=== PATIENT | male | born 1945 | race Caucasian/White ===

== ENCOUNTER 2019-05-22 15:08 | Outpatient (CLI) | payer MEDICARE, MEDICAID, SELFPAY | END 2019-05-22 15:09 | disposition home or self-care (01) | LOC: SPT 15:08 | PROVIDERS: Family Provider Family Medicine; PCP Family Medicine; Visit Provider Podiatrist Foot & Ankle Surgery | DX: L97.512 Non-pressure chronic ulcer of other part of right foot with fat layer exposed (principal) | CPT/HCPCS: L4361 ==

== ENCOUNTER 2020-05-29 16:03 | Emergency (ER) | payer MEDICARE, MEDICAID, SELFPAY ==
[2020-05-29 16:32] VITALS: BP 148/81; PULSE 88; RESP 16; TEMP 36.7; O2SAT 95; BMI 32.3
--- NOTE | 2020-05-29 17:42 | W.ED.EXTPRO ---
HPI - Extremity Problem General: Chief complaint: Extremity Problem,Nontraumatic Stated complaint: Sore on Toe/Diabetic Time Seen by Provider: 05/29/20 17:36 History of Present Illness: HPI Narrative: Patient has a large blood blister on his right big toe lateral aspect that developed today. Patient has been going out and getting firewood. Denies any injury denies any pain course he has neuropathy. Denies any other problems MD Complaint: other (Blood blister right big toe) Onset (ago): day(s) Location: right and toe Associated symptoms: Reports no associated symptoms; Deny fever(s) Review of Systems Const: Denies: fever(s) or chills Skin/Breast: Reports: other (Blood blister on right big toe discharge today. Patient denies known injur) Psych: Denies: anxiety or depression PFS ED PFSH: Medical History (Updated 05/26/19 @ 12:32 by Raul Mckeon DPM) GERD (gastroesophageal reflux disease) Hyperglycemia Hypertension Type 2 diabetes mellitus with diabetic neuropathy, without long-term current use of insulin Surgical History (Updated 05/26/19 @ 12:12 by Raul Mckeon DPM) Hx of cataract surgery Hx of hernia repair Family History Denies family history of Diabetes CAD (coronary artery disease) Clotting disorder Dementia Hyperlipidemia Psychiatric illness Chronic kidney disease (CKD) Suicide Anesthesia complication Bleeding disorder Family history of premature coronary artery disease Lung disease Cancer Hypertension Stroke Social History (Updated 05/29/20 @ 16:36 by Alvin Strange RN) Smoking and tobacco status: current every day smoker cigarettes Packs smoked per day: 1 Alcohol intake: current Alcohol intake frequency: 3 or more drinks per day Substance/Drug Use: never Current occupational status: retired Physical Exam Const: COMMON NORMALS: no acute distress Psych: COMMON NORMALS: mental status grossly normal Skin: OTHER: Blood blister lateral aspect of right big toe slight redness in her base of nail no swelling noted does not appear ischemic not gangrenous no foul smell. Dressing replaced between toes patient can follow-up primary care Course Vital Signs: Vital signs: Vital Signs Temperature 98.1 F 05/29/20 16:32 Pulse Rate 88 05/29/20 16:32 Respiratory Rate 16 05/29/20 16:32 Blood Pressure 148/81 05/29/20 16:32 Pulse Oximetry 95 05/29/20 16:32 MDM - Extremity (Nontraumatic) MDM Narrative: Medical decision making narrative: Toe does not appear infected does not appear to be any foreign body noted patient. Does feel to be a rubbing blister from glide in his firewood and carrying it. Patient is followed primary care on Tuesday our return here if worsens over next 3 days. Patient will be placed on prophylactic antibiotic. Discharge Plan Discharge Prescriptions: No Action albuterol sulfate 90 mcg/actuation HFA aerosol inhaler INHALATION RF: 0 ranitidine HCl 150 mg tablet PO RF: 0 Januvia 100 mg tablet PO RF: 0 gabapentin 100 mg capsule PO RF: 0 polyethylene glycol 3350 17 gram/dose powder PO RF: 0 tramadol 50 mg tablet PO RF: 0 lisinopril 20 mg tablet PO RF: 0 furosemide 40 mg tablet PO RF: 0 (DME) CAM WALKER Qty: 1 RF: 0 mupirocin 2 % ointment 1 applic TOPICAL BID Qty: 30 RF: 0 Coding Level of Care Code ED Coloring Room Man for Shaneg Nanci
[2020-05-29 17:43] VITALS: BP 131/76; PULSE 81; RESP 16; O2SAT 97
== END 2020-05-29 17:57 | disposition home or self-care (01) ==
PROVIDERS: Emergency Provider Nurse Practitioner Family; PCP Family Medicine
DX: S90.421A Blister (nonthermal), right great toe, initial encounter (principal); X58.XXXA Exposure to other specified factors, initial encounter; I10 Essential (primary) hypertension; E11.40 Type 2 diabetes mellitus with diabetic neuropathy, unspecified; F17.210 Nicotine dependence, cigarettes, uncomplicated
CPT/HCPCS: 99282

== ENCOUNTER 2021-01-29 14:28 | Outpatient (CLI) | payer MEDICARE, MEDICAID, SELFPAY ==
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
== END 2021-01-29 14:29 | disposition home or self-care (01) ==
LOC: RAD 14:29
PROVIDERS: PCP Family Medicine; Visit Provider Urology
DX: R31.9 Hematuria, unspecified (principal)
CPT/HCPCS: 74018; 84153

== ENCOUNTER 2021-02-02 | Outpatient (CLI) | payer MEDICARE, MEDICAID, SELFPAY | END 2021-02-02 00:01 | disposition home or self-care (01) | LOC: RAD 10-06 09:30 | PROVIDERS: PCP Family Medicine; Visit Provider Urology | DX: Z12.5 Encounter for screening for malignant neoplasm of prostate (principal); R31.9 Hematuria, unspecified | CPT/HCPCS: 81003; 87077; 87086; 87184; G0103 ==

== ENCOUNTER → 2021-02-02 13:30 | Outpatient (BNVA) | payer MEDICARE, MEDICAID, SELFPAY | PROVIDERS: PCP Family Medicine; Visit Provider Urology | DX: R31.9 Hematuria, unspecified (principal) | CPT/HCPCS: G0103 ==

== ENCOUNTER 2021-02-09 12:34 | Inpatient (IN) | payer MEDICARE, MEDICAID, SELFPAY ==
[2021-02-09] VITALS (69 sets, daily range): BP systolic 110–160; BP diastolic 54–86; PULSE 61–98; RESP 10–23; TEMP 36.3–36.6; O2SAT 92–100; BMI 33.0
--- NOTE | 2021-02-09 12:55 | XRR_ITS ---
PROCEDURE INFORMATION: Exam: XR Chest Exam date and time: 02/09/2021 12:55 PM Age: 75 years old Clinical indication: Cough and dyspnea; Additional info: Dyspnea/cough TECHNIQUE: Imaging protocol: XR of the chest. Views: 1 view. COMPARISON: CR Chest 1 [place] [id number] 09/25/2018 1:59 PM FINDINGS: Lungs: There is bilateral interstitial pulmonary fibrosis which is unchanged. No acute pulmonary infiltrates are seen. Pleural spaces: Unremarkable. No pleural effusion. No pneumothorax. Heart/Mediastinum: Unremarkable. No cardiomegaly. Bones/joints: Old healed right clavicle fracture. XR/XR chest 1V portable [id number] IMPRESSION: Stable interstitial pulmonary fibrosis. No acute chest abnormality. Radiation Dose CTDIVOL = (mGy): DLP = (mGy-cm)
--- NOTE | 2021-02-09 12:56 | ECG_ITS ---
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 Systemsmer[facility] health [email or web address]/store/NU/[id number] f
--- NOTE | 2021-02-09 13:12 | US_ITS ---
WS: [id number] ULTRASOUND-GUIDED PARACENTESIS CLINICAL INFORMATION: ascites COMPARISON: None. Procedure Informed consent: The risks, benefits, and alternatives of the procedure were discussed with the luisa ent. Verbal and written consent was obtained. Timeout: A timeout was performed to confirm the correct patient, procedure, and site. Preparation: A suitable skin site was identified. The patient was prepped and draped in usual sterile fashion. Lidocaine 1% was used for local anesthesia. Catheter: 4 [place] One-step Yueh catheter. Side: Right Lower quadrant. Fluid Volume: 4700 ml Color: Clear yellow DISPOSITION: Discarded safely. Complications: None. US/US paracentesis abd w [id number] IMPRESSION: Uncomplicated ultrasound-guided paracentesis. Removal of 4700 cc
[2021-02-09 13:27] LABS: Basophils # 0.1 10^3/uL (0.0-0.1); Basophils % 0.5 %; Eosinophils # 0.1 10^3/uL (0.0-0.8); Eosinophils % 0.5 %; Hematocrit 38.9 % (42.0-52.0); Hemoglobin 13.5 g/dL (11.7-16.6); Lymphocytes # 0.5 10^3/uL (0.8-4.8); Lymphocytes % 4.8 %; Mean Corpuscular HGB Conc 34.7 g/dL (30.0-36.0); Mean Corpuscular Hemoglobin 31.7 pg (28.0-34.0); Mean Corpuscular Volume 91.3 fl (80-94); Mean Platelet Volume 10.4 fL (7.4-10.4); Monocytes # 0.8 10^3/uL (0.2-0.9); Monocytes % 7.6 %; Neutrophils # 8.94 10^3/uL (1.8-7.7); Neutrophils % 85.9 %; Nucleated Red Blood Cells # 0.1 /100WBC; Nucleated Red Blood Cells % 0.5 %; Platelet Count 176 10^3/cmm (130-400); Red Blood Count 4.26 10^6/uL (4.1-5.3); White Blood Count 10.4 10^3/uL (4.0-10.0)
--- NOTE | 2021-02-09 13:41 | ED_ITS ---
HPI - SOB/Dyspnea General: Chief Complaint: Shortness of Breath/Dyspnea Stated Complaint: SOB, CHF Time Seen by Provider: 02/09/21 12:43 History of Present Illness: HPI Narrative: [id number] male presents to the emergency room with complaints of shortness of breath cough and abdominal bloating and discomfort. No chest pain. Patient has significant shortness of breath but denies any chest pain. He has not had any vomiting or diarrhea. No productive cough. Nominal distention which is worsening is a history of cirrhosis and congestive heart failure. MD elicited complaint: shortness of breath and cough Pertinent past history: congestive heart failure Onset (ago): hour(s) Timing: constant Severity: moderate Exacerbating factors: lying flat, exertion and coughing Relieving factors: oxygen and rest Known history of: congestive heart failure, diabetes and other (Liver disease) Associated symptoms: Reports chest congestion and cough; Deny abdominal pain, chest pain, diaphoresis, dizziness, extremity pain, fever(s), hemoptysis, lightheadedness, myalgias, nausea, orthopnea, palpitations, paresthesias, polydipsia, polyuria, rash, sense of impending doom, syncope or vomiting Treatment prior to arrival: oxygen Review of Systems Const: Denies: fever(s) or diaphoresis ENMT: Denies: throat pain, ear or mastoid pain, nasal discharge or nasal congestion Card: Denies: chest pain, palpitations, lightheadedness, syncope or orthopnea Resp: Reports: chest congestion; Denies: hemoptysis GI: Denies: abdominal pain, nausea or vomiting : Denies: flank pain, dysuria, urinary frequency or urinary urgency Musc: Denies: extremity pain Skin/Breast: Denies: rash or pruritus Neuro: Denies: dizziness Endo: Denies: polyuria or polydipsia PFSH ED PFSH: Medical History (Updated 02/09/21 @ 18:25 by Juan Fonseca MD) Acute kidney injury superimposed on CKD Alcoholism Anasarca COPD exacerbation GERD (gastroesophageal reflux disease) Hyperglycemia Hypertension Microscopic hematuria Pulmonary fibrosis Type 2 diabetes mellitus with diabetic neuropathy, without long-term current use of insulin Surgical History Hx of cataract surgery Hx of hernia repair Family History Father , IN MID 80'S of unknown cause Mother , MID 80'S Cancer MELON[place] Social History Smoking and tobacco status: current every day smoker cigarettes Packs smoked per day: 1 Alcohol intake: current Alcohol intake frequency: 3 or more drinks per day Marital status: Current occupational status: retired History of recent travel: No Physical Exam Const: COMMON NORMALS: no acute distress GENERAL APPEARANCE: cooperative and comfortable ORIENTATION/CONSCIOUSNESS: Yes awake, Yes oriented to person, Yes oriented to place and Yes oriented to time HENMT: COMMON NORMALS: normocephalic, atraumatic and hearing grossly normal bilaterally HEAD & SCALP: normocephalic and atraumatic Neck/C-Spine: COMMON NORMALS: no JVD Resp: COMMON NORMALS: normal respiratory effort, No retractions, No use of accessory muscles and clear to auscultation bilaterally AUSCULTATION: clear to auscultation bilaterally Cardio: COMMON NORMALS: no JVD, regular rate, regular rhythm and No murmurs present (Cardio) RATE: regular rate RHYTHM: regular rhythm GI: COMMON NORMALS: Soft to palpation and No hepatosplenomegaly present INSPECTION: Yes abdominal distension and Yes Fluid wave present AUSCULTATION: Yes Hypoactive bowel sounds present PALPATION: Yes Soft to palpation, Yes Tenderness to palpation present (GI), No Guarding due to palpation present (GI) and Yes No hepatosplenomegaly present PERCUSSION: dullness to percussion and Fluid wave present Extremity: COMMON NORMALS: normal to inspection, capillary refill normal, no clubbing, cyanosis or edema, no calf tenderness and no pedal edema Neuro: SENSORIUM/ORIENTATION: Yes oriented to person, Yes oriented to place and Yes oriented to time Skin: COMMON NORMALS: no rashes or lesions noted GENERAL SKIN EXAM: no rashes or lesions noted Course Vital Signs: Vital signs: Vital Signs Temperature 97.6 F 02/10/21 04:00 Pulse Rate 88 02/10/21 07:45 Respiratory Rate 17 02/10/21 07:25 Blood Pressure 131/78 02/10/21 06:40 Pulse Oximetry 94 02/10/21 07:25 MDM - SOB/Dyspnea MDM Narrative: Medical decision making narrative: Patient significantly hyponatremic. Patient has pulmonary fibrosis with his degree of ascites is worsening his difficulty breathing. At time of dictation Dr. Hong is doing paracentesis. I have discussed with Dr. Sparks. orders written patient be admitted to the ICU. Lab Data: Labs: Lab Results 02/09/21 02/09/21 02/09/21 13:15 13:15 13:15 WBC 10.4 10^3/uL H 10 ^3/uL (4.0-10.0) RBC 4.26 10^6/uL 10^6 /uL (4.1-5.3) Hgb 13.5 g/dL g/dL (11.7-16.6) Hct 38.9 % L % (42.0-52.0) MCV 91.3 fl fl (80-94) MCH 31.7 pg pg (28.0-34.0) MCHC 34.7 g/dL g/dL (30.0-36.0) RDW 14.0 % % (12.1-15.1) Plt Count 176 10^3/cmm 10^3 /cmm (130-400) MPV 10.4 fL fL (7.4-10.4) Neut % (Auto) 85.9 % % Lymph % (Auto) 4.8 % % [place] % (Auto) 7.6 % % Eos % (Auto) 0.5 % % Baso % (Auto) 0.5 % % Neut # (Auto) 8.94 10^3/uL H 10 ^3/uL (1.8-7.7) Lymph # (Auto) 0.5 10^3/uL L 10^ 3/uL (0.8-4.8) [place] # (Auto) 0.8 10^3/uL 10^3/ uL (0.2-0.9) Eos # (Auto) 0.1 10^3/uL 10^3/ uL (0.0-0.8) Baso # (Auto) 0.1 10^3/uL 10^3/ uL (0.0-0.1) Nucleated RBC % (a uto) 0.5 % % Nucleated RBCs # 0.1 /100WBC /100W BC PT INR APTT Sodium Cancelled Potassium Cancelled Chloride Cancelled Carbon Dioxide Cancelled Anion Gap Cancelled BUN Cancelled Creatinine Cancelled GFR Calculation Cancelled Glucose Cancelled Estimat Average Gl ucose Hemoglobin A1c Calculated Osmolal ity Cancelled Calcium Cancelled Total Bilirubin Cancelled AST Cancelled ALT Cancelled Alkaline Phosphata se Cancelled Ammonia Troponin T Baselin e Cancelled Troponin T 120 Min [place] Troponin T NT-Pro-B Natriuret Pep Cancelled Total Protein Cancelled Albumin Cancelled Globulin Cancelled Procalcitonin 02/09/21 02/09/21 02/09/21 13:15 13:15 15:10 WBC RBC Hgb Hct MCV MCH MCHC RDW Plt Count MPV Neut % (Auto) Lymph % (Auto) [place] % (Auto) Eos % (Auto) Baso % (Auto) Neut # (Auto) Lymph # (Auto) [place] # (Auto) Eos # (Auto) Baso # (Auto) Nucleated RBC % (a uto) Nucleated RBCs # PT Cancelled INR Cancelled APTT Cancelled Sodium 116 mmol/L L* mmo l/L (136-145) Potassium 3.6 mmol/L mmol/L (3.5-5.1) Chloride 83 mmol/L L mmol/ L (98-107) Carbon Dioxide 22 mmol/L mmol/L (22-29) Anion Gap 14.6 (5-19) BUN 25 mg/dL H mg/dL (8-23) Creatinine 1.6 mg/dL H mg/dL (0.7-1.2) GFR Calculation Not Reportable Glucose 121 mg/dL H mg/dL (65-115) Estimat Average Gl ucose Hemoglobin A1c Calculated Osmolal ity 248 mOsm/kg L mOs m/kg (285-295) Calcium 7.9 mg/dL L mg/dL (8.5-10.5) Total Bilirubin 1.8 mg/dL H mg/dL (0.15-1.2) AST 55 U/L H U/L (0-40) ALT 19 U/L U/L (0-41) Alkaline Phosphata se 128 IU/L IU/L (40-130) Ammonia Cancelled Troponin T Baselin e Troponin T 120 Min [place] Troponin T NT-Pro-B Natriuret Pep 2187 pg/mL H pg/m L (0-450) Total Protein 6.4 g/dL L g/dL (6.6-8.7) Albumin 2.7 g/dL L g/dL (3.5-5.2) Globulin 3.7 g/dL g/dL (1.3-4.6) Procalcitonin 02/09/21 02/09/21 02/09/21 15:10 15:10 15:10 WBC RBC Hgb Hct MCV MCH MCHC RDW Plt Count MPV Neut % (Auto) Lymph % (Auto) [place] % (Auto) Eos % (Auto) Baso % (Auto) Neut # (Auto) Lymph # (Auto) [place] # (Auto) Eos # (Auto) Baso # (Auto) Nucleated RBC % (a uto) Nucleated RBCs # PT 16.00 SECONDS H S ECONDS (12.1-14.9) INR 1.24 H (0.8-1.2) APTT 39.4 SECONDS H SE CONDS (23.9-36.7) Sodium Potassium Chloride Carbon Dioxide Anion Gap BUN Creatinine GFR Calculation Glucose Estimat Average Gl ucose Hemoglobin A1c Calculated Osmolal ity Calcium Total Bilirubin AST ALT Alkaline Phosphata se Ammonia 86 umol/L H umol/ L (16-60) Troponin T Baselin e 30 ng/L H ng/L (0-15) Troponin T 120 Min [place] Troponin T NT-Pro-B Natriuret Pep Total Protein Albumin Globulin Procalcitonin 02/09/21 02/09/21 02/09/21 15:10 15:10 15:30 WBC RBC Hgb Hct MCV MCH MCHC RDW Plt Count MPV Neut % (Auto) Lymph % (Auto) [place] % (Auto) Eos % (Auto) Baso % (Auto) Neut # (Auto) Lymph # (Auto) [place] # (Auto) Eos # (Auto) Baso # (Auto) Nucleated RBC % (a uto) Nucleated RBCs # PT INR APTT Sodium Potassium Chloride Carbon Dioxide Anion Gap BUN Creatinine GFR Calculation Glucose Estimat Average Gl ucose 85 Hemoglobin A1c 4.6 % % (4.0-6.0) Calculated Osmolal ity Calcium Total Bilirubin AST ALT Alkaline Phosphata se Ammonia Troponin T Baselin e Troponin T 120 Min [place] 29.46 ng/L H ng/L (0-15) Delta Troponin T -0.54 ABS# L ABS# (0-10) NT-Pro-B Natriuret Pep Total Protein Albumin Globulin Procalcitonin 0.35 ng/mL ng/mL (0-0.5) Discharge Plan Discharge Patient Disposition: Admitted As Inpatient Admit Provider: Juan Fonseca Clinical Impression: Cirrhosis of liver, Type 2 diabetes mellitus with diabetic neuropathy, without long-term current use of insulin, Congestive heart failure, Ascites Condition: Stable Coding Level of Care Code ED [place] Developer for Chg Fwd Exam Comprehensive
--- NOTE | 2021-02-09 14:56 | ECG_ITS ---
[facility] Test Date: 2021-02-09 Pat Name: Den Bedolla Department: Room: Gender: Male [employer]: : 1945 Requested By: oRlf Jim Order Number: [id number] Reading MD: DAGOBERTO BECKHAM Measurements Intervals [place] Rate: 83 P: 75 MD: 179 QRS: 54 QRSD: 112 T: 40 QT: 395 QTc: 464 Interpretive Statements SINUS RHYTHM MODERATE INTRAVENTRICULAR CONDUCTION DELAY [110+ ms QRS DURATION] Compared to ECG 02/09/2021 14:32:55 Intraventricular conduction delay now present Electronically Signed On 02-09-2021 21:58:52 CDT by DAGOBERTO BECKHAM [id number]
[2021-02-09 15:41] LABS: INR 1.24 (0.8-1.2)
[2021-02-09 15:42] LABS: Ammonia 86 umol/L (16-60); Partial Thromboplastin Time 39.4 SECONDS (23.9-36.7)
[2021-02-09 15:44] LABS: Troponin(5th) Baseline 30 ng/L (0-15)
[2021-02-09 15:50] LABS: Alanine Aminotransferase 19 U/L (0-41); Albumin Level 2.7 g/dL (3.5-5.2); Alkaline Phosphatase 128 IU/L (40-130); Anion Gap 14.6 (5-19); Aspartate Amino Transferase 55 U/L (0-40); Blood Urea Nitrogen 25 mg/dL (8-23); Calcium 7.9 mg/dL (8.5-10.5); Carbon Dioxide 22 mmol/L (22-29); Chloride 83 mmol/L (98-107); Globulin 3.7 g/dL (1.3-4.6); Glucose 121 mg/dL (65-115); Osmolality Calculated 248 mOsm/kg (285-295); Potassium 3.6 mmol/L (3.5-5.1); Total Bilirubin 1.8 mg/dL (0.15-1.2); Total Protein 6.4 g/dL (6.6-8.7)
[2021-02-09 15:52] LABS: NT Pro B Type Natriuretic Pept 2187 pg/mL (0-450)
[2021-02-09 15:57] LABS: Sodium 116 mmol/L (136-145)
[2021-02-09 16:38] LABS: Troponin 5 2HR 29.46 ng/L (0-15)
[2021-02-09 16:39] LABS: Troponin 5 2HR Delta -0.54 ABS# (0-10)
--- NOTE | 2021-02-09 17:43 | PC.PHAR ---
pt states he takes care of his own medications-pt states he is no longer taking gabapentin 100mg bid ext med history shows last filled on 01/27/21 30d/s pt states he is not taking and going to send back to the pharmacy-
--- NOTE | 2021-02-09 18:17 | PM.HP ---
Providers/Chief Complaint Primary Care Provider: Cristo Mccormick DO Chief Complaint: SOB, CHF History of Present Illness Den Bedolla is a 75 year old male with a past medical history of interstitial lung disease/pulmonary fibrosis, COPD, current smoker, noninsulin-dependent type 2 diabetes mellitus, history of alcoholism, history of fluid overload, history of diastolic CHF, history of chronic kidney disease, history of hyponatremia, history of normocytic anemia, who presents to [facility] due to wheezing, shortness of breath, cough, abdominal distention. Patient tells me that for the last few days he has been feeling increasingly short of breath at rest and with exertion, he tells that he always has a cough, but now more productive, no fevers, no chills, he tested negative for [facility] to patient today, no history of Covid vaccination, no known exposure to COVID-19, he tells me that his abdomen has becoming more distended, denies a history of paracentesis in the past, he does not know why his abdomen is more distended, denies a history of alcoholic hepatitis or cirrhosis, denies a history of hepatitis c, his last drink of alcohol was yesterday, he had 1 beer. Denies any lightheadedness, dizziness, denies any dehydration, no falls, no headache, blurry vision, no seizure-like symptoms in the emergency room, he was found to have hyponatremia, serum 116, requiring 3 L, abdomen was distended, had 4.7 L of fluid removed. Currently alert oriented x3, normotensive blood pressures 130s over 60s, pulse 81, saturations in the high 90s on 3 L, patient's grossly edematous, has diffuse anasarca, has active wheezing on exam, hospital team was called for admission. Review of Systems Const: Denies: fever(s), chills, body aches, fatigue or malaise Eyes: Denies: change in vision or blurry vision ENMT: Denies: throat pain or nasal congestion Card: Reports: edema, swelling of feet/ankles and orthopnea; Denies: chest pain, palpitations, irregular heart rhythm, lightheadedness or syncope Resp: Reports: dyspnea, productive cough and wheezing; Denies: non-productive cough GI: Reports: abdominal pain; Denies: nausea, vomiting, hematemesis, coffee ground emesis, diarrhea, constipation, hematochezia or melena : Denies: flank pain, difficulty urinating, dysuria or urinary frequency Musc: Denies: neck pain or back pain Skin/Breast: Denies: rash Neuro: Denies: headache(s), dizziness or vertigo Endo: Denies: polyuria or polydipsia Keshav/Lymph: Reports: easy bruising Medications/Allergies Home Medications Medication Instructions Recorded Confirmed Last Taken Type CAM WALKER #1 each 05/22/19 02/09/21 Unknown Rx albuterol sulfate 90 mcg/actuation 2 puff INHALATION Q4H PRN 05/22/19 02/09/21 Unknown History aerosol inhaler polyethylene glycol 3350 17 17 g PO DAILY PRN 05/22/19 02/09/21 Unknown History gram/dose oral powder sitagliptin 100 mg tablet 100 mg PO QAM 05/22/19 02/09/21 02/09/21 08:00 History mupirocin 2 % topical ointment 1 applic TOPICAL BID PRN gm 01/29/21 02/09/21 Unknown History furosemide 20 mg PO DAILY PRN 02/09/21 02/09/21 02/09/21 History multivitamin 1 tab PO DAILY 02/09/21 02/09/21 Unknown History potassium chloride 10 meq PO DAILY PRN 02/09/21 02/09/21 02/09/21 History sildenafil [Viagra] 50 mg PO PRN PRN 02/09/21 02/09/21 Unknown History Allergies Allergy/AdvReac Type Severity Reaction Status Date / Time No Known Allergies Allergy Verified 02/09/21 17:41 PFSH Acute PFSH: Medical History (Updated 02/09/21 @ 18:25 by Juan Fonseca MD) Acute kidney injury superimposed on CKD Alcoholism Anasarca COPD exacerbation GERD (gastroesophageal reflux disease) Hyperglycemia Hypertension Microscopic hematuria Pulmonary fibrosis Type 2 diabetes mellitus with diabetic neuropathy, without long-term current use of insulin Surgical History Hx of cataract surgery Hx of hernia repair Family History Father , IN MID 80'S of unknown cause Mother , MID 80S Cancer MELONOMA Social History Smoking and tobacco status: current every day smoker cigarettes Packs smoked per day: 1 Alcohol intake: current Alcohol intake frequency: 3 or more drinks per day Marital status: Current occupational status: retired History of recent travel: No Vitals/I&O/Wt Last Vital Signs Temp 97.9 F 02/09/21 13:14 Pulse 81 02/09/21 13:14 Resp 19 H 02/09/21 13:14 BP 136/68 02/09/21 13:14 Pulse Ox 99 02/09/21 13:14 Weight last 48 hrs Weight 104.326 kg Physical Exam Const: COMMON NORMALS: no acute distress and patient oriented x3 GENERAL APPEARANCE: cooperative and comfortable HENMT: COMMON NORMALS: normocephalic HEAD & SCALP: normocephalic Eye: COMMON NORMALS: Equal, round and reactive pupils present, EOMs intact bilaterally and no papilledema PUPIL: Yes Equal, round and reactive pupils present Neck/C-Spine: COMMON NORMALS: full ROM and no lymphadenopathy THYROID: Thyroid normal Lymph: LYMPHATIC: no lymphadenopathy noted Resp: COMMON NORMALS: normal respiratory effort, No retractions and No use of accessory muscles AUSCULTATION: wheezes Cardio: COMMON NORMALS: regular rate, regular rhythm, S1 normal heart sound present, S2 normal heart sound present, No gallops present (Cardio), No clicks present (Cardio) and No murmurs present (Cardio) RATE: regular rate RHYTHM: regular rhythm HEART SOUNDS: S1 normal heart sound present and S2 normal heart sound present GI: COMMON NORMALS: Normal to inspection, nondistended, normoactive bowel sounds present and Soft to palpation OTHER: Abdominal incision scar vertical, Extremity: COMMON NORMALS: normal to inspection and full ROM NARRATIVE EXTREMITY EXAM: 2+ pitting edema, generalized anasarca Neuro: COMMON NORMALS: patient oriented x3, CN's II-XII intact bilaterally, moves all extremities and no focal motor deficits Psych: COMMON NORMALS: mental status grossly normal, Normal thought process present and cooperative THOUGHT PROCESS: Normal thought process present Data : 02/09/21 13:15 02/09/21 15:10 A&P Assessment and plan (1) Acute hyponatremia: -Likely multifactorial from beers Poto tariq, malnutrition, liver cirrhosis -No alarm symptoms and no headaches, no blurry vision, no nausea, no vomiting, no seizures -Serum sodium 116 -Monitor serum sodiums every 4 hours -Urine sodium studies, serum osmolality -For now hold off on hypertonic saline given fluid overload and anasarca -Paracentesis 4.7 L removed, will monitor serum sodiums carefully thereafter -Nephrology consulted -Full code -Heparin for DVT prophylaxis Status: Acute (2) Diastolic CHF: -Currently elevated BNP, evidence of fluid overload -Cardiac echocardiogram pending -Hold off on Lasix therapy given hyponatremia as above -We will consider with albumin therapy based on sodium trend Status: Acute (3) Anasarca: -Related to hypoalbuminemia, diastolic CHF Status: Acute (4) Alcoholism: -Last alcohol drink was last night, 1 beer -CIWA protocol Status: Acute (5) Ascites: -Etiology of ascites is undetermined -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 -CT of the abdomen -Follow liver studies, acute hep panel, HIV, [place] -Hold off on further paracentesis -Monitor paracentesis studies -Zosyn for possible SBP although unlikely Status: Acute (6) COPD exacerbation: -COPD and ILD exacerbation -Solu-Medrol 125 followed by 40 every 12 hours -DuoNeb treatment -Budesonide -Sputum cultures -MRSA PCR -Blood cultures -Monitor respiratory status -CT of the chest -Zosyn for possible pneumonia Status: Acute (7) Pulmonary fibrosis: Status: Acute (8) Acute kidney injury superimposed on CKD: -Secondary to third spacing, ascites -Continue to monitor Status: Acute Additional A&P Information -Type 2 diabetes mellitus, low-dose sliding scale, A1c - Attestations Medical Necessity Statement*: Patient requires hospitalization, inpatient, greater than 2 midnights, ICU, for acute hyponatremia, fluid overload, anasarca, COPD exacerbation, ILD exacerbation, Coding Level of Care 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
[2021-02-09 18:48] LABS: Procalcitonin 0.35 ng/mL (0-0.5)
--- NOTE | 2021-02-09 18:56 | ECG_ITS ---
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
--- NOTE | 2021-02-09 19:01 | P.CONIM_ITS ---
Providers/Reason For Consult Consulting Physician/Specialty*: janet pendleton md/ telenephrology Reason for Consult*: hyponatremia/ renal insufficiency Requesting Physician: Dr. Fonseca Primary Care Provider: Cristo Mccormick DO History of Present Illness History of Present Illness Den Bedolla is a 75 year old male H/O DM, ETOH use, tob use, pulm fibrosis, hematuria, diastolic dysfunction, and htn. Pt is here w/ sob, edema, weight gain. Pt drinks ETOH daily and smokes tob. In ER had a 4.7 l paracentesis. He was found to have a na of 116 and cr 1.6 - renal matias d to consult to help w/ fluid management. Review of Systems General: Reports: 10 or more systems reviewed and unremarkable except in HPI and below Narrative: weak, confused, sob, edema, nausea, GARY, abd distention, confusion, itching. Meds/Allergies Home Medications and Allergies Home Medications Medication Instructions Recorded Confirmed Last Taken Type CAM WALKER #1 each 05/22/19 02/09/21 Unknown Rx albuterol sulfate 90 mcg/actuation 2 puff INHALATION Q4H PRN 05/22/19 02/09/21 Unknown History aerosol inhaler polyethylene glycol 3350 17 17 g PO DAILY PRN 05/22/19 02/09/21 Unknown History gram/dose oral powder sitagliptin 100 mg tablet 100 mg PO QAM 05/22/19 02/09/21 02/09/21 08:00 History mupirocin 2 % topical ointment 1 applic TOPICAL BID PRN gm 01/29/21 02/09/21 Unknown History furosemide 20 mg PO DAILY PRN 02/09/21 02/09/21 02/09/21 History multivitamin 1 tab PO DAILY 02/09/21 02/09/21 Unknown History potassium chloride 10 meq PO DAILY PRN 02/09/21 02/09/21 02/09/21 History sildenafil [Viagra] 50 mg PO PRN PRN 02/09/21 02/09/21 Unknown History Allergies Allergy/AdvReac Type Severity Reaction Status Date / Time No Known Allergies Allergy Verified 02/09/21 17:41 PFSH Acute PFSH: Medical History (Updated 02/09/21 @ 18:25 by Juan Fonseca MD) Acute kidney injury superimposed on CKD Alcoholism Anasarca COPD exacerbation GERD (gastroesophageal reflux disease) Hyperglycemia Hypertension Microscopic hematuria Pulmonary fibrosis Type 2 diabetes mellitus with diabetic neuropathy, without long-term current use of insulin Surgical History Hx of cataract surgery Hx of hernia repair Family History Father , IN MID 80'S of unknown cause Mother , MID 80'S Cancer MELONOMA Social History Smoking and tobacco status: current every day smoker cigarettes Packs smoked per day: 1 Alcohol intake: current Alcohol intake frequency: 3 or more drinks per day Marital status: Current occupational status: retired History of recent travel: No Vitals/I&O/Wt Last Vital Signs Temp 97.9 F 02/09/21 13:14 Pulse 81 02/09/21 13:14 Resp 19 H 02/09/21 13:14 BP 136/68 02/09/21 13:14 Pulse Ox 99 02/09/21 13:14 Weight last 48 hrs Weight 104.326 kg Physical Exam Narrative: EXAM NARRATIVE: obese, NARD vs noted heent-nc/at, eomi, anicteric neck supple lung dull bases and wheezes b/l heart- CAMMIE, + s1, s2 abd distended, +BS + ascites ext 3+ b/l edema neuro- asterixis, confused A&P Additional A&P Information 75 yr old man w/ anasarca. 1. hyponatremia- likely from volume overload, ETOH, and water intake w/ lasix -rec- fluid restrict -check tsh -repeat chemistries -diurese as tolerated -check echo -f/u abd ct scan -monitor labs -4.7 l removed -slowly normalize -getting steroids- less likely adrenal insufficiency -check tsh 2. cr 1.6- h/o ELZBIETA in past w/ cr 3.3/ not sure where baseline is -monitor renal fxn -check ua and urine lytes -renal imaging 3. anemia per medicine seen and examined w/ RN- telehealth visit time spent 50 minutes Consult Attestations Medical Necessity Statement: per medicine Time Spent in Patient Care: Greater than 35 minutes (>than 50% of time spent in counselling and/or direct pt care on unit) . 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
[2021-02-09 20:23] LABS: Blood Urine 3+ (Negative); Glucose Urine UA Norm (Normal); Ketones Urine Negative (Negative); Protein Urine 3+ (Negative); Specific Gravity, Urine 1.015 (1.005-1.030); Urine Appearance Cloudy (CLEAR); Urine Color Dark Yellow (Yellow); pH Urine 5 (5-7)
[2021-02-09 20:24] LABS: Bilirubin Urine Neg (Negative); Leukocyte Esterase Urine Negative (Negative); Nitrate Urine Negative (Negative); Urobilinogen Urine Norm (Negative)
[2021-02-09 20:25] LABS: RBC Urine TOO NUMEROUS TO CNT /hpf (0-2); Squamous Epithelial Cell Urine 0-4 /hpf (0-5)
[2021-02-09 20:26] LABS: Add Urine Culture? Yes; Bacteria Urine 1+ /hpf
[2021-02-09 20:40] LABS: Alanine Aminotransferase 19 U/L (0-41); Albumin Level 2.8 g/dL (3.5-5.2); Alkaline Phosphatase 128 IU/L (40-130); Anion Gap 15.5 (5-19); Aspartate Amino Transferase 55 U/L (0-40); Blood Urea Nitrogen 25 mg/dL (8-23); Carbon Dioxide 23 mmol/L (22-29); Chloride 81 mmol/L (98-107); Globulin 3.6 g/dL (1.3-4.6); Glucose 112 mg/dL (65-115); Osmolality Calculated 247 mOsm/kg (285-295); Potassium 3.5 mmol/L (3.5-5.1); Total Bilirubin 1.9 mg/dL (0.15-1.2); Total Protein 6.4 g/dL (6.6-8.7); Uric Acid 8.7 mg/dL (3.4-7.0)
[2021-02-09 20:41] LABS: Troponin 5 6HR 31.66 ng/L (0-15); Troponin 5 6HR Delta 1.66 ng/L (0-12)
--- NOTE | 2021-02-09 21:03 | PC.NURSE ---
Transfer Note Patient transferred to ICU from ER via bed. Handoff report received from NORMAN Orozco. Patient oriented to environment and equipment. Covering service notified. Orders reviewed and will continue to monitor. Family and/or customer retention representative notified. All patient belongings at bedside including phone, wallet, and clothing. Patient alert and oriented x4. No wounds or skin issues noted at this time. Patient has 2+ pitting edema bilaterally and abdomen is distended.
[2021-02-09 21:06] LABS: Sodium 116 mmol/L (136-145)
--- NOTE | 2021-02-09 21:07 | CTR_ITS ---
PROCEDURE INFORMATION: Exam: CT Chest Without Contrast; Diagnostic Exam date and time: 02/09/2021 9:07 PM Age: 75 years old Clinical indication: Bloating; Dyspnea; Additional info: Wheezing, SOB, valarie, abdominal distention TECHNIQUE: Imaging protocol: Diagnostic computed tomography of the chest without contrast. Radiation optimization: All CT scans at this facility use at least one of these dose optimization techniques: automated exposure control; mA and/or kV adjustment per patient size (includes targeted exams where dose is matched to clinical indication); or iterative reconstruction. COMPARISON: [place] [id number] 02/09/2021 1:23 PM RADIATION DOSE METRICS: Total DLP (mGy-cm): 2335.44 FINDINGS: Lungs: There is moderate pulmonary fibrosis. Pleural spaces: Small right pleural effusion. Heart: Unremarkable. No cardiomegaly. No pericardial effusion. Aorta: Unremarkable. No aortic aneurysm. Lymph nodes: Multiple, nonspecific, enlarged mediastinal lymph nodes, likely reactive. Diaphragm: Small hiatal hernia. Bones/joints: Unremarkable. No acute fracture. Soft tissues: Unremarkable. IMPRESSION: 1. There is moderate pulmonary fibrosis. 2. Multiple, nonspecific, enlarged mediastinal lymph nodes, likely reactive. 3. Small hiatal hernia. 4. Small right pleural effusion. PROCEDURE INFORMATION: Exam: CT Abdomen And Pelvis Without Contrast Exam date and time: 02/09/2021 9:07 PM Age: 75 years old Clinical indication: Bloating; Dyspnea; Additional info: Wheezing, SOB, valarie, abdominal distention TECHNIQUE: Imaging protocol: Computed tomography of the abdomen and pelvis without contrast. Radiation optimization: All CT scans at this facility use at least one of these dose optimization techniques: automated exposure control; mA and/or kV adjustment per patient size (includes targeted exams where dose is matched to clinical indication); or iterative reconstruction. COMPARISON: [place]d w [id number] 02/09/2021 1:23 PM RADIATION DOSE METRICS: Total DLP (mGy-cm): 2335.44 FINDINGS: Tubes, catheters and devices: There is a Valadez catheter with the balloon present in the urinary bladder. Lungs: The lung bases are clear. No effusion Liver: There is cirrhotic morphology of the liver. Gallbladder and bile ducts: No wall thickening, pericholecystic fluid or stones. Pancreas: Normal. No ductal dilation. Spleen: Calcifications of the spleen, likely related to granulomatous disease or prior injury. Adrenal glands: Normal. No mass. Kidneys and ureters: Normal. No hydronephrosis. Stomach and bowel: The sigmoid colon is mid mildly distended with gas and stool but no evidence of a volvulus. Findings may be seen in gastroenteritis. Appendix: No evidence of appendicitis. Intraperitoneal space: There is a small amount of ascites. Vasculature: There is mild atherosclerotic disease. Lymph nodes: Unremarkable. No enlarged lymph nodes. Urinary bladder: Unremarkable as visualized. Reproductive: Unremarkable as visualized. Bones/joints: Unremarkable. No acute fracture. Soft tissues: There is anasarca. CT/CT chest abd pel wo con IMPRESSION: 1. Cirrhosis. 2. There is a small amount of ascites. 3. The sigmoid colon is mildly distended with gas and stool but no evidence of a volvulus. Findings may be seen in gastroenteritis. Radiation Dose CTDIVOL = (mGy): DLP = 2335.44~2335.44 (mGy-cm)
[2021-02-09 21:46] LABS: Eosinophil Urine No Eosinophils Seen
--- NOTE | 2021-02-09 21:49 | PC.NURSE ---
Called Dr. Higgins over sodium being 116. Received orders to discontinue IV fluids and administer 20mg IVP of lasix. Continue care.
[2021-02-09 21:53] LABS: Charge for UA Resulting for Rev
[2021-02-09 21:59] LABS: Folate Level 15.6 ng/mL (4.5-32.2)
[2021-02-09 22:00] LABS: Lipase 57 U/L (13-60); Thyroid Stimulating Hormone 4.94 uIU/mL (0.27-4.20)
[2021-02-09 22:06] LABS: HIV 1 & 2 Antibody Non-Reactive (Non-Reactiv); HIV 1 & 2 Antigen Non-Reactive (Non-Reactiv)
[2021-02-09 22:09] LABS: Potassium, Radom Urine 16 mmol/L; Urine Creatinine 55 mg/dL (39-259)
[2021-02-09 22:11] LABS: Urine Eosinophil Count 0 (0-0)
[2021-02-09 22:13] LABS: SARS Covid-2 Antigen Negative (Negative)
[2021-02-09 22:13] LABS: Estmated Average Glucose 85; Hemoglobin A1C 4.6 % (4.0-6.0)
[2021-02-09 22:14] LABS: Urine Random Chloride 18 mmol/L; Urine Random Sodium 11 mmol/L
[2021-02-09 22:18] LABS: Add Urine Microscopic? YES; Bilirubin Urine Neg (Negative); Blood Urine 3+ (Negative); Glucose Urine UA Norm (Normal); Ketones Urine Negative (Negative); Leukocyte Esterase Urine 1+ (Negative); Nitrate Urine Negative (Negative); Protein Urine 3+ (Negative); Urine Appearance Cloudy (CLEAR); Urine Color Other (Yellow); Urobilinogen Urine Norm (Negative); pH Urine 5 (5-7)
[2021-02-09] MEDS: FUROsemide 10 mg/mL SDV 2mL 20 MG IVP (22:18)
[2021-02-09] MEDS: heparin 5,000 unit/mL INJ 1 mL 5000 UNIT SUBCUT (22:19)
[2021-02-09 22:21] LABS: Urea Nitrogen,Urine Random 221 mg/dL
[2021-02-09 22:45] LABS: Vitamin B12 > 2000 pg/mL (232-1245)
[2021-02-09 22:58] LABS: Hepatitis A Antibody IgM Non-Reactive (Nonreactive); Hepatitis B Core IgM Reactive (Nonreactive); Hepatitis B Surface Antigen Non-Reactive (Nonreactive); Hepatitis C Virus Antibody Non-Reactive (Nonreactive)
[2021-02-09] MEDS: piperacillin-tazobactam 3.375 GM in sodium chloride 0.9% (plus) 50 ML IV (23:41)
[2021-02-10] VITALS (143 sets, daily range): BP systolic 88–154; BP diastolic 51–89; PULSE 69–101; RESP 7–29; TEMP 36.3–36.7; O2SAT 90–99; BMI 33.6
[2021-02-10 01:09] LABS: Sodium 117 mmol/L (136-145)
[2021-02-10 05:06] LABS: Basophils % 0.1 %; Hematocrit 37.6 % (42.0-52.0); Hemoglobin 12.8 g/dL (11.7-16.6); Lymphocytes # 0.2 10^3/uL (0.8-4.8); Lymphocytes % 2.3 %; Mean Corpuscular Hemoglobin 30.8 pg (28.0-34.0); Mean Corpuscular Volume 90.4 fl (80-94); Mean Platelet Volume 10.1 fL (7.4-10.4); Monocytes # 0.1 10^3/uL (0.2-0.9); Monocytes % 1.5 %; Neutrophils # 7.24 10^3/uL (1.8-7.7); Neutrophils % 95.8 %; Nucleated Red Blood Cells % 0 %; Platelet Count 141 10^3/cmm (130-400); Red Blood Count 4.16 10^6/uL (4.1-5.3); Red Cell Distribution Width 13.7 % (12.1-15.1); White Blood Count 7.6 10^3/uL (4.0-10.0)
[2021-02-10 05:15] LABS: INR 1.34 (0.8-1.2)
[2021-02-10 05:28] LABS: Alanine Aminotransferase 18 U/L (0-41); Albumin Level 2.4 g/dL (3.5-5.2); Alkaline Phosphatase 114 IU/L (40-130); Aspartate Amino Transferase 52 U/L (0-40); Blood Urea Nitrogen 26 mg/dL (8-23); Calcium 7.8 mg/dL (8.5-10.5); Carbon Dioxide 22 mmol/L (22-29); Chloride 85 mmol/L (98-107); Ferritin 249 ng/mL (30-400); Globulin 3.4 g/dL (1.3-4.6); Glucose 179 mg/dL (65-115); Iron 65 ug/dL (59-158); Magnesium 2.3 mg/dL (1.7-2.3); Osmolality Calculated 255 mOsm/kg (285-295); Percent Saturation 36.9 % (20-50); Phosphorus 4.9 mg/dL (2.5-4.5); Total Iron Binding Capacity 176 mcg/dl; Total Protein 5.8 g/dL (6.6-8.7); Unsaturated Iron Binding 111 ug/dL (112-347)
[2021-02-10 05:39] LABS: Anion Gap 14.8 (5-19); Potassium 3.8 mmol/L (3.5-5.1); Sodium 118 mmol/L (136-145)
[2021-02-10] MEDS: piperacillin-tazobactam 3.375 GM in sodium chloride 0.9% (plus) 50 ML IV ×3 (06:41→21:19)
--- NOTE | 2021-02-10 07:21 | PC.NURSE ---
Shift Note Frequent safety and comfort rounds continue. Orders and/or nursing care completed as indicated. Patient monitored for response to intervention and treatment(s). Education provided includes medications. Patient verbalizes understanding of teaching. Patient remains on 2LNC and has no skin issues noted at this time. Will continue to monitor.
--- NOTE | 2021-02-10 07:31 | P.PN_ITS ---
Subjective Subjective: Interval history: remains swollen, feels better. no n/v/f/c/abarca/d. + legpain. Medications: Reviewed: Yes Medication Review Details: Current Medications Acetaminophen (Acetaminophen 325 Mg Tablet) 650 mg PO Q6H PRN PRN Reason: Mild/Mod Pain Or Temp >/= 101 Albuterol/Ipratropium (Ipratropium-Albuterol 3 Ml Neb) 3 ml INHALATION QID.RESPIRATORY YAW Budesonide (Budesonide 0.5 Mg/2 Ml Neb) 0.5 mg INHALATION BID.RESPIRATORY YAW Dextrose (Dextrose 50% Syringe 50 Ml) 25 ml IVP ONCE PRN; Protocol PRN Reason: hypoglycemia protocol Dextrose (Dextrose 50% Syringe 50 Ml) 50 ml IVP PRN PRN; Protocol PRN Reason: hypoglycemia protocol Folic Acid (Folic Acid 1 Mg Tablet) 1 mg PO DAILY YAW Glucagon (Glucagon 1 Mg/Ml Inj 1 Ml) 1 mg IM ONCE PRN; Protocol PRN Reason: Adult Acute Hypoglycemia Prot. Heparin Sodium (Porcine) (Heparin 5,000 Unit/Ml Inj 1 Ml) 5,000 unit SUBCUT Q12H [facility] Last Admin: 02/09/21 22:19 Dose: 5,000 unit Documented by: Dextrose ([email or web address]) 500 mls @ 100 mls/hr IV ONCE PRN; Protocol PRN Reason: Adult Acute Hypoglycemia Prot Piperacillin Sod/Tazobactam (Sod 3.375 gm/ Sodium Chloride) 50 mls @ 12.5 mls/hr IV Q8H YAW; Protocol Last Admin: 02/10/21 06:41 Dose: 12.5 mls/hr Documented by: Insulin Human Lispro (Insulin Lispro 100 Unit/1 Ml) 0 unit SUBCUT TIDWM YAW; Protocol Lorazepam (Lorazepam 2 Mg/Ml Inj 1 Ml) 2 mg IM Q4H PRN; Protocol PRN Reason: ALCOWD Lorazepam (Lorazepam 2 Mg/Ml Inj 1 Ml) 2 mg IVP PRN PRN; Protocol PRN Reason: WITHDRAWAL Lorazepam (Lorazepam 2 Mg Tablet) 2 mg PO Q4H PRN; Protocol PRN Reason: WITHDRAWAL Methylprednisolone Sodium Succinate (Methylprednisolone Sod Succ 40 Mg/Ml Inj) 40 mg IVP Q12H YAW Morphine Sulfate (Morphine 4 Mg/Ml Sdv 1 Ml) 1 mg IVP Q4H PRN PRN Reason: SEVERE PAIN Multivitamins Therapeutic (Multivitamin Therapeutic Tablet) 1 tab PO DAILY [facility] Ondansetron HCl (Ondansetron 2 Mg/Ml Sdv 2 Ml) 4 mg IVP Q6H PRN PRN Reason: NAUSEA AND VOMITING Pantoprazole Sodium (Pantoprazole Dr 40 Mg Tablet) 40 mg PO BID [facility] Thiamine Mononitrate (Thiamine 100 Mg Tablet) 100 mg PO DAILY [facility] Vitals/I&O/Wt Last Vital Signs Temp 97.6 F 02/10/21 04:00 Pulse 88 02/10/21 06:40 Resp 15 02/10/21 06:40 BP 131/78 02/10/21 06:40 Pulse Ox 96 02/10/21 06:40 02/09/21 02/10/21 02/10/21 22:59 06:59 14:59 Intake Total 450 / 450 Output Total 1250 / 1250 Balance -800 / -800 Weight last 48 hrs Weight 106.339 kg Weight 104.326 kg Physical Exam Narrative: EXAM NARRATIVE: obese, NARD vs noted heent-nc/at, eomi, anicteric neck supple lung dull bases b/l heart- CAMMIE, + s1, s2 abd distended, +BS + ascites ext 3+ b/l edema neuro- more awake and alert Urinary Catheter Management^: Valadez: Cath Placed During This Visit: yes Reason for Continuing Indwelling Catheter: Accurate Measurement of Urinary Output in Critically Ill Patients Urinary Catheter Date of Insertion: 02/09/21 Urinary Catheter Time of Insertion: 21:34 Data : 02/10/21 04:27 02/10/21 04:27 Micro: Microbiology 02/09/21 19:59 Blood Culture - Preliminary Blood SPECIMEN COLLECTED 02/09/21 19:50 Blood Culture - Preliminary Blood SPECIMEN COLLECTED A&P Additional A&P Information 75 yr old man w/ anasarca. 1. hyponatremia- likely from volume overload, ETOH, and water intake w/ lasix -rec- fluid restrict -normal tsh 4.9 -na slowly improving -cont diuretics and monitor chemistries- slowly normalize na -give salt tabs -check echo -f/u abd ct scan -getting steroids- less likely adrenal insufficiency -check tsh 2. cr 1.6- h/o ELZBIETA in past w/ cr 3.3/ not sure where baseline is. -cr now 1.5 mg/dl -monitor renal fxn -stable -check ua and urine lytes -renal imaging -u/a w/ 3+ prot and blood -recently saw urology for hematuria- serologies pending- send anca and anti-gbm -hep b core igM ab+ 3. normal hgb seen and examined w/ RN- telehealth visit time spent 30 minutes Attestations Medical Necessity Statement*: anasarca, hyponatremia Time Spent in Patient Care: 16 - 35 minutes (>than 50% of time spent in counselling and/or direct pt care on unit) . 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
[2021-02-10] MEDS: budesonide 0.5 mg/2 mL Neb INHALATION ×2 (07:47→19:45)
[2021-02-10] MEDS: ipratropium-albuterol 3 mL Neb INHALATION ×4 (07:47→19:45)
[2021-02-10 07:50] LABS: Glucose Point of Care 190 mg/dL (70-110)
[2021-02-10] MEDS: sodium chloride 1 gm Tablet PO ×3 (08:17→21:19)
[2021-02-10] MEDS: folic acid 1 mg Tablet PO (08:17)
[2021-02-10] MEDS: insulin lispro 100 unit/1 mL SUBCUT ×3 (08:17→17:22)
[2021-02-10] MEDS: thiamine 100 mg Tablet PO (08:17)
[2021-02-10] MEDS: FUROsemide 10 mg/mL SDV 4mL 40 MG IVP (08:17)
[2021-02-10] MEDS: multivitamin therapeutic Tablet 1 TAB PO (08:17)
[2021-02-10 09:53] LABS: Sodium 117 mmol/L (136-145)
[2021-02-10] MEDS: lactulose oral liq 20 gm/30 mL UDC PO ×2 (10:16→21:19)
[2021-02-10] MEDS: pantoprazole DR 40 mg Tablet PO ×2 (10:17→17:23)
[2021-02-10] MEDS: heparin 5,000 unit/mL INJ 1 mL 5000 UNIT SUBCUT ×2 (10:17→21:19)
[2021-02-10 11:58] LABS: Glucose Point of Care 200 mg/dL (70-110)
--- NOTE | 2021-02-10 13:01 | PC.NURSE ---
Patient friends/family brought in patient phone truer pinion and wheel and some clothes. Patient PUI and not allowed visitors.
--- NOTE | 2021-02-10 13:38 | PM.PN ---
Subjective Subjective: Interval history: Patient was seen this morning, he was able to ambulate to the side of the bed, he tells me that he tells me that he is not wheezing as much compared to yesterday, no fevers overnight, no chest pain, he tells me that his swelling has significantly improved, his abdomen does feel distended, but is not bothering him Vitals/I&O/Wt Last Vital Signs Temp 98.1 F 02/10/21 08:00 Pulse 76 02/10/21 12:00 Resp 17 02/10/21 12:00 BP 116/64 02/10/21 12:00 Pulse Ox 97 02/10/21 12:00 02/09/21 02/10/21 02/10/21 22:59 06:59 14:59 Intake Total 450 / 450 450 / 450 Output Total 1250 / 1250 250 / 250 Balance -800 / -800 200 / 200 Weight last 48 hrs Weight 106.339 kg Weight 104.326 kg Physical Exam Const: COMMON NORMALS: no acute distress and patient oriented x3 Resp: COMMON NORMALS: normal respiratory effort, No retractions and No use of accessory muscles AUSCULTATION: wheezes Cardio: COMMON NORMALS: regular rate, regular rhythm, S1 normal heart sound present and S2 normal heart sound present RATE: regular rate RHYTHM: regular rhythm HEART SOUNDS: S1 normal heart sound present and S2 normal heart sound present GI: COMMON NORMALS: Normal to inspection, nondistended, normoactive bowel sounds present, Soft to palpation and non-tender PALPATION: Yes Soft to palpation Extremity: NARRATIVE EXTREMITY EXAM: 2+ pitting edema bilaterally Neuro: COMMON NORMALS: patient oriented x3 Psych: COMMON NORMALS: mental status grossly normal Urinary Catheter Management^: Valadez: Cath Placed During This Visit: yes Reason for Continuing Indwelling Catheter: Accurate Measurement of Urinary Output in Critically Ill Patients Urinary Catheter Date of Insertion: 02/09/21 Urinary Catheter Time of Insertion: 21:34 Data : 02/10/21 04:27 02/10/21 09:10 Micro: Microbiology 02/09/21 19:59 Blood Culture - Preliminary Blood SPECIMEN COLLECTED 02/09/21 19:50 Blood Culture - Preliminary Blood SPECIMEN COLLECTED A&P Assessment and plan (1) Acute hyponatremia: -Likely multifactorial from beers Poto tariq, malnutrition, liver cirrhosis -No alarm symptoms and no headaches, no blurry vision, no nausea, no vomiting, no seizures -Serum sodium 118 -Monitor serum sodiums every 4 hours -Urine sodium studies, serum osmolality -Currently on Lasix 40 mg IV daily, with salt tablets -Paracentesis 4.7 L removed, will monitor serum sodiums carefully thereafter -Nephrology consulted -Full code -Heparin for DVT prophylaxis Plan for today will move out of ICU, monitor serum sodium levels, monitor mentation, continue antibiotics, continue steroids, continue Lasix, PT OT Status: Acute (2) Diastolic CHF: -Currently elevated BNP, evidence of fluid overload -Cardiac echocardiogram LV systolic function is normal with EF of 60-65% Diastolic function is normal Trace mitral regurgitation Trace tricuspid regurgitation Compared to prior echocardiogram from 09/23/2018, no significant changes are noted -Currently receiving Lasix 40 mg IV push daily -We will consider with albumin therapy based on sodium trend Status: Acute (3) Anasarca: -Related to hypoalbuminemia, diastolic CHF Status: Acute (4) Alcoholism: -Last alcohol drink was last night, 1 beer -[facility] protocol Status: Acute (5) Ascites: -Etiology of ascites is undetermined -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 -CT of the abdomen shows liver cirrhosis -Follow liver studies -Hold off on further paracentesis -Monitor paracentesis studies -Zosyn for possible SBP although unlikely Status: Acute (6) COPD exacerbation: -COPD and ILD exacerbation -Solu-Medrol 125 followed by 40 every 12 hours -DuoNeb treatment -Budesonide -Sputum cultures -MRSA PCR -Blood cultures -Monitor respiratory status -CT of the chest shows pulmonary fibrosis -Zosyn for possible pneumonia Status: Acute (7) Pulmonary fibrosis: Status: Acute (8) Acute kidney injury superimposed on CKD: -Secondary to third spacing, ascites -Continue to monitor Status: Acute Additional A&P Information -Type 2 diabetes mellitus, low-dose sliding scale, A1c - Attestations Medical Necessity Statement*: Patient requires hospitalization for acute hyponatremia, exacerbation of ILD COPD 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 [facility] Diagnoses Acute hyponatremia E87.1 Diastolic CHF I50.30 Anasarca R60.1 Alcoholism F10.20 Ascites R18.8 COPD exacerbation J44.1 Pulmonary fibrosis J84.10 Acute kidney injury superimposed on CKD N17.9; N18.9
[2021-02-10 13:43] LABS: Sodium 119 mmol/L (136-145)
[2021-02-10 15:31] LABS: Coronavirus Test Green County Not Detected
--- NOTE | 2021-02-10 16:13 | PC.NURSE ---
Sister notified of patient's status and negative Covid result. Patient now off of droplet/contact precautions and is allowed 2 visitors per day.
[2021-02-10 17:17] LABS: Glucose Point of Care 207 mg/dL (70-110)
[2021-02-10 17:45] LABS: Sodium 118 mmol/L (136-145)
--- NOTE | 2021-02-10 17:58 | PC.NURSE ---
Shift Note Frequent safety and comfort rounds continue. Orders and/or nursing care completed as indicated. Patient monitored for response to intervention and treatment(s). Education provided includes fluid restriction and decreased sodium levels. Patient and/or billing representative verbally responded to treatment(s). Will continue to monitor.
--- NOTE | 2021-02-10 21:07 | USCV_ITS ---
Den Bedolla Age: 75 Gender: M : 1945 Exam Date: 02/10/2021 07:29 Ordering Phys: Juan Fonseca MD Technologist: Kendra Vega Exam Location: [facility] [place] Indication: edema BP: 138 / 75 HR: 80 Rhythm: Sinus Technical Quality: Adequate MEASUREMENTS (Male / Female) Normal Values 2D ECHO LV Diastolic Diameter PLAX 5.3 cm 4.2 - 5.9 / 3.9 - 5.3 cm LV Systolic Diameter PLAX 3.5 cm IVS Diastolic Thickness 0.9 cm 0.6 - 1.0 / 0.6 - 0.9 cm IVS Systolic Thickness 2.0 cm LVPW Diastolic Thickness 1.6 cm 0.6 - 1.0 / 0.6 - 0.9 cm LVPW Systolic Thickness 2.1 cm LVOT Diameter 2.0 cm LV Ejection Fraction 2D Teich 61.5 % LV Ejection Fraction MOD 2C 67.3 % LV Ejection Fraction 2C AL 67.3 % LA Diameter 3.9 cm LA Width 3.5 cm LA Height 4.2 cm RA Width 2.8 cm RA Height 4.0 cm Aorta at Sinotubular Diameter 2.6 cm M-MODE Aortic Annulus Diameter 3.4 cm LA Ao Ratio MM 1.0 MV E Point Septal Separation 0.4 cm DOPPLER AV Peak Velocity 187.0 cm/s LVOT Peak Velocity 101.0 cm/s AV Area Cont Eq vti 1.9 cm squared AV Area Cont Eq pk 1.7 cm squared MV Peak Velocity 104.0 cm/s MV Area PHT 4.4 cm squared Mitral E to A Ratio 1.6 MV E' Velocity 60.5 cm/s Mitral E to MV E' Ratio 11.7 Mitral E to LV E' Lateral Ratio 10.0 Mitral E to LV E' Septal Ratio 14.1 TR Peak Velocity 266.9 cm/s TR Peak Gradient 28.5 mmHg TR Mean Velocity 216.8 cm/s TR Mean Gradient 20.8 mmHg TR Velocity Time Integral 65.0 cm TV Peak E Velocity 77.0 cm/s PV Peak Velocity 210.0 cm/s RV Acceleration Time 0.1 s RV Ejection Time 0.3 s RV AcT/ET 0.4 FINDINGS Left Ventricle Normal left ventricular size. LV systolic function is normal with EF of 60-65%. No regional wall motion abnormalities. Normal diastolic filling pattern. Right Ventricle The right ventricle is normal in size and function. Right Atrium The right atrium is normal in size. Left Atrium The left atrium is normal in size. Mitral Valve Structurally normal mitral valve without significant stenosis or prolapse. There is trace mitral regurgitation. Aortic Valve Aortic valve is thickened. No significant stenosis. There is no aortic regurgitation. Tricuspid Valve Structurally normal tricuspid valve without significant stenosis. Trace tricuspid regurgitation. Insufficient TR jet to calculate RVSP Pulmonic Valve Structurally normal pulmonic valve without significant stenosis. There is no pulmonic regurgitation. Pericardium Normal pericardium without effusion. Aorta Normal ascending aorta dimension. CONCLUSIONS LV systolic function is normal with EF of 60-65% Diastolic function is normal Trace mitral regurgitation Trace tricuspid regurgitation Compared to prior echocardiogram from 09/23/2018, no significant changes are noted Mario Clark MD (Electronically Signed) Final Date: 10 February 2021 08:45 S
[2021-02-10 21:11] LABS: Sodium 123 mmol/L (136-145)
--- NOTE | 2021-02-10 22:30 | PC.NURSE ---
Transfer Note Patient transferred to [facility] from ICU via bed. Handoff report given to PAMELA Pace. Patient oriented to environment and equipment. Covering service notified. Orders reviewed and will continue to monitor. Family and/or used equipment sales representative notified. Patient transferred on 2LNC, VSS. All belongings transferred with patient and placed in the closet/ at bedside.
--- NOTE | 2021-02-10 23:12 | PC.NURSE ---
New Orders Called Dr. Pelletier about patient sodium, he gave verbal orders to stop the salt tablet, increase fluid restriction to 1800 mls day, and hold morning Lasix until he examines the patient.
--- NOTE | 2021-02-10 23:57 | PC.NURSE ---
i reported low temp 97.4 to nurse
[2021-02-11] VITALS (10 sets, daily range): BP systolic 117–130; BP diastolic 64–75; PULSE 79–97; RESP 16–18; TEMP 36.3–36.8; O2SAT 96–99
[2021-02-11 01:35] LABS: Sodium 122 mmol/L (136-145)
[2021-02-11 06:07] LABS: Hematocrit 36.4 % (42.0-52.0); Hemoglobin 12.4 g/dL (11.7-16.6); Lymphocytes # 0.3 10^3/uL (0.8-4.8); Mean Corpuscular HGB Conc 34.1 g/dL (30.0-36.0); Mean Corpuscular Hemoglobin 31.5 pg (28.0-34.0); Mean Corpuscular Volume 92.4 fl (80-94); Mean Platelet Volume 9.9 fL (7.4-10.4); Monocytes # 0.3 10^3/uL (0.2-0.9); Monocytes % 2.5 %; Neutrophils # 11.82 10^3/uL (1.8-7.7); Neutrophils % 94.9 %; Nucleated Red Blood Cells % 0 %; Platelet Count 137 10^3/cmm (130-400); Red Blood Count 3.94 10^6/uL (4.1-5.3); Red Cell Distribution Width 13.8 % (12.1-15.1); White Blood Count 12.5 10^3/uL (4.0-10.0)
[2021-02-11 06:19] LABS: INR 1.25 (0.8-1.2)
[2021-02-11 06:30] LABS: Alanine Aminotransferase 18 U/L (0-41); Albumin Level 2.5 g/dL (3.5-5.2); Alkaline Phosphatase 118 IU/L (40-130); Anion Gap 15.5 (5-19); Aspartate Amino Transferase 45 U/L (0-40); Blood Urea Nitrogen 35 mg/dL (8-23); Calcium 7.8 mg/dL (8.5-10.5); Carbon Dioxide 22 mmol/L (22-29); Chloride 89 mmol/L (98-107); Globulin 3.3 g/dL (1.3-4.6); Glucose 150 mg/dL (65-115); Magnesium 2.5 mg/dL (1.7-2.3); Osmolality Calculated 267 mOsm/kg (285-295); Potassium 3.5 mmol/L (3.5-5.1); Sodium 123 mmol/L (136-145); Total Bilirubin 1.3 mg/dL (0.15-1.2); Total Protein 5.8 g/dL (6.6-8.7)
--- NOTE | 2021-02-11 07:46 | PM.PN ---
Subjective Subjective: Interval history: swollen, leaking from abdomen. less sob. no n/v/f/c/abarca/d. dec leg pain Medications: Reviewed: Yes Medication Review Details: Current Medications Acetaminophen (Acetaminophen 325 Mg Tablet) 650 mg PO Q6H PRN PRN Reason: Mild/Mod Pain Or Temp >/= 101 Albuterol/Ipratropium (Ipratropium-Albuterol 3 Ml Neb) 3 ml INHALATION QID.RESPIRATORY YAW Last Admin: 02/10/21 19:45 Dose: 3 ml Documented by: Budesonide (Budesonide 0.5 Mg/2 Ml Neb) 0.5 mg INHALATION BID.RESPIRATORY YAW Last Admin: 02/10/21 19:45 Dose: 0.5 mg Documented by: Dextrose (Dextrose 50% Syringe 50 Ml) 25 ml IVP ONCE PRN; Protocol PRN Reason: hypoglycemia protocol Dextrose (Dextrose 50% Syringe 50 Ml) 50 ml IVP PRN PRN; Protocol PRN Reason: hypoglycemia protocol Folic Acid (Folic Acid 1 Mg Tablet) 1 mg PO DAILY COUNTS INCLUDE 234 BEDS AT THE [facility] Last Admin: 02/10/21 08:17 Dose: 1 mg Documented by: Furosemide (Furosemide 10 Mg/Ml Sdv 4ml) 40 mg IVP Q24H YAW Last Admin: 02/10/21 08:17 Dose: 40 mg Documented by: Glucagon (Glucagon 1 Mg/Ml Inj 1 Ml) 1 mg IM ONCE PRN; Protocol PRN Reason: Adult Acute Hypoglycemia Prot. Heparin Sodium (Porcine) (Heparin 5,000 Unit/Ml Inj 1 Ml) 5,000 unit SUBCUT Q12H YAW Last Admin: 02/10/21 21:19 Dose: 5,000 unit Documented by: Dextrose (D5w) 500 mls @ 100 mls/hr IV ONCE PRN; Protocol PRN Reason: Adult Acute Hypoglycemia Prot Piperacillin Sod/Tazobactam (Sod 3.375 gm/ Sodium Chloride) 50 mls @ 12.5 mls/hr IV Q8H YAW; Protocol Last Infusion: 02/11/21 02:10 Dose: Infused Documented by: Insulin Human Lispro (Insulin Lispro 100 Unit/1 Ml) 0 unit SUBCUT TIDWM YAW; Protocol Last Admin: 02/10/21 17:22 Dose: 4 unit Documented by: Lactulose (Lactulose Oral Liq 20 Gm/30 Ml Udc) 20 gm PO Q12H YAW Last Admin: 02/10/21 21:19 Dose: 20 gm Documented by: Lorazepam (Lorazepam 2 Mg/Ml Inj 1 Ml) 2 mg IM Q4H PRN; Protocol PRN Reason: ALCOWD Lorazepam (Lorazepam 2 Mg/Ml Inj 1 Ml) 2 mg IVP PRN PRN; Protocol PRN Reason: WITHDRAWAL Lorazepam (Lorazepam 2 Mg Tablet) 2 mg PO Q4H PRN; Protocol PRN Reason: WITHDRAWAL Methylprednisolone Sodium Succinate (Methylprednisolone Sod Succ 40 Mg/Ml Inj) 40 mg IVP Q12H COUNTS INCLUDE 234 BEDS AT THE [facility] Last Admin: 02/10/21 21:19 Dose: 40 mg Documented by: Morphine Sulfate (Morphine 4 Mg/Ml Sdv 1 Ml) 1 mg IVP Q4H PRN PRN Reason: SEVERE PAIN Multivitamins Therapeutic (Multivitamin Therapeutic Tablet) 1 tab PO DAILY COUNTS INCLUDE 234 BEDS AT THE [facility] Last Admin: 02/10/21 08:17 Dose: 1 tab Documented by: Ondansetron HCl (Ondansetron 2 Mg/Ml Sdv 2 Ml) 4 mg IVP Q6H PRN PRN Reason: NAUSEA AND VOMITING Pantoprazole Sodium (Pantoprazole Dr 40 Mg Tablet) 40 mg PO BID COUNTS INCLUDE 234 BEDS AT THE [facility] Last Admin: 02/10/21 17:23 Dose: 40 mg Documented by: Thiamine Mononitrate (Thiamine 100 Mg Tablet) 100 mg PO DAILY COUNTS INCLUDE 234 BEDS AT THE [facility] Last Admin: 02/10/21 08:17 Dose: 100 mg Documented by: Vitals/I&O/Wt Last Vital Signs Temp 98.2 F 02/11/21 04:00 Pulse 79 02/11/21 04:00 Resp 18 02/11/21 04:00 BP 122/73 02/11/21 04:00 Pulse Ox 99 02/11/21 04:00 02/10/21 02/11/21 02/11/21 22:59 06:59 14:59 Intake Total 290 / 840 230 / 1070 Output Total 200 / 450 670 / 1120 Balance 90 / 390 -440 / -50 Weight last 48 hrs Weight 106.141 kg Weight 106.339 kg Weight 104.326 kg Physical Exam Narrative: EXAM NARRATIVE: obese, NARD vs noted heent-nc/at, eomi, anicteric neck supple lung dull bases b/l heart- CAMMIE, + s1, s2 abd distended, +BS + ascites ext 3+ b/l edema neuro- awake, aler, oriented x 3t Urinary Catheter Management^: Valadez: Cath Placed During This Visit: yes Reason for Continuing Indwelling Catheter: Accurate Measurement of Urinary Output in Critically Ill Patients Urinary Catheter Date of Insertion: 02/09/21 Urinary Catheter Time of Insertion: 21:34 Data : 02/11/21 05:21 02/11/21 05:21 Micro: Microbiology 02/09/21 19:50 Blood Culture - Preliminary Blood NEGATIVE TO DATE 02/09/21 19:59 Blood Culture - Preliminary Blood NEGATIVE TO DATE 02/09/21 19:40 MRSA Culture - Final Nose A&P Additional A&P Information 75 yr old man w/ anasarca. 1. hyponatremia- likely from volume overload, ETOH, and water intake w/ lasix -rec- fluid restrict -normal tsh 4.9 -na slowly improving -cont diuretics and monitor chemistries- slowly normalize na -normal echo -chest abd ct scan- 1. There is moderate pulmonary fibrosis. 2. Multiple, nonspecific, enlarged mediastinal lymph nodes, likely reactive. 3. Small hiatal hernia. 4. Small right pleural effusion. 5. Cirrhosis. 6. There is a small amount of ascites. 7. The sigmoid colon is mildly distended with gas and stool but no evidence of a volvulus. Findings may be seen in gastroenteritis. -getting steroids- less likely adrenal insufficiency - tsh 4.94- not cause of hyponatremia 2. cr 1.7- h/o ELZBIETA in past w/ cr 3.3/ not sure where baseline is. -cr now 1.5 mg/dl -monitor renal fxn -slowly rising w/ diuresis -low ur na -u/a w/ 3+ prot and blood -recently saw urology for hematuria- serologies pending- send anca and anti-gbm -hep b core igM ab+ -phos elevated at 5 3. normal hgb 4. cardiac echo- LV systolic function is normal with EF of 60-65% Diastolic function is normal Trace mitral regurgitation Trace tricuspid regurgitation Compared to prior echocardiogram from 09/23/2018, no significant changes are noted consider repeat paracentesis based on repeat abd us seen and examined w/ RN- telehealth visit time spent 30 minutes Attestations Medical Necessity Statement*: hyponatremia/ ascites/ anasarca Time Spent in Patient Care: 16 - 35 minutes (>than 50% of time spent in counselling and/or direct pt care on unit). 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
[2021-02-11] MEDS: ipratropium-albuterol 3 mL Neb INHALATION ×4 (08:09→20:12)
[2021-02-11] MEDS: budesonide 0.5 mg/2 mL Neb INHALATION ×2 (08:09→20:14)
--- NOTE | 2021-02-11 08:22 | PC.NURSE ---
notified Dr Fonseca that ultrasound called and said patient had a paracentesis in ER on 02/09/21 and he received heparin last night at 2118. she said if you want another paracentesis done today, I need to hold the am heparin. I am just checking with you to see if you want a paracentesis done again today.
[2021-02-11 09:07] LABS: Sodium 124 mmol/L (136-145)
[2021-02-11] MEDS: folic acid 1 mg Tablet PO (09:40)
[2021-02-11] MEDS: thiamine 100 mg Tablet PO (09:40)
[2021-02-11] MEDS: pantoprazole DR 40 mg Tablet PO ×2 (09:40→17:45)
[2021-02-11] MEDS: multivitamin therapeutic Tablet 1 TAB PO (09:40)
[2021-02-11] MEDS: insulin lispro 100 unit/1 mL SUBCUT ×3 (09:41→18:02)
--- NOTE | 2021-02-11 09:41 | PC.NURSE ---
notified Dr Pelletier that sodium is 124 and verified to start lasix BID now.
[2021-02-11] MEDS: piperacillin-tazobactam 3.375 GM in sodium chloride 0.9% (plus) 50 ML IV ×3 (09:43→23:49)
[2021-02-11 09:46] LABS: Glucose Point of Care 151 mg/dL (70-110)
--- NOTE | 2021-02-11 09:46 | PC.NURSE ---
Per Dr Fonseca, no paracentsis today and remove phillips catheter.
[2021-02-11] MEDS: FUROsemide 10 mg/mL SDV 4mL 40 MG IVP ×2 (10:07→17:45)
[2021-02-11] MEDS: heparin 5,000 unit/mL INJ 1 mL 5000 UNIT SUBCUT ×2 (10:25→20:35)
--- NOTE | 2021-02-11 11:16 | PC.NURSE ---
rcvd verbal order to discontinue isolation order from Dr Fonseca
--- NOTE | 2021-02-11 12:15 | PC.NURSE ---
notified Dr Fonseca that family is asking to talk to you. they want to know when a paracentesis is going to be done and if he is sent home will they do it outpatient
[2021-02-11 12:20] LABS: Glucose Point of Care 142 mg/dL (70-110)
[2021-02-11 13:58] LABS: COMPLEMENT, TOTAL (CH50) 32 U/mL (31-60)
--- NOTE | 2021-02-11 14:53 | P.PN_ITS ---
Subjective Subjective: Interval history: Patient was seen this morning, he tells me that he slept well last night, no abdominal pain, he tells me that his abdomen does not bother him, the distention does not bother him, and no lightheadedness, no dizziness, no fevers, no headache, no blurry vision Vitals/I&O/Wt Last Vital Signs Temp 97.4 F L 02/11/21 12:00 Pulse 89 02/11/21 12:00 Resp 18 02/11/21 12:00 BP 130/73 02/11/21 12:00 Pulse Ox 97 02/11/21 12:00 02/10/21 02/11/21 02/11/21 22:59 06:59 14:59 Intake Total 290 / 840 230 / 1070 920 / 920 Output Total 200 / 450 670 / 1120 300 / 300 Balance 90 / 390 -440 / -50 620 / 620 Weight last 48 hrs Weight 106.141 kg Weight 106.339 kg Physical Exam Const: COMMON NORMALS: no acute distress and patient oriented x3 Resp: COMMON NORMALS: normal respiratory effort, No retractions, No use of accessory muscles and clear to auscultation bilaterally AUSCULTATION: clear to auscultation bilaterally Cardio: COMMON NORMALS: regular rate, regular rhythm, S1 normal heart sound present and S2 normal heart sound present RATE: regular rate RHYTHM: regular rhythm HEART SOUNDS: S1 normal heart sound present and S2 normal heart sound present GI: COMMON NORMALS: Normal to inspection, nondistended, normoactive bowel sounds present and non-tender INSPECTION: Yes abdominal distension PALPATION: Yes Ascites present OTHER: Paracentesis site, slight drainage, bandage in place Neuro: COMMON NORMALS: patient oriented x3 Psych: COMMON NORMALS: mental status grossly normal Skin: NARRATIVE SKIN EXAM: 1+ pitting edema bilateral lower extremities Urinary Catheter Management^: Valadez: Cath Placed During This Visit: yes Reason for Continuing Indwelling Catheter: Accurate Measurement of Urinary Output in Critically Ill Patients Urinary Catheter Date of Insertion: 02/09/21 Urinary Catheter Time of Insertion: 21:34 Data : 02/11/21 05:21 02/11/21 08:20 Micro: Microbiology 02/10/21 12:22 Gram Stain - Final Sputum - Expectorated Sputum Sputum Culture - Preliminary 02/09/21 19:40 Urine Culture - Preliminary Urine,Clean Catch Gram Negative Rods 02/09/21 19:50 Blood Culture - Preliminary Blood NEGATIVE TO DATE 02/09/21 19:59 Blood Culture - Preliminary Blood NEGATIVE TO DATE 02/09/21 19:40 MRSA Culture - Final Nose A&P Assessment and plan (1) Acute hyponatremia: -Likely multifactorial from beers Poto tariq, malnutrition, liver cirrhosis -No alarm symptoms and no headaches, no blurry vision, no nausea, no vomiting, no seizures -Serum sodium 124 -Monitor serum sodiums every 4 hours -Currently on Lasix 40 mg IV twice daily, creatinine up to 1.7 will consider adding spironolactone -Paracentesis 4.7 L removed, -Nephrology consulted -Full code -Heparin for DVT prophylaxis Plan for today continue PT OT, continue Lasix, monitor abdominal distention, monitor for alcohol withdrawal, continue antibiotics Status: Acute (2) Diastolic CHF: -Currently elevated BNP, evidence of fluid overload -Cardiac echocardiogram LV systolic function is normal with EF of 60-65% Diastolic function is normal Trace mitral regurgitation Trace tricuspid regurgitation Compared to prior echocardiogram from 09/23/2018, no significant changes are noted -Currently receiving Lasix 40 mg IV twice daily, will consider adding spironolactone -We will consider with albumin therapy based on sodium trend Status: Acute (3) Anasarca: -Related to hypoalbuminemia, diastolic CHF Status: Acute (4) Alcoholism: -Last alcohol drink was last night, 1 beer -[facility] protocol Status: Acute (5) Ascites: -Etiology of ascites is likely related to alcoholic liver cirrhosiss -CT of the abdomen shows liver cirrhosis -Follow liver studies -Hold off on further paracentesis until abdominal distention bothers him -We will need outpatient follow-up with gastroenterology -Overtly paracentesis studies could not be sent off, will send off on next tap -Zosyn for possible SBP although unlikely Status: Acute (6) COPD exacerbation: -COPD and ILD exacerbation -Solu-Medrol 125 followed by 40 every 12 hours -DuoNeb treatment -Budesonide -Sputum cultures -MRSA PCR -Blood cultures -Monitor respiratory status -CT of the chest shows pulmonary fibrosis -Zosyn for possible pneumonia Status: Acute (7) Pulmonary fibrosis: Status: Acute (8) Acute kidney injury superimposed on CKD: -Secondary to third spacing, ascites -Continue to monitor Status: Acute Additional A&P Information -Type 2 diabetes mellitus, low-dose sliding scale, A1c 4.6 - Attestations Medical Necessity Statement*: Patient requires hospitalization for acute hyponatremia, ascites, liver cirrhosis, 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
[2021-02-11 15:00] LABS: Sodium 124 mmol/L (136-145)
--- NOTE | 2021-02-11 15:30 | PC.NURSE ---
updated patient's sister, Asaf Díaz, on patient
--- NOTE | 2021-02-11 15:35 | PC.NURSE ---
notified Dr Pelletier that patient's Sodium for [address] Hernandez, put order in for Q8H instead of Q6H. Apiculturist put order in for next Sodium check.
[2021-02-11 16:19] LABS: COMPLEMENT COMPONENT C3C 70 mg/dL (82-185); COMPLEMENT COMPONENT C4C 18 mg/dL (15-53)
[2021-02-11 16:57] LABS: Creatinine, Random Urine 55 mg/dL (20-320); Protein, Total, Random 930 mg/dL (5-25); Protein/Creatinine Ratio 16.909 (0.022-0.128); Protein/Creatinine Ratio 16909 mg/g creat (22-128)
[2021-02-11] MEDS: lactulose oral liq 20 gm/30 mL UDC PO (20:35)
[2021-02-11 22:32] LABS: Sodium 126 mmol/L (136-145)
[2021-02-12] VITALS: BP 125/79; PULSE 79; PULSE 83; RESP 18; TEMP 36.8; O2SAT 99
[2021-02-12] MEDS: benzonatate 100 mg Capsule PO (02:09)
[2021-02-12 04:00] VITALS: BP 135/72; PULSE 82; RESP 16; TEMP 36.5; O2SAT 99
[2021-02-12 06:20] LABS: Basophils % 0.1 %; Hematocrit 36.8 % (42.0-52.0); Hemoglobin 12.6 g/dL (11.7-16.6); Lymphocytes # 0.4 10^3/uL (0.8-4.8); Lymphocytes % 3.4 %; Mean Corpuscular HGB Conc 34.2 g/dL (30.0-36.0); Mean Corpuscular Hemoglobin 31.9 pg (28.0-34.0); Mean Corpuscular Volume 93.2 fl (80-94); Monocytes % 8.3 %; Neutrophils # 10.72 10^3/uL (1.8-7.7); Neutrophils % 87.5 %; Nucleated Red Blood Cells % 0 %; Platelet Count 145 10^3/cmm (130-400); Red Blood Count 3.95 10^6/uL (4.1-5.3); Red Cell Distribution Width 14.2 % (12.1-15.1); White Blood Count 12.2 10^3/uL (4.0-10.0)
[2021-02-12 06:35] LABS: INR 1.19 (0.8-1.2)
[2021-02-12 06:44] LABS: Alanine Aminotransferase 24 U/L (0-41); Albumin Level 2.7 g/dL (3.5-5.2); Alkaline Phosphatase 124 IU/L (40-130); Anion Gap 16.1 (5-19); Aspartate Amino Transferase 47 U/L (0-40); Blood Urea Nitrogen 39 mg/dL (8-23); Calcium 7.7 mg/dL (8.5-10.5); Carbon Dioxide 22 mmol/L (22-29); Chloride 92 mmol/L (98-107); Globulin 3.3 g/dL (1.3-4.6); Glucose 161 mg/dL (65-115); Magnesium 2.4 mg/dL (1.7-2.3); Osmolality Calculated 277 mOsm/kg (285-295); Phosphorus 4.4 mg/dL (2.5-4.5); Potassium 3.1 mmol/L (3.5-5.1); Sodium 127 mmol/L (136-145); Total Bilirubin 1.2 mg/dL (0.15-1.2)
[2021-02-12 06:50] LABS: Creatinine Clr Calc Pharmacy 44.3312
[2021-02-12 07:21] VITALS: BP 132/74; PULSE 83; RESP 16; TEMP 36.3; O2SAT 100
[2021-02-12] MEDS: budesonide 0.5 mg/2 mL Neb INHALATION (08:34)
[2021-02-12] MEDS: ipratropium-albuterol 3 mL Neb INHALATION ×2 (08:34→14:30)
[2021-02-12 08:35] VITALS: PULSE 84; RESP 18; O2SAT 98
[2021-02-12 09:03] LABS: Osmolality Urine 169 mOsm/kg (50-1200)
[2021-02-12] MEDS: FUROsemide 10 mg/mL SDV 4mL 40 MG IVP (09:22)
[2021-02-12] MEDS: folic acid 1 mg Tablet PO (09:23)
[2021-02-12] MEDS: predniSONE 20 mg Tablet 40 MG PO (09:23)
[2021-02-12] MEDS: multivitamin therapeutic Tablet 1 TAB PO (09:23)
[2021-02-12] MEDS: pantoprazole DR 40 mg Tablet PO (09:23)
[2021-02-12] MEDS: thiamine 100 mg Tablet PO (09:23)
[2021-02-12] MEDS: piperacillin-tazobactam 3.375 GM in sodium chloride 0.9% (plus) 50 ML IV (09:23)
[2021-02-12] MEDS: lactulose oral liq 20 gm/30 mL UDC PO (09:23)
--- NOTE | 2021-02-12 09:55 | P.PN_ITS ---
Subjective Subjective: Interval history: Den feels significantly improved today. No acute issues. He still has some lower extremity edema. Eating and drinking normally. Passing urine normally. Mild ascites. No shortness of breath. Vitals/I&O/Wt Last Vital Signs Temp 97.4 F L 02/12/21 07:21 Pulse 84 02/12/21 08:35 Resp 18 02/12/21 08:35 BP 132/74 02/12/21 07:21 Pulse Ox 98 02/12/21 08:35 02/11/21 02/12/21 02/12/21 22:59 06:59 14:59 Intake Total 340 / 1260 50 / 1310 480 / 480 Balance 340 / 960 50 / 1010 480 / 480 Weight last 48 hrs Weight 105.823 kg Weight 106.141 kg Physical Exam Narrative: EXAM NARRATIVE: Constitutional: Awake, comfortable HEENT: Wet mucosa, no jvp, non icteric Lungs: Bilaterally clear without discernible wheeze, rales in all lung zones CVS: S1 S2, no murmurs Abdo: Soft, BS ok Ext 4: 2-3+ edema, peripheral perfusion with no cyanosis Neurological: Grossly non-focal Urinary Catheter Management^: Valadez: Cath Placed During This Visit: yes, but has since been removed by the nurse Reason for Continuing Indwelling Catheter: Decision to DC Catheter Urinary Catheter Date of Insertion: 02/09/21 Urinary Catheter Time of Insertion: 21:34 Date Urinary Catheter Removed: 02/11/21 Time Urinary Catheter Discontinued: 10:30 Data : 02/12/21 06:00 02/12/21 06:00 Micro: Microbiology 02/10/21 12:22 Gram Stain - Final Sputum - Expectorated Sputum Sputum Culture - Final 02/09/21 19:40 Urine Culture - Preliminary Urine,Clean Catch Gram Negative Rods A&P Additional A&P Information 1. Chronic kidney disease Renal function has remained relatively stable over the last few days, this may well be his baseline. Of note his significantly elevated urinary protein levels consistent with nephrotic syndrome. 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 SPEP pending and I will send kappa/lambda levels. He will need to have a bone marrow or kidney biopsy depending upon the results of the SPEP. This may be done as an outpatient i.e. by Dr. Oropeza in the local clinic. Avoid usual nephrotoxins Okay to continue diuretics 2. Hyponatremia Hypervolemic hyponatremia, of note contributing factors includes fluid overload i.e. from nephrotic syndrome, alcohol use with beer potomania physiology. Sodium levels now improving nicely, continue diuretic therapy. 3. HypoK replacement ordered Okay for discharge today, I have encouraged him to have follow-up from Dr. Oropeza in the next week or two. 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
[2021-02-12 10:36] LABS: Glucose Point of Care 200 mg/dL (70-110)
[2021-02-12 10:37] LABS: Glucose Point of Care 150 mg/dL (70-110)
[2021-02-12 10:37] LABS: Glucose Point of Care 195 mg/dL (70-110)
[2021-02-12] MEDS: heparin 5,000 unit/mL INJ 1 mL 5000 UNIT SUBCUT (11:04)
[2021-02-12] MEDS: potassium chloride ER 20 mEq Tablet 40 MEQ PO ×2 (11:04)
[2021-02-12] MEDS: spironolactone 25 mg Tablet PO (11:04)
[2021-02-12 11:26] LABS: Glucose Point of Care 154 mg/dL (70-110)
[2021-02-12 11:55] VITALS: BP 136/75; PULSE 69; RESP 16; TEMP 36.9; O2SAT 96
[2021-02-12] MEDS: insulin lispro 100 unit/1 mL SUBCUT (13:14)
--- NOTE | 2021-02-12 13:32 | PM.DCS ---
Discharge Providers Date of Admission: 02/09/21 17:26 Date of Discharge: February 12, 2021 Attending Provider at Admission: Juan Fonseca MD Attending Provider at Discharge: Juan Fonseca MD Primary Care Provider: Cristo Mccormick DO Diagnoses at Discharge Discharge Diagnosis (1) Acute hyponatremia: Status: Acute (2) Diastolic CHF: Status: Acute (3) Anasarca: Status: Acute (4) Alcoholism: Status: Acute (5) Ascites: Status: Acute (6) COPD exacerbation: Status: Acute (7) Pulmonary fibrosis: Status: Acute (8) Acute kidney injury superimposed on CKD: Status: Acute Reason for Visit Reason for Visit: SOB, CHF Hospital Course Hospital Course Den Bedolla is a 75 year old male with a past medical history of interstitial lung disease/pulmonary fibrosis, COPD, current smoker, noninsulin-dependent type 2 diabetes mellitus, history of alcoholism, history of fluid overload, history of diastolic CHF, history of chronic kidney disease, history of hyponatremia, history of normocytic anemia, who presents to [facility] due to wheezing, shortness of breath, cough, abdominal distention. Patient was admitted to [facility] for acute hyponatremia, multifactorial from beers [place] tariq, malnutrition, liver cirrhosis, possible nephrotic syndrome. No alarm symptoms, received Lasix therapy, paracentesis, serum sodiums improved, serum sodium at discharge 127. Patient was advised to abstain from alcohol consumption on discharge. 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 If he develops worsening abdominal/abdominal pain, come through outpatient GI Lab for paracentesis. Patient was advised to abstain from alcohol consumption. Referral was sent to gastroenterology in [place] for consideration of liver biopsy. Patient also had a COPD ILD exacerbation as inpatient, received steroid therapy, inhaler therapy, clinical improved, discharged on a prednisone burst Patient was also found to have evidence of nephrotic syndrome during his hospitalization, has a history of CKD, ELZBIETA on CKD, elevated urinary protein levels, concerning for possible monoclonal, gammopathy SPEP kappa lambda levels pending. Patient has been referred to Dr. Oropeza for kidney biopsy. Physical Exam Const: COMMON NORMALS: no acute distress and patient oriented x3 Resp: COMMON NORMALS: normal respiratory effort, No retractions, No use of accessory muscles and clear to auscultation bilaterally AUSCULTATION: clear to auscultation bilaterally Cardio: COMMON NORMALS: regular rate, regular rhythm, S1 normal heart sound present and S2 normal heart sound present RATE: regular rate RHYTHM: regular rhythm HEART SOUNDS: S1 normal heart sound present and S2 normal heart sound present GI: COMMON NORMALS: Normal to inspection, nondistended, normoactive bowel sounds present, Soft to palpation and non-tender PALPATION: Yes Soft to palpation Extremity: COMMON NORMALS: no pedal edema Neuro: COMMON NORMALS: patient oriented x3 Psych: COMMON NORMALS: mental status grossly normal Urinary Catheter Management^: Valadez: Cath Placed During This Visit: yes, but has since been removed by the nurse Reason for Continuing Indwelling Catheter: Decision to DC Catheter Urinary Catheter Date of Insertion: 02/09/21 Urinary Catheter Time of Insertion: 21:34 Date Urinary Catheter Removed: 02/11/21 Time Urinary Catheter Discontinued: 10:30 Discharge Data Data Completed and Pending: Completed Studies During Hospitalization Category Date Time Status CT chest abd pel wo con Urgent Cat Scan 02/09/21 21:07 Completed XR chest 1V enio ble [id number] Stat Exams 02/09/21 12:55 Completed CV. echo complete * [id number] Routine Ultrasound 02/10/21 21:07 Com[place]acent[place] bd w [id number] Stat Ultrasound 02/09/21 13:12 Completed Pending at discharge Category Date Time Status [place] Profile Rheum atology Stat Lab 02/09/21 19:59 Results Anti-Neutrophil C ytoplasmic AB Rout ine Lab 02/10/21 09:10 Received Blood Culture Sta t Lab 02/09/21 19:59 Results Complete Blood Co unt w/Auto AM LABS Lab 02/13/21 04:00 Ordered Glomerular Baseme nt AB IGG Routine Lab 02/10/21 09:10 Received KAPPA/LAMBDA LIGH T FREE SERUM Stat Lab 02/12/21 10:35 Received Osmolality Serum Stat Lab 02/09/21 19:59 Received Urine Protein Germaine ctrop Random Routi ne Lab 02/09/21 19:40 Results Vitamin D 1,25 Di hydroxy Routine Lab 02/09/21 19:59 Received Labs from last 24 hours 02/12/21 02/12/21 02/12/21 11:06 10:35 06:41 WBC RBC Hgb Hct MCV MCH MCHC RDW Plt Count MPV Neut % (Auto) Lymph % (Auto) [place] % (Auto) Eos % (Auto) Baso % (Auto) Neut # (Auto) Lymph # (Auto) [place] # (Auto) Eos # (Auto) Baso # (Auto) Nucleated RBC % (a uto) Nucleated RBCs # PT INR Sodium Potassium Chloride Carbon Dioxide Anion Gap BUN Creatinine GFR Calculation Glucose POC Glucose 154 H 195 H Calculated Osmolal ity Calcium Phosphorus Magnesium Total Bilirubin AST ALT Alkaline Phosphata se Total Protein Albumin Globulin Urine Osmolality Ur Random Creatini ne U Random Total Pro tein Protein/Creatinin Ratio Protein/Creat Rati o 24h Complement C3c Complement C4c CH50 Classical Pat [place]way Free [place] Light C hains Pending Free Lambda Light Chain Pending Free [place]/Lambda Ratio Pending 02/12/21 02/12/21 02/12/21 06:00 06:00 06:00 WBC 12.2 H RBC 3.95 L Hgb 12.6 Hct 36.8 L MCV 93.2 MCH 31.9 MCHC 34.2 RDW 14.2 Plt Count 145 MPV 10.0 Neut % (Auto) 87.5 Lymph % (Auto) 3.4 [place] % (Auto) 8.3 Eos % (Auto) 0.0 Baso % (Auto) 0.1 Neut # (Auto) 10.72 H Lymph # (Auto) 0.4 L [place] # (Auto) 1.0 H Eos # (Auto) 0.0 Baso # (Auto) 0.0 Nucleated RBC % (a uto) 0 Nucleated RBCs # 0.0 PT 15.40 H INR 1.19 Sodium 127 L Potassium 3.1 L Chloride 92 L Carbon Dioxide 22 Anion Gap 16.1 BUN 39 H Creatinine 1.7 H GFR Calculation Not Reportable Glucose 161 H POC Glucose Calculated Osmolal ity 277 L Calcium 7.7 L Phosphorus 4.4 Magnesium 2.4 H Total Bilirubin 1.2 AST 47 H ALT 24 Alkaline Phosphata se 124 Total Protein 6.0 L Albumin 2.7 L Globulin 3.3 Urine Osmolality Ur Random Creatini ne U Random Total Pro tein Protein/Creatinin Ratio Protein/Creat Rati o 24h Complement C3c Complement C4c CH50 Classical [place] Light C hains Free Lambda Light Chain Free [place]/Lambda Ratio 02/11/21 02/11/21 02/11/21 22:03 22:00 17:54 WBC RBC Hgb Hct MCV MCH MCHC RDW Plt Count MPV Neut % (Auto) Lymph % (Auto) [place] % (Auto) Eos % (Auto) Baso % (Auto) Neut # (Auto) Lymph # (Auto) [place] # (Auto) Eos # (Auto) Baso # (Auto) Nucleated RBC % (a uto) Nucleated RBCs # PT INR Sodium 126 L Potassium Chloride Carbon Dioxide Anion Gap BUN Creatinine GFR Calculation Glucose POC Glucose 150 H 200 H Calculated Osmolal ity Calcium Phosphorus Magnesium Total Bilirubin AST ALT Alkaline Phosphata se Total Protein Albumin Globulin Urine Osmolality Ur Random Creatini ne U Random Total Pro tein Protein/Creatinin Ratio Protein/Creat Rati o 24h Complement C3c Complement C4c CH50 Classical [place] Light C hains Free Lambda Light Chain Free [place]/Lambda Ratio 02/11/21 02/09/21 02/09/21 14:10 19:59 19:40 WBC RBC Hgb Hct MCV MCH MCHC RDW Plt Count MPV Neut % (Auto) Lymph % (Auto) [place] % (Auto) Eos % (Auto) Baso % (Auto) Neut # (Auto) Lymph # (Auto) [place] # (Auto) Eos # (Auto) Baso # (Auto) Nucleated RBC % (a uto) Nucleated RBCs # PT INR Sodium 124 L Potassium Chloride Carbon Dioxide Anion Gap BUN Creatinine GFR Calculation Glucose POC Glucose Calculated Osmolal ity Calcium Phosphorus Magnesium Total Bilirubin AST ALT Alkaline Phosphata se Total Protein Albumin Globulin Urine Osmolality Ur Random Creatini ne 55 U Random Total Pro tein 930 H Protein/Creatinin Ratio 73177 H Protein/Creat Rati o 24h 16.909 H Complement C3c 70 L Complement C4c 18 CH[address] Free [place] Light C hains Free Lambda Light Chain [place]/Lambda Ratio 02/09/21 19:40 WBC RBC Hgb Hct MCV MCH MCHC RDW Plt Count MPV Neut % (Auto) Lymph % (Auto) [place] % (Auto) Eos % (Auto) Baso % (Auto) Neut # (Auto) Lymph # (Auto) [place] # (Auto) Eos # (Auto) Baso # (Auto) Nucleated RBC % (a uto) Nucleated RBCs # PT INR Sodium Potassium Chloride Carbon Dioxide Anion Gap BUN Creatinine GFR Calculation Glucose POC Glucose Calculated Osmolal ity Calcium Phosphorus Magnesium Total Bilirubin AST ALT Alkaline Phosphata se Total Protein Albumin Globulin Urine Osmolality 169 Ur Random Creatini ne U Random Total Pro tein Protein/Creatinin Ratio Protein/Creat Rati o 24h Complement C3c Complement C4c CH50 Classical [place] Light C [place] Free Lambda Light Chain [place]/Lambda Ratio Vitals: Last Vital Signs Temp 98.4 F 02/12/21 11:55 Pulse 69 02/12/21 11:55 Resp 16 02/12/21 11:55 BP 136/75 02/12/21 11:55 Pulse Ox 96 02/12/21 11:55 Discharge Plan Discharge Patient Disposition: Home Condition: Stable Prescriptions: New folic acid 1 mg Tablet 1 mg PO DAILY 30 Days Qty: 30 RF: 0 furosemide 40 mg Tablet 40 mg PO Q12H 30 Days Qty: 60 RF: 0 lactulose 20 gram/30 mL Solution 20 g PO DAILY 30 Days Qty: 1200 RF: 0 prednisone 20 mg Tablet 40 mg PO DAILY 5 Days Qty: 10 RF: 0 Vitamin B-1 (mononitrate) 100 mg Tablet 100 mg PO DAILY 30 Days Qty: 30 RF: 0 Thera 400 mcg Tablet 1 tab PO DAILY 30 Days Qty: 30 RF: 0 spironolactone 25 mg Tablet 25 mg PO DAILY 30 Days Qty: 30 RF: 0 pantoprazole 40 mg Tablet,Delayed Release (Dr/Ec) 40 mg PO DAILY 30 Days Qty: 30 RF: 0 Continued mupirocin 2 % ointment 1 applic TOPICAL BID PRN (Reason: Rash) RF: 0 albuterol sulfate 90 mcg/actuation HFA aerosol inhaler 2 puff INHALATION Q4H PRN (Reason: Shortness Of Breath) RF: 0 polyethylene glycol 3350 [Miralax] 17 gram/dose powder 17 g PO DAILY PRN (Reason: Constipation) RF: 0 multivitamin Tablet 1 tab PO DAILY RF: 0 Changed Januvia 100 mg tablet 50 mg PO QAM Qty: 0 RF: 0 Discontinued sildenafil [Viagra] 50 mg Tablet 50 mg PO PRN PRN (Reason: Erectile Dysfunction) RF: 0 potassium chloride 10 mEq tablet extended release 10 meq PO DAILY PRN (Reason: takes with lasix) RF: 0 furosemide 20 mg tablet 20 mg PO DAILY PRN (Reason: Edema) RF: 0 No Action (DME) CAM WALKER Qty: 1 RF: 0 Discharge Orders: Discharge Order (Routine); Ordered 02/12/21 Ordered By: Juan Fonseca Other Ambulatory Orders: US paracentesis abd w [id number] (PRN) Timeframe: [id number] Facility: [facility] - Location: Radiology Ordered By: Juan Marian US paracentesis abd w [id number] (PRN) Timeframe: [id number] Facility: [facility] - Location: Radiology Ordered By: Juan Marian US paracentesis abd w [id number] (PRN) Timeframe: [id number] Facility: [facility] - Location: Radiology Ordered By: Juan Marian US paracentesis abd w [id number] (PRN) Timeframe: [id number] Facility: [facility] - Location: Radiology Ordered By: Juan Marian US paracentesis abd w [id number] (PRN) Timeframe: [id number] Facility: [facility] - Location: Radiology Ordered By: Juan Marian US paracentesis abd w [id number] (PRN) Timeframe: [id number] Facility: [facility] - Location: Radiology Ordered By: Juan Marian US paracentesis abd w [id number] (PRN) Timeframe: [id number] Facility: [facility] - Location: Radiology Ordered By: Juan Marian US paracentesis abd w [id number] (PRN) Timeframe: [id number] Facility: [facility] - Location: Radiology Ordered By: Juan Marian US paracentesis abd w [id number] (PRN) Timeframe: [id number] Facility: [facility] - Location: Radiology Ordered By: Juan Marian US paracentesis abd w [id number] (PRN) Timeframe: [id number] Facility: [facility] - Location: Radiology Ordered By: Juan Marian Referrals: [facility] [Outside] Cristo Mccormick DO [Primary Care Provider] - 02/18/21 11:00 am Kameron Oropeza MD [Referring] - 1 week (nephrotic syndrome, kidney biopsy) Mitul Lala MD [Referring] - 2 weeks (alcoholic liver cirrhosis) Discharge Diet: Cardiac Discharge Activity: Resume usual activity Patient Instructions: Spironolactone (By mouth), Furosemide (By mouth), Prednisone (By mouth), Lactulose (By mouth), Pantoprazole (By mouth), Paracentesis (GEN), Opioid Safety Activity Restrictions/Additional Instructions: -Please take Lasix and spironolactone as prescribed -Please follow-up with Dr. Oropeza in 1 week -Please follow-up with hepatology, gastroenterology in 1 week -If you develop abdominal distention, please come through outpatient lab for paracentesis -If you develop fevers, abdominal distention, abdominal pain come back to emergency room -If you develop bloody stools or bloody vomit go to emergency room -If you have episodes of increased confusion please come back to emergency room Discharge Attestations Time Spent in Discharge Care*: less than 30 min Quality Metrics Clinical Quality Measures During this hospital stay, did patient experience: None Coding Level of Care Code Acute g [facility] note Diagnoses Acute hyponatremia E87.1 Diastolic CHF I50.30 Anasarca R60.1 Alcoholism F10.20 Ascites R18.8 COPD exacerbation J44.1 Pulmonary fibrosis J84.10 Acute kidney injury superimposed on CKD N17.9; N18.9
--- NOTE | 2021-02-12 13:54 | PC.SOCIAL ---
IMM Update: pg 2 of IMM updated and reviewed w/ patient. Copy provided.
--- NOTE | 2021-02-12 15:15 | PC.OT ---
OT treatment not attempted due to scheduled patient discharge this date.
[2021-02-12 15:20] VITALS: BP 136/75; PULSE 69; RESP 16; TEMP 36.9; O2SAT 96
[2021-02-12 16:28] LABS: CENTROMERE B ANTIBODY <1.0 NEG AI (<1.0 NEG); JO-1 ANTIBODY <1.0 NEG AI (<1.0 NEG); RNP ANTIBODY <1.0 NEG AI (<1.0 NEG); SCL-70 ANTIBODY <1.0 NEG AI (<1.0 NEG); SJOGREN'S ANTIBODY (SS-A) <1.0 NEG AI (<1.0 NEG); SM ANTIBODY <1.0 NEG AI (<1.0 NEG); SS-B <1.0 NEG AI (<1.0 NEG)
[2021-02-12 16:53] LABS: Albumin,Urine Random 51 %; Alpha-1-Globulins Urine Random 4 %; Alpha-2-Globulins Urine Random 8 %; Beta-Globulin,Urine Random 16 %; Gamma Globulin,Urine Random 20 %
[2021-02-12 17:17] LABS: THYROID PEROXIDASE ANTIBODIES <1 IU/mL (<9)
[2021-02-13 14:33] LABS: KAPPA LIGHT CHAIN, FREE, SERUM 123.9 mg/L (3.3-19.4); KAPPA/LAMBDA LIGHT CHAINS FREE 1.47 (0.26-1.65); LAMBDA LIGHT CHAIN, FREE, SERU 84.1 mg/L (5.7-26.3)
[2021-02-13 16:39] LABS: ANA SCREEN, IFA NEGATIVE (NEGATIVE)
[2021-02-13 18:13] LABS: ANCA Screen NEGATIVE (NEGATIVE)
[2021-02-14 01:48] LABS: Glomerular Bsmt Membrane IGG <1.0 AI (<1.0)
[2021-02-14 12:57] LABS: Vit D 1,25 (Oh)2, Total 13 pg/mL (18-72); Vit D2 1,25 (Oh)2 <8 pg/mL; Vit D3 1,25 (Oh)2 13 pg/mL
--- NOTE | 2021-02-16 09:39 | PC.SOCIAL ---
pts discharge summary faxed to Dr. Schulz office for establishing care and follow up appointment.
[2021-02-18 12:57] LABS: DNA AB (DS) CRITHIDIA,IFA NEGATIVE (NEGATIVE)
== END 2021-02-12 15:00 | disposition home health service (06) | DRG 640 ==
LOC: ER 18:19 → ICU 19:11 → MEDSURG 02-10 23:06
PROVIDERS: Internal Medicine Nephrology; Admitting Provider Family Medicine; Emergency Provider Family Medicine; PCP Family Medicine; Visit Provider Family Medicine
DX: E87.1 Hypo-osmolality and hyponatremia (principal); I50.33 Acute on chronic diastolic (congestive) heart failure; I13.0 Hypertensive heart and chronic kidney disease with heart failure and stage 1 through stage 4 chronic kidney disease, or unspecified chronic kidney disease; J44.1 Chronic obstructive pulmonary disease with (acute) exacerbation; N17.9 Acute kidney failure, unspecified; E46 Unspecified protein-calorie malnutrition; K70.31 Alcoholic cirrhosis of liver with ascites; E87.6 Hypokalemia; E11.22 Type 2 diabetes mellitus with diabetic chronic kidney disease; N18.9 Chronic kidney disease, unspecified; F10.20 Alcohol dependence, uncomplicated; F17.210 Nicotine dependence, cigarettes, uncomplicated; J84.10 Pulmonary fibrosis, unspecified; D63.1 Anemia in chronic kidney disease; K21.9 Gastro-esophageal reflux disease without esophagitis; E11.40 Type 2 diabetes mellitus with diabetic neuropathy, unspecified; D47.2 Monoclonal gammopathy; Z68.33 Body mass index [BMI] 33.0-33.9, adult; Z79.84 Long term (current) use of oral hypoglycemic drugs
CPT/HCPCS: 36415; 36416; 49083; 51702; 71045; 71250; 74176; 80053; 80074; 81001; 81003; 82140; 82436; 82570; 82607; 82652; 82728; 82746; 82962; 83036; 83516; 83520; 83540; 83550; 83690; 83735; 83880; 83883; 83930; 83935; 84100; 84133; 84145; 84295; 84300; 84443; 84484; 84540; 84550; 85025; 85610; 85730; 85999; 86160; 86162; 86235; 86255; 86376; 87040; 87070; 87077; 87086; 87186; 87205; 87426; 87635; 87641; 87806; 93005; 93306; 94640; 94664; 96372; 97110; 97116; 97161; 97165; 97530; 99291; J1644; J1815; J1940; J2543; J2920; J2930; J3411; J7512; J7626; Q3014

== ENCOUNTER → 2021-02-25 11:42 | Day surgery (SDC) | payer MEDICARE, MEDICAID, SELFPAY ==
--- NOTE | 2021-02-25 14:00 | US_ITS ---
WS: [id number] ULTRASOUND ABDOMEN LIMITED CLINICAL INFORMATION: ascites COMPARISON: None. FINDINGS: 4 quadrant ultrasound for ascites and paracentesis. Insufficient fluid for paracentesis. US/US abdomen lmt fluid [id number] IMPRESSION: Insufficient fluid for paracentesis.
== END ==
PROVIDERS: PCP Family Medicine; Visit Provider Family Medicine
DX: R18.8 Other ascites (principal)
CPT/HCPCS: 76705

== ENCOUNTER → 2021-03-18 12:10 | Day surgery (SDC) | payer MEDICARE, MEDICAID, SELFPAY ==
[2021-03-18 13:02] VITALS: BMI 29.4
[2021-03-18 13:24] VITALS: BP 105/73; PULSE 110; RESP 22; TEMP 36.6; O2SAT 98
[2021-03-18 13:28] LABS: Partial Thromboplastin Time 34.7 SECONDS (23.9-36.7)
--- NOTE | 2021-03-18 13:35 | PC.NURSE ---
When the pt presented to GI lab he was SOB, had audible breath sounds, O2 was 85% on room air, his HR was bouncing between 107 and 120 bpm, BP was 105/73, pt had 4 plus pitting edema bilateral lower extremities. I put the pt on 3L nasal canula that raised his O2 to 98%. Ultrasound came to scan the pt to assess for fluid for his para. The pt stated he had to urinate. A UA was already ordered. Another nurse and myself assisted the pt to the nearest restroom. The pt's urine was brown in color. Mone Walker RN called Dr. Pedroza the hospitalist he came to assess the pt. When Dr. Pedroza was here the pt's O2 was 76% on room air and his HR was 130s to 140s. Dr Vann recommended the pt go to ER. Mone called ER to give report and took the pt down by wheelchair. Before the pt left I placed him on 3L oxygen via nasal canula.
[2021-03-18 13:38] LABS: Calcium 7.8 mg/dL (8.5-10.5)
[2021-03-18 13:59] LABS: 25 Hydroxy Vitamin D 18 ng/mL (30-100); Albumin Level 2.9 g/dL (3.5-5.2); Anion Gap 20.9 (5-19); Blood Urea Nitrogen 33 mg/dL (8-23); Calcium 7.8 mg/dL (8.5-10.5); Carbon Dioxide 23 mmol/L (22-29); Chloride 86 mmol/L (98-107); Glucose 152 mg/dL (65-115); Magnesium 1.5 mg/dL (1.7-2.3); Phosphorus 4.3 mg/dL (2.5-4.5); Sodium 128 mmol/L (136-145); Thyroid Stimulating Hormone 4.66 uIU/mL (0.27-4.20)
--- NOTE | 2021-03-18 14:00 | US_ITS ---
WS: [id number] Ultrasound abdomen limited INDICATION: Ascites TECHNIQUE: Four-quadrant ultrasound FINDINGS: Four-quadrant ultrasound demonstrates moderate ascites. US/US abdomen lmt fluid [id number] IMPRESSION: Moderate ascites
[2021-03-18 14:02] LABS: Potassium 1.9 mmol/L (3.5-5.1)
[2021-03-18 14:27] LABS: Parathyroid Hormone 78.9 pg/mL (15-65)
[2021-03-18 14:47] LABS: Urine Appearance Cloudy (CLEAR); Urine Color Red (Yellow)
[2021-03-18 14:48] LABS: Bacteria Urine 1+ /hpf; Bilirubin Urine Neg (Negative); Blood Urine 3+ (Negative); Glucose Urine UA Norm (Normal); Ketones Urine Negative (Negative); Leukocyte Esterase Urine Negative (Negative); Mucus Urine 1+ /hpf; Nitrate Urine Negative (Negative); Protein Urine 2+ (Negative); RBC Urine TOO NUMEROUS TO CNT /hpf (0-2); Specific Gravity, Urine 1.015 (1.005-1.030); Urobilinogen Urine 1 mg/dL (Negative); WBC Urine 0-4 /hpf (0-5); pH Urine 5 (5-7)
[2021-03-18 14:49] LABS: Add Urine Culture? Yes
[2021-03-18 14:59] LABS: Urine Creatinine 44 mg/dL (39-259); Urine Random Sodium 37 mmol/L
[2021-03-18 15:03] LABS: UPRO/UCREAT Ratio 1.43 mg/mg CR; Urine Protein Random 63 mg/dL
[2021-03-19 08:26] LABS: PROTEIN, TOTAL 6.3 g/dL (6.1-8.1)
[2021-03-19 15:12] LABS: ABNORMAL PROTEIN BAND 1 0.3 g/dL (NONE DETECTED); ALBUMIN 2.8 g/dL (3.8-4.8); ALPHA 1 GLOBULIN 0.4 g/dL (0.2-0.3); ALPHA 2 GLOBULIN 0.6 g/dL (0.5-0.9); BETA 1 GLOBULIN 0.3 g/dL (0.4-0.6); BETA 2 GLOBULIN 0.6 g/dL (0.2-0.5); GAMMA GLOBULIN 1.6 g/dL (0.8-1.7)
[2021-03-19 16:41] LABS: KAPPA LIGHT CHAIN, FREE, SERUM 255.4 mg/L (3.3-19.4); KAPPA/LAMBDA LIGHT CHAINS FREE 1.46 (0.26-1.65); LAMBDA LIGHT CHAIN, FREE, SERU 174.4 mg/L (5.7-26.3)
[2021-03-20 15:32] LABS: Osmolality Serum 279 mOsm/kg (278-305)
[2021-03-21 12:17] LABS: Osmolality Urine 213 mOsm/kg (50-1200)
== END ==
LOC: RAD 12:11 → GILAB 12:55
PROVIDERS: PCP Family Medicine; Visit Provider Family Medicine
DX: R18.8 Other ascites (principal)
CPT/HCPCS: 76705; 80069; 81001; 82306; 82310; 82570; 83735; 83883; 83930; 83935; 83970; 84155; 84156; 84165; 84300; 84439; 84443; 85025; 85610; 85730

== ENCOUNTER 2021-03-18 13:39 | Inpatient (IN) | payer MEDICARE, MEDICAID, SELFPAY ==
--- NOTE | 2021-03-18 13:40 | XR_ITS ---
WS: [id number] Exam: XR chest 1V portable [id number] Date/Time of Exam: 03/18/2021 1:40 PM Reason For Exam: dyspnea/cough Comparison 09/22/2018. Chronic interstitial changes of fibrosis and honeycombing noted bilaterally. No acute consolidating p neumonia. Cardiomediastinal structures are normal for technique. No pleural effusions. No pneumothora x. Bony structures are intact. Old right clavicle fracture. XR/XR chest 1V portable [id number] IMPRESSION: 1. Chronic interstitial changes of fibrosis and honeycombing. 2. No acute infiltrate.
--- NOTE | 2021-03-18 13:41 | ECG_ITS ---
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 Measurements Intervals [place] Rate: 98 P: IN: QRS: 26 QRSD: 110 T: 40 QT: 379 QTc: 484 Interpretive Statements ATRIAL FIBRILLATION WITH ABERRANT CONDUCTION OR VENTRICULAR PREMATURE COMPLEXES MINIMAL ST DEPRESSION [0.025+ mV ST DEPRESSION] Compared to ECG 02/09/2021 19:28:41 Ventricular premature complex(es) now present Aberrant conduction of supraventricular beat(s) now present ST (T wave) deviation now present Sinus rhythm no longer present Electronically Signed On 03-18-2021 16:25:23 INSPECTOR CONVEYOR LINE by Marleny Gamez M.D. [id number]
--- NOTE | 2021-03-18 13:48 | ED_ITS ---
HPI - Arrhythmia/Palpitations General: Chief Complaint: Shortness of Breath/Dyspnea Stated Complaint: NEW ONSET OF AFIB Time Seen by Provider: 03/18/21 13:40 History of Present Illness: HPI narrative: 75-year-old male presents emergency room from outpatient surgery. He was supposed to have a paracentesis today upon arrival there is complaining of shortness of breath palpitations initial evaluation found her to be in atrial fibrillation rapid ventricular response Dr. Gardiner was consulted and advised patient come to the emergency room. He denies any chest pain his biggest complaint is shortness of breath. MD complaint: rapid heart beat and palpitations Onset (ago): unknown Duration: constant Context: occurred during rest Associated symptoms: Reports nausea and short of breath; Deny anxiety, cough, diaphoresis, muscle cramps, paresthesias, pre-syncope, s ense of impending doom, syncope or vomiting Review of Systems Const: Denies: diaphoresis Card: Denies: syncope or pre-syncope GI: Reports: nausea; Denies: vomiting Musc: Denies: muscle cramps Psych: Denies: anxiety PFSH ED PFSH: Medical History (Updated 03/18/21 @ 18:04 by Chriss Patel MD) Acute kidney injury superimposed on CKD Alcoholism Anasarca COPD exacerbation GERD (gastroesophageal reflux disease) Hyperglycemia Hypertension Microscopic hematuria Pulmonary fibrosis Type 2 diabetes mellitus with diabetic neuropathy, without long-term current use of insulin Surgical History Hx of cataract surgery Hx of hernia repair Family History Father , IN MID 80'S of unknown cause Mother , MID 80'S Cancer MELONOMA Social History Smoking and tobacco status: current every day smoker cigarettes Packs smoked per day: 1 Alcohol intake: current Alcohol intake frequency: 3 or more drinks per day Marital status: Current occupational status: retired History of recent travel: No Physical Exam Const: COMMON NORMALS: no acute distress GENERAL APPEARANCE: cooperative and comfortable ORIENTATION/CONSCIOUSNESS: Yes awake, Yes oriented to person, Yes oriented to place and Yes oriented to time HENMT: COMMON NORMALS: normocephalic, atraumatic and hearing grossly normal bilaterally HEAD & SCALP: normocephalic and atraumatic Neck/C-Spine: COMMON NORMALS: no JVD Resp: COMMON NORMALS: normal respiratory effort, No retractions and No use of accessory muscles AUSCULTATION: crackles and wheezes Cardio: COMMON NORMALS: no JVD and No murmurs present (Cardio) RATE: tachycardic RHYTHM: abnormal rhythm irregularly irregular GI: COMMON NORMALS: Soft to palpation and No hepatosplenomegaly present INSPECTION: Yes abdominal distension and Yes Fluid wave present AUSCULTATION: Yes Hypoactive bowel sounds present PALPATION: Yes Soft to palpation, No Tenderness to palpation present (GI), No Guarding due to palpation present (GI) and Yes No hepatosplenomegaly present PERCUSSION: dullness to percussion and Fluid wave present Extremity: COMMON NORMALS: normal to inspection, capillary refill normal and no calf tenderness GENERAL: Yes edema Neuro: SENSORIUM/ORIENTATION: Yes oriented to person, Yes oriented to place and Yes oriented to time Skin: COMMON NORMALS: no rashes or lesions noted GENERAL SKIN EXAM: no rashes or lesions noted Course Vital Signs: Vital signs: Vital Signs Temperature 97.6 F 03/20/21 04:10 Pulse Rate 90 03/20/21 06:02 Respiratory Rate 20 H 03/20/21 06:02 Blood Pressure 93/64 03/20/21 06:02 Pulse Oximetry 93 03/20/21 06:02 MDM - Arrhythmia/Palpitations MDM Narrative: Medical decision making narrative: New onset A. fib with hypokalemia hypomagnesemia and congestive heart failure patient appears to be in hepatorenal syndrome with acute kidney injury discussed with hospitalist orders written hospitalist has consulted nephrology. Lab Data: Labs: Lab Results 03/18/21 03/18/21 03/18/21 12:45 12:45 12:45 WBC 10.6 10^3/uL H 10 ^3/uL (4.0-10.0) RBC 3.87 10^6/uL L 10 ^6/uL (4.1-5.3) Hgb 11.1 g/dL L g/dL (11.7-16.6) Hct 32.0 % L % (42.0-52.0) MCV 82.7 fl fl (80-94) MCH 28.7 pg pg (28.0-34.0) MCHC 34.7 g/dL g/dL (30.0-36.0) RDW 14.8 % % (12.1-15.1) Plt Count 218 10^3/cmm 10^3 /cmm (130-400) MPV 9.4 fL fL (7.4-10.4) Neut % (Auto) 83.8 % % Lymph % (Auto) 6.4 % % [place] % (Auto) 7.5 % % Eos % (Auto) 0.9 % % Baso % (Auto) 0.5 % % Neut # (Auto) 8.87 10^3/uL H 10 ^3/uL (1.8-7.7) Lymph # (Auto) 0.7 10^3/uL L 10^ 3/uL (0.8-4.8) Garvin # (Auto) 0.8 10^3/uL 10^3/ uL (0.2-0.9) Eos # (Auto) 0.1 10^3/uL 10^3/ uL (0.0-0.8) Baso # (Auto) 0.1 10^3/uL 10^3/ uL (0.0-0.1) Nucleated RBC % (a uto) 0 % % Nucleated RBCs # 0.0 /100WBC /100W BC Sodium 129 mmol/L L mmol /L (136-145) Potassium 2.0 mmol/L L* mmo l/L (3.5-5.1) Chloride 86 mmol/L L mmol/ L (98-107) Carbon Dioxide 22 mmol/L mmol/L (22-29) Anion Gap 23.0 H (5-19) BUN 32 mg/dL H mg/dL (8-23) Creatinine 2.9 mg/dL H mg/dL (0.7-1.2) GFR Calculation Not Reportable Glucose 149 mg/dL H mg/dL (65-115) Calculated Osmolal ity 278 mOsm/kg L mOs m/kg (285-295) Calcium 7.6 mg/dL L mg/dL (8.5-10.5) Magnesium Total Bilirubin 2.7 mg/dL H mg/dL (0.15-1.2) AST 38 U/L U/L (0-40) ALT 19 U/L U/L (0-41) Alkaline Phosphata se 126 IU/L IU/L (40-130) Troponin T Baselin e 71 ng/L H ng/L (0-15) Troponin T 120 [place] Troponin T NT-Pro-B Natriuret Pep 38151 pg/mL H pg/ mL (0-450) Total Protein 6.2 g/dL L g/dL (6.6-8.7) Albumin 2.9 g/dL L g/dL (3.5-5.2) Globulin 3.3 g/dL g/dL (1.3-4.6) 03/18/21 03/18/21 14:03 15:00 WBC RBC Hgb Hct MCV MCH MCHC RDW Plt Count MPV Neut % (Auto) Lymph % (Auto) [place] % (Auto) Eos % (Auto) Baso % (Auto) Neut # (Auto) Lymph # (Auto) [place] # (Auto) Eos # (Auto) Baso # (Auto) Nucleated RBC % (a uto) Nucleated RBCs # Sodium Potassium Chloride Carbon Dioxide Anion Gap BUN Creatinine GFR Calculation Glucose Calculated Osmolal ity Calcium Magnesium 1.5 mg/dL L mg/dL (1.7-2.3) Total Bilirubin AST ALT Alkaline Phosphata se Troponin T Baselin e Troponin T 120 [place] 62.81 ng/L H ng/L (0-15) [place] Troponin T -8.19 ABS# L ABS# (0-10) NT-Pro-B Natriuret Pep Total Protein Albumin Globulin Discharge Plan Discharge Patient Disposition: Admitted As Inpatient Admit Provider: Chriss Patel Clinical Impression: Congestive heart failure, Anasarca, Alcoholism, Hypokalemia, Hypomagnesemia, Hepatorenal syndrome, ELZBIETA (acute kidney injury), Diabetes mellitus Condition: Stable Coding Level of Care Code ED Busher Helper for Shaneg Fwd Exam Comprehensive
[2021-03-18 13:51] VITALS: BP 123/77; PULSE 110; RESP 23; TEMP 35.7; O2SAT 98; BMI 29.4
[2021-03-18 14:01] LABS: Basophils # 0.1 10^3/uL (0.0-0.1); Basophils % 0.5 %; Eosinophils # 0.1 10^3/uL (0.0-0.8); Eosinophils % 0.9 %; Hemoglobin 11.1 g/dL (11.7-16.6); Lymphocytes # 0.7 10^3/uL (0.8-4.8); Lymphocytes % 6.4 %; Mean Corpuscular HGB Conc 34.7 g/dL (30.0-36.0); Mean Corpuscular Hemoglobin 28.7 pg (28.0-34.0); Mean Corpuscular Volume 82.7 fl (80-94); Mean Platelet Volume 9.4 fL (7.4-10.4); Monocytes # 0.8 10^3/uL (0.2-0.9); Monocytes % 7.5 %; Neutrophils # 8.87 10^3/uL (1.8-7.7); Neutrophils % 83.8 %; Nucleated Red Blood Cells % 0 %; Platelet Count 218 10^3/cmm (130-400); Red Blood Count 3.87 10^6/uL (4.1-5.3); Red Cell Distribution Width 14.8 % (12.1-15.1); White Blood Count 10.6 10^3/uL (4.0-10.0)
[2021-03-18 14:19] VITALS: PULSE 104; RESP 16; O2SAT 97
[2021-03-18 14:20] LABS: Troponin(5th) Baseline 71 ng/L (0-15)
[2021-03-18 14:26] LABS: Alanine Aminotransferase 19 U/L (0-41); Albumin Level 2.9 g/dL (3.5-5.2); Alkaline Phosphatase 126 IU/L (40-130); Aspartate Amino Transferase 38 U/L (0-40); Blood Urea Nitrogen 32 mg/dL (8-23); Calcium 7.6 mg/dL (8.5-10.5); Carbon Dioxide 22 mmol/L (22-29); Chloride 86 mmol/L (98-107); Globulin 3.3 g/dL (1.3-4.6); Glucose 149 mg/dL (65-115); NT Pro B Type Natriuretic Pept 23215 pg/mL (0-450); Osmolality Calculated 278 mOsm/kg (285-295); Sodium 129 mmol/L (136-145); Total Bilirubin 2.7 mg/dL (0.15-1.2); Total Protein 6.2 g/dL (6.6-8.7)
[2021-03-18 14:36] LABS: Magnesium 1.5 mg/dL (1.7-2.3)
--- NOTE | 2021-03-18 15:01 | PC.PHAR ---
pt states his daughter was helping him set up his medications but states she stopped so he has been doing it himself-pt brought in some of his medication bottles-pt states he stop taking his gabapentin a while ago ext med history shows last filled on 03/06/21 30d/s-pts med bottle for galauvia has 100mg daily filled on 02/20/21 pt states he takes half a tab (50mg) daily rx written on 02/12/21-notes are made in the pharmacy comments-pt states he has been taking lasix bid rx filled on 02/12/21 30d/s for 40mg bid pt brought that bottle in-another rx for lasix 20mg daily prn was filled on 02/20/21
[2021-03-18] MEDS: lidocaine 1% 5 ML in potassium chloride premix 100 ML 25 ML IV ×2 (15:34→23:20)
[2021-03-18] MEDS: magnesium sulfate premix 2 GM/50 ML PIGGYBACK IV (15:34)
--- NOTE | 2021-03-18 15:41 | ECG_ITS ---
[facility] Test Date: 2021-03-18 Pat Name: Den Bedolla Department: Room: Gender: Male Reel Winder: : 1945 Requested By: Rolf Jim Order Number: [id number] Emmanuel MD: Marleny Gamez M.D. Measurements Intervals [place] Rate: 99 P: [place]: QRS: 38 QRSD: 118 T: -2 QT: 303 QTc: 389 Interpretive Statements ATRIAL FIBRILLATION WITH ABERRANT CONDUCTION OR VENTRICULAR PREMATURE COMPLEXES POSSIBLE LATERAL MYOCARDIAL INFARCTION , PROBABLY OLD [30 ms Q WAVE IN I/aVL/V5/V6] Compared to ECG 03/18/2021 14:19:54 Myocardial infarct finding now present ST (T wave) deviation no longer present Electronically Signed On 03-18-2021 16:41:04 INDUSTRIAL X RAY OPERATOR by Marleny Gamez M.D. [id number]
[2021-03-18 15:44] LABS: Troponin 5 2HR 62.81 ng/L (0-15)
--- NOTE | 2021-03-18 17:16 | P.HP_ITS ---
Providers/Chief Complaint Primary Care Provider: Cristo Mccormick DO Chief Complaint: NEW ONSET OF AFIB History of Present Illness Den Bedolla is a 75 year old male with post medical history of COPD , diabetes , chronic smoker, history of alcoholism,HFpEF, decompensated liver cirrhosis secondary to alcohol abuse, chronic hyponatremia, CKD stage III, Came in with chief complaint of generalized weakness fatigue, cough, palpitation,wheezing, shortness of breath going on for last couple of days.He was also complaining of worsening abdominal swelling,worsening bilateral lower extremity swelling. Today he was in GI Lab for an outpatient paracentesis, was found to be in A. fib with RVR, patient was advised to go to emergency room. Cur rently denies any chest pains, abdominal pain, nausea , vomiting Difficulty passing urine. Upon arrival in the ER he was worked up for above-mentioned complaint. Imaging studies: Abdominal ultrasound: Showed moderate ascites X-ray chest: Chronic changes, no acute infiltrates Pertinent labs: WBC 10.6, H&H:11.1/32, platelet count:218 , PT/INR:16/1.30 Serum sodium 129 , serum potassium :2 , BUN serum creatinine 32/ 2.9 , random blood glucose 149, serum magnesium 1.5, total bilirubin 2.7, AST , ALT, alk phos normal , Troponin trend without significant delta, proBNP:41203 , 25 hydroxy vitamin D:18, TSH 4.66, Urinalysis: Too numerous to count RBCs, Electrolyte correction was undertaken in the ER: Review of Systems Const: Denies: fever(s), chills or diaphoresis Card: Denies: leg pain with exertion Resp: Denies: pain on inspiration GI: Denies: nausea, vomiting, diarrhea or constipation : Denies: flank pain or difficulty urinating Musc: Denies: back pain or extremity pain Neuro: Denies: headache(s), difficulty walking or confusion Medications/Allergies Home Medications Medication Instructions Recorded Confirmed Last Taken Type CAM WALKER #1 each 05/22/19 03/18/21 03/18/21 Rx albuterol sulfate 90 mcg/actuation 2 puff INHALATION Q4H PRN MDD 12 05/22/19 03/18/21 03/18/21 History aerosol inhaler puffs Januvia 50 mg PO QAM 03/18/21 03/18/21 Unknown History cyanocobalamin (vitamin B-12) 5,000 mcg PO PRN 03/18/21 03/18/21 Unknown History [Vitamin B-12] famotidine [Pepcid] 20 mg PO DAILY PRN 03/18/21 03/18/21 Unknown History folic acid 1 mg PO DAILY 03/18/21 03/18/21 Unknown History furosemide 20 mg PO DAILY PRN 03/18/21 03/18/21 Unknown History furosemide 40 mg PO BID 03/18/21 03/18/21 03/18/21 History gabapentin 200 mg PO .HAS BUT NOT TAKING 03/18/21 03/18/21 Unknown History lactulose 30 ml PO DAILY 03/18/21 03/18/21 03/18/21 History multivitamin with folic acid 1 tab PO DAILY 03/18/21 03/18/21 Unknown History [Therems Multivitamin] pantoprazole 40 mg PO DAILY 03/18/21 03/18/21 Unknown History potassium chloride 10 meq PO DAILY PRN 03/18/21 03/18/21 Unknown History spironolactone 25 mg PO DAILY 03/18/21 03/18/21 Unknown History thiamine HCl (vitamin B1) [Vitamin 100 mg PO DAILY 03/18/21 03/18/21 Unknown History B-1] Allergies Allergy/AdvReac Type Severity Reaction Status Date / Time No Known Allergies Allergy Verified 03/18/21 15:05 PFSH Acute PFSH: Medical History (Updated 03/18/21 @ 18:04 by Chriss Patel MD) Acute kidney injury superimposed on CKD Alcoholism Anasarca COPD exacerbation GERD (gastroesophageal reflux disease) Hyperglycemia Hypertension Microscopic hematuria Pulmonary fibrosis Type 2 diabetes mellitus with diabetic neuropathy, without long-term current use of insulin Surgical History Hx of cataract surgery Hx of hernia repair Family History Father , IN MID 80'S of unknown cause Mother , MID 80'S Cancer MELONOMA Social History Smoking and tobacco status: current every day smoker cigarettes Packs smoked per day: 1 Alcohol intake: current Alcohol intake frequency: 3 or more drinks per day Marital status: Current occupational status: retired History of recent travel: No Vitals/I&O/Wt Last Vital Signs Temp 96.2 F L 03/18/21 13:51 Pulse 110 H 03/18/21 13:51 Resp 23 H 03/18/21 13:51 BP 123/77 03/18/21 13:51 Pulse Ox 98 03/18/21 13:51 Weight last 48 hrs Weight 92.986 kg Physical Exam Const: COMMON NORMALS: patient oriented x3 HENMT: COMMON NORMALS: normocephalic and atraumatic HEAD & SCALP: normocephalic and atraumatic Resp: OTHER: Bilateral basal crackles present, bilateral wheezing present in both lung fritz Cardio: OTHER: S1-S2 variable intensity, irregularly irregular rhythm GI: COMMON NORMALS: Soft to palpation and non-tender AUSCULTATION: Yes normoactive bowel sounds PALPATION: Yes Soft to palpation and Yes No hepatosplenomegaly present RECTAL EXAM: Yes deferred OTHER: Grossly distended abdomen with fluid thrills Extremity: NARRATIVE EXTREMITY EXAM: 3+ bilateral pitting edema present in both the extremities up to level of knee Neuro: COMMON NORMALS: patient oriented x3 Data : 03/18/21 12:45 03/18/21 12:45 A&P Assessment and plan (1) Acute kidney injury superimposed on CKD: Status: Acute (2) Hepatorenal syndrome: Status: Acute (3) Alcoholism: Status: Acute (4) Anasarca: Status: Acute (5) Diastolic CHF: Status: Acute (6) Cirrhosis of liver: Status: Acute (7) Ascites: Status: Acute (8) Microscopic hematuria: Status: Acute (9) Type 2 diabetes mellitus with diabetic neuropathy, without long-term current use of insulin: Status: Acute (10) Hypokalemia: Status: Acute (11) Hypomagnesemia: Status: Acute (12) A-fib: Status: Acute (13) Hyponatremia: Status: Acute Additional A&P Information 75 year old male with post medical history of COPD , diabetes , chronic smoker, history of alcoholism,HFpEF, decompensated liver cirrhosis secondary to alcohol abuse, chronic hyponatremia, CKD stage III, Came in with chief complaint of generalized weakness fatigue, cough, palpitation,wheezing, shortness of breath going on for last couple of days.He was also complaining of worsening abdominal swelling,worsening bilateral lower extremity swelling. # ELZBIETA ON CKD stage III: Likely 2/2 TO HRS, +/- CRS from dialstolic dysfunction. Current plan is to fluid restrict the patient, continue with IV albumin #Severe hypokalemia: Likely secondary to recent diuretic use. Monitor and replace potassium #Hypomagnesemia: Likely secondary to alcohol use as well as diuretic, monitor and replace serum magnesium #Chronic hyponatremia: Secondary to decompensated liver cirrhosis, diuretics continue to fluid restrict the patient #HFpEF : Continue with fluid restriction, Lasix as needed #New onset A. fib: Likely secondary to severe electrolyte abnormality. Metoprolol tartrate 12.5 mg twice daily. #Gross ascites: We will schedule for paracentesis, once clinically more stable #Anasarca: Secondary to liver cirrhosis and heart failure #Diabetes: SSI, carb consistent diet, monitor fingerstick glucose #CODE STATUS: Full code #DVT prophylaxis: subcu heparin. #Disposition: Discharged home Attestations Medical Necessity Statement*: Patient is to be in hospital for management of decompensated liver cirrhosis, ELZBIETA. Anticipated length of stay greater than 2 midnights. Time Spent in Patient Care: (>than 50% of time spent in counselling and/or direct pt care on unit) . 50 mins Critical Care Time: Critical Care Time (min): 50 Other Attestations: The high probability of a clinically significant, sudden or life threatening deterioration of the patient's [] system(s) required my full and direct attention, intervention and personal management. The critical care time is as shown. This time is in addition to time spent performing any reported procedures but includes the following: [x] Data and vital sign review and interpretation [x] Patient assessment, examination and intervention [x] Documentation [x] Medication orders and management Coding Level of Care Code Acute Airport Electrician for Chg Fwd Exam Expanded Problem Focused Diagnoses Acute kidney injury superimposed on CKD N17.9; N18.9 Hepatorenal syndrome K76.7 Alcoholism F10.20 Anasarca R60.1 Diastolic CHF I50.30 Cirrhosis of liver K74.60 Ascites R18.8 Microscopic hematuria R31.29 Type 2 diabetes mellitus with diabetic neuropathy, without long-term current use of insulin E11.40 Hypokalemia E87.6 Hypomagnesemia E83.42 A-fib I48.91 Hyponatremia E87.1
--- NOTE | 2021-03-18 17:36 | P.CONIM_ITS ---
Providers/Reason For Consult Consulting Physician/Specialty*: janet pendleton nd / telenephrology Reason for Consult*: ELZBIETA, CKD stage 3, electrolyte abnormalities Requesting Physician: Dr. Chriss Patel Primary Care Provider: Cristo Mccormick DO History of Present Illness History of Present Illness Den Bedolla is a 75 year old male H/O DM, ETOH use, tob use, pulm fibrosis, hematuria, diastolic dysfunction, htn, CKD stage 3+ baseline cr of 1.5- 1.7 mg/dl. Pt had a recent admission for ELZBIETA and hyponatremia. Pt was to get a paracentesis today. At US he c/o SOB and he was sent to the ER, wheere he was diagnosed w/ ELZBIETA- cr 2.9 from 1.7 mg/dl, and a fib w/ RVR. His electrolytes were significant for hypokalemia and hypomagensemia. His na was stable at 128. He states that he takes his medicines and feels okay. he has aanasarca, liver disease, weakness, palpitations, chronic sob. denies urinary complaints. - renal called to consult for Elzbieta , ckd STAGE 3, AND ElECTROLYTE ABNORMALITIES Review of Systems General: Reports: 10 or more systems reviewed and unremarkable except in HPI and below and ROS unobtainable due to mental status Narrative: confused, weak, swollen, ascites, sob, palps. denies diarrhea. has difficulty urinating. Meds/Allergies Home Medications and Allergies Home Medications Medication Instructions Recorded Confirmed Last Taken Type CAM WALKER #1 each 05/22/19 03/18/21 03/18/21 Rx albuterol sulfate 90 mcg/actuation 2 puff INHALATION Q4H PRN MDD 12 05/22/19 03/18/21 03/18/21 History aerosol inhaler puffs Januvia 50 mg PO QAM 03/18/21 03/18/21 Unknown History cyanocobalamin (vitamin B-12) 5,000 mcg PO PRN 03/18/21 03/18/21 Unknown History [Vitamin B-12] famotidine [Pepcid] 20 mg PO DAILY PRN 03/18/21 03/18/21 Unknown History folic acid 1 mg PO DAILY 03/18/21 03/18/21 Unknown History furosemide 20 mg PO DAILY PRN 03/18/21 03/18/21 Unknown History furosemide 40 mg PO BID 03/18/21 03/18/21 03/18/21 History gabapentin 200 mg PO .HAS BUT NOT TAKING 03/18/21 03/18/21 Unknown History lactulose 30 ml PO DAILY 03/18/21 03/18/21 03/18/21 History multivitamin with folic acid 1 tab PO DAILY 03/18/21 03/18/21 Unknown History [Therems Multivitamin] pantoprazole 40 mg PO DAILY 03/18/21 03/18/21 Unknown History potassium chloride 10 meq PO DAILY PRN 03/18/21 03/18/21 Unknown History spironolactone 25 mg PO DAILY 03/18/21 03/18/21 Unknown History thiamine HCl (vitamin B1) [Vitamin 100 mg PO DAILY 03/18/21 03/18/21 Unknown History B-1] Allergies Allergy/AdvReac Type Severity Reaction Status Date / Time No Known Allergies Allergy Verified 03/18/21 15:05 Current Medications Current Medications Generic Name Dose Route Start Last Admin Trade Name Freq PRN Reason Stop Dose Admin Lidocaine HCl 5 ml/ Potassium 105 mls @ 25 mls/hr 03/18/21 14:15 03/18/21 15:34 Chloride IV 03/18/21 22:14 25 mls/hr Q4H YAW Administration PFSH Acute PFSH: Medical History (Updated 03/18/21 @ 17:40 by Rolf Campbell DO) Acute kidney injury superimposed on CKD Alcoholism Anasarca COPD exacerbation GERD (gastroesophageal reflux disease) Hyperglycemia Hypertension Microscopic hematuria Pulmonary fibrosis Type 2 diabetes mellitus with diabetic neuropathy, without long-term current use of insulin Surgical History Hx of cataract surgery Hx of hernia repair Family History Father , IN MID 80'S of unknown cause Mother , MID 80'S Cancer MELONOMA Social History Smoking and tobacco status: current every day smoker cigarettes Packs smoked per day: 1 Alcohol intake: current Alcohol intake frequency: 3 or more drinks per day Marital status: Current occupational status: retired History of recent travel: No Vitals/I&O/Wt Last Vital Signs Temp 96.2 F L 03/18/21 13:51 Pulse 110 H 03/18/21 13:51 Resp 23 H 03/18/21 13:51 BP 123/77 03/18/21 13:51 Pulse Ox 98 03/18/21 13:51 Weight last 48 hrs Weight 92.986 kg Physical Exam Narrative: EXAM NARRATIVE: comfortable in bed, swollen, ascites vs noted heent- nc/at, eomi, anicteric neck supple lung dull bases, crackles heart- irreg irrge, +S1, s2 abd soft, ascites, + bs ext b/l edema neuro- a,a, o x 2 A&P Additional A&P Information 75 yr old man H/O DM, ETOH use, tob use, pulm fibrosis, hematuria, diastolic dysfunction, htn, and CKD stage 3 b 1. CKD stage 3 b- cr 1.5- 1.7 mg/dl - lsome component of HRS +/- CRS from dialstolic dysfunction -but he has severe proteinuria- possible membranous nephropathy or FSGS -[place]/lambda ratio was normal -agree w/ renal biopsy when possible 2. ELZBIETA- likely from diuretics vs progression of underlying renal disease. -serologies negative -check renal us -hold diuresis until k and mag are improved 3. hypokalemia- likely from diuretics +/- diarrhea- replace k and mag and monitor 4. hyponatremia of Liver disease/ cirrhosis and ELZBIETA/ cKD- free water restrict 5.high bnp noted- consider paracentesis. 6. a fib- control HR per medicine. replete k and mag seen and examine dw/ rN- telehealth visit discussed w/ Dr Patel time spent 50 min Consult Attestations Medical Necessity Statement: a fib, hypokalemia, ELZBIETA on CKD stage 3b Time Spent in Patient Care: Greater than 35 minutes (>than 50% of time spent in counselling and/or direct pt care on unit) . Coding Level of Care Code Acute Industry Segment Specialist for Kusum Christine
--- NOTE | 2021-03-18 19:41 | ECG_ITS ---
[facility] Test Date: 2021-03-18 Pat Name: Den Bedolla Department: Room: ICU12 Gender: Male Assistant Cook: : 1945 Requested By: Rolf Jim Order Number: [id number] Reading MD: DAGOBERTO BECKHAM Measurements Intervals [place] Rate: 70 P: 74 [place]: 142 QRS: 48 QRSD: 125 T: 37 QT: 376 QTc: 408 Interpretive Statements SINUS RHYTHM WITH OCCASIONAL VENTRICULAR PREMATURE COMPLEXES WITH OCCASIONAL SUPRAVENTRICULAR PREMATURE COMPLEXES PROBABLE LATERAL MYOCARDIAL INFARCTION , PROBABLY OLD [35 ms Q WAVE IN I/aVL/V5/V6] Compared to ECG 03/18/2021 15:34:16 Atrial fibrillation no longer present Aberrant conduction of supraventricular beat(s) no longer present Myocardial infarct finding still present Electronically Signed On 03-19-2021 10:00:06 BANDAGE MAKER by DAGOBERTO BECKHAM [id number]
[2021-03-18] MEDS: pantoprazole 40 mg SDV IVP (20:07)
[2021-03-18] MEDS: metoprolol tartrate 25 mg Tablet 12.5 MG PO (20:08)
[2021-03-18 20:19] LABS: Troponin 5 6HR 62.35 ng/L (0-15)
[2021-03-18 20:20] LABS: Blood Urea Nitrogen 31 mg/dL (8-23); Calcium 7.6 mg/dL (8.5-10.5); Carbon Dioxide 22 mmol/L (22-29); Chloride 88 mmol/L (98-107); Glucose 120 mg/dL (65-115); Osmolality Calculated 280 mOsm/kg (285-295); Sodium 131 mmol/L (136-145)
[2021-03-18 20:21] LABS: Anion Gap 23.2 (5-19)
[2021-03-18 20:23] LABS: Potassium 2.2 mmol/L (3.5-5.1)
[2021-03-18 20:31] LABS: Glucose Point of Care 133 mg/dL (70-110)
[2021-03-18 22:00] VITALS: PULSE 73
[2021-03-18 22:22] VITALS: BP 100/60; PULSE 70; RESP 19; TEMP 35.7; O2SAT 100
[2021-03-19] VITALS (23 sets, daily range): BP systolic 83–112; BP diastolic 48–74; PULSE 72–96; RESP 10–21; TEMP 36–36.7; O2SAT 74–99
[2021-03-19] MEDS: potassium chloride ER 20 mEq Tablet PO ×2 (00:08→06:48)
--- NOTE | 2021-03-19 00:32 | PC.NURSE ---
Patient brought to ICU 12 by OFFSHORE WIND TURBINE TECHNICIAN on stretcher. Patient transferred to ICU bed x4 assist. Patient tolerated well. Patient placed on VS monitoring and all VS WNL. Patient denies any pain, needs, or requests at this time. Admission assessment completed.
[2021-03-19 01:01] LABS: Bilirubin Urine Neg (Negative); Blood Urine 3+ (Negative); Glucose Urine UA Norm (Normal); Ketones Urine Negative (Negative); Leukocyte Esterase Urine Trace (Negative); Nitrate Urine Negative (Negative); Protein Urine 2+ (Negative); Urine Appearance Hazy (CLEAR); Urine Color Red (Yellow); Urobilinogen Urine Neg (Negative); pH Urine 5 (5-7)
[2021-03-19 01:02] LABS: RBC Urine TOO NUMEROUS TO CNT /hpf (0-2); Squamous Epithelial Cell Urine RARE /hpf (0-5)
[2021-03-19 05:03] LABS: Basophils # 0.1 10^3/uL (0.0-0.1); Basophils % 0.6 %; Eosinophils # 0.2 10^3/uL (0.0-0.8); Eosinophils % 2.1 %; Hematocrit 27.7 % (42.0-52.0); Hemoglobin 9.4 g/dL (11.7-16.6); Lymphocytes # 0.7 10^3/uL (0.8-4.8); Lymphocytes % 6.2 %; Mean Corpuscular HGB Conc 33.9 g/dL (30.0-36.0); Mean Corpuscular Hemoglobin 28.4 pg (28.0-34.0); Mean Corpuscular Volume 83.7 fl (80-94); Mean Platelet Volume 9.2 fL (7.4-10.4); Monocytes % 9.3 %; Neutrophils # 8.71 10^3/uL (1.8-7.7); Neutrophils % 81.4 %; Nucleated Red Blood Cells % 0 %; Platelet Count 166 10^3/cmm (130-400); Red Blood Count 3.31 10^6/uL (4.1-5.3); Red Cell Distribution Width 14.7 % (12.1-15.1); White Blood Count 10.7 10^3/uL (4.0-10.0)
[2021-03-19 05:23] LABS: INR 1.42 (0.8-1.2)
[2021-03-19 05:25] LABS: Alanine Aminotransferase 14 U/L (0-41); Albumin Level 3.2 g/dL (3.5-5.2); Alkaline Phosphatase 88 IU/L (40-130); Anion Gap 19.3 (5-19); Aspartate Amino Transferase 26 U/L (0-40); Blood Urea Nitrogen 31 mg/dL (8-23); Calcium 7.7 mg/dL (8.5-10.5); Carbon Dioxide 24 mmol/L (22-29); Chloride 93 mmol/L (98-107); Globulin 2.5 g/dL (1.3-4.6); Glucose 121 mg/dL (65-115); Osmolality Calculated 286 mOsm/kg (285-295); Phosphorus 4.6 mg/dL (2.5-4.5); Sodium 134 mmol/L (136-145); Total Protein 5.7 g/dL (6.6-8.7)
[2021-03-19 05:34] LABS: Lactic Sepsis W/Reflex 1.1 mmol/L (0.5-2.2)
[2021-03-19 05:37] LABS: NT Pro B Type Natriuretic Pept 19569 pg/mL (0-450); Procalcitonin 0.37 ng/mL (0-0.5)
[2021-03-19 05:59] LABS: Potassium 2.3 mmol/L (3.5-5.1)
[2021-03-19] MEDS: lidocaine 1% 5 ML in potassium chloride premix 100 ML 25 ML IV ×3 (06:48→22:08)
--- NOTE | 2021-03-19 07:00 | P.PN_ITS ---
Subjective Subjective: Interval history: feels better. dec cough and sob. still anasarca, ascites, weak Medications: Reviewed: Yes Medication Review Details: Current Medications Acetaminophen (Acetaminophen 325 Mg Tablet) 650 mg PO Q6H PRN PRN Reason: Mild/Mod Pain Or Temp >/= 101 Albuterol/Ipratropium (Ipratropium-Albuterol 3 Ml Neb) 3 ml INHALATION Q6H YAW Bisacodyl (Bisacodyl 5 Mg Tablet) 10 mg PO DAILY PRN; Protocol PRN Reason: Constipation (see protocol) Dextrose (Dextrose 50% Syringe 50 Ml) 25 ml IVP ONCE PRN; Protocol PRN Reason: hypoglycemia protocol Dextrose (Dextrose 50% Syringe 50 Ml) 50 ml IVP PRN PRN; Protocol PRN Reason: hypoglycemia protocol Folic Acid (Folic Acid 1 Mg Tablet) 1 mg PO DAILY YAW Glucagon (Glucagon 1 Mg/Ml Inj 1 Ml) 1 mg IM ONCE PRN; Protocol PRN Reason: Adult Acute Hypoglycemia Prot. Guaifenesin/Dextromethorphan (Guaifenesin-Dextromethorphan Udc 10 Ml) 10 ml PO Q6H PRN PRN Reason: COUGH Heparin Sodium (Porcine) (Heparin 5,000 Unit/Ml Inj 1 Ml) 5,000 unit SUBCUT Q12H YAW Dextrose (D5w) 500 mls @ 100 mls/hr IV ONCE PRN; Protocol PRN Reason: Adult Acute Hypoglycemia Prot Albumin Human (Albumin) 25 gm in 100 mls @ 60 mls/hr IV Q8H [facility] Last Infusion: 03/19/21 03:28 Dose: Infused Documented by: Lidocaine HCl 5 ml/ Potassium (Chloride) 105 mls @ 25 mls/hr IV ONCE ONE Stop: 03/19/21 10:46 Last Admin: 03/19/21 06:48 Dose: 25 mls/hr Documented by: Insulin Human Lispro (Insulin Lispro 100 Unit/1 Ml) 0 unit SUBCUT WM&BEDTIME [facility]; Protocol Last Admin: 03/19/21 00:09 Dose: Not Given Documented by: Lactulose (Lactulose Oral Liq 20 Gm/30 Ml Udc) 20 gm PO DAILY [facility] Metoprolol Tartrate (Metoprolol Tartrate 1 Mg/1 Ml Sdv 5 Ml) 5 mg IVP Q4H PRN PRN Reason: TACHYCARDIA Metoprolol Tartrate (Metoprolol Tartrate 25 Mg Tablet) 12.5 mg PO BID [facility] Last Admin: 03/18/21 20:08 Dose: 12.5 mg Documented by: Multivitamins Therapeutic (Multivitamin Therapeutic Tablet) 1 tab PO DAILY [facility] Ondansetron HCl (Ondansetron 2 Mg/Ml Sdv 2 Ml) 4 mg IVP Q8H PRN PRN Reason: vomiting, or N/V if npo Pantoprazole Sodium (Pantoprazole 40 Mg Sdv) 40 mg IVP Q24H [facility] Last Admin: 03/18/21 20:07 Dose: 40 mg Documented by: Thiamine Mononitrate (Thiamine 100 Mg Tablet) 100 mg PO DAILY [facility] Vitals/I&O/Wt Last Vital Signs Temp 96.9 F L 03/19/21 06:00 Pulse 74 03/19/21 06:00 Resp 19 H 03/19/21 06:00 BP 102/58 03/19/21 06:00 Pulse Ox 95 03/19/21 00:00 03/18/21 03/19/21 03/19/21 22:59 06:59 14:59 Intake Total 307 / 307 685 / 992 Output Total 700 / 700 Balance 307 / 307 -15 / 292 Weight last 48 hrs Weight 97.976 kg Weight 92.986 kg Physical Exam Narrative: EXAM NARRATIVE: comfortable in bed, swollen, ascites vs noted heent- nc/at, eomi, anicteric neck supple lungs- dull bases, wheezes b/l heart-RRR, +S1, s2 abd soft, ascites, + bs ext b/l edema neuro- a,a, o x 2 Urinary Catheter Management^: Valadez: Cath Placed During This Visit: yes Reason for Continuing Indwelling Catheter: Accurate Measurement of Urinary Output in Critically Ill Patients Urinary Catheter Date of Insertion: 03/18/21 Urinary Catheter Time of Insertion: 18:34 Data : 03/19/21 04:32 03/19/21 04:32 A&P Additional A&P Information 75 yr old man H/O DM, ETOH use, tob use, pulm fibrosis, hematuria, diastolic dysfunction, htn, and CKD stage 3 b 1. CKD stage 3 b- cr 1.5- 1.7 mg/dl - some component of HRS +/- CRS from diastolic dysfunction -but he has severe proteinuria- possible membranous nephropathy or FSGS -[place]/lambda ratio was normal -agree w/ renal biopsy when possible 2. ELZBIETA- likely from diuretics vs progression of underlying renal disease. -cr stable -serologies negative -check renal us -hold diuresis until k and mag are improved -significant proteinuria and hematuria -check lipid profile 3. hypokalemia- likely from diuretics +/- diarrhea- replace k and mag and monitor 4. hyponatremia of Liver disease/ cirrhosis, diuretics, and ELZBIETA/ cKD- free water restrict\ -na improving 5.high bnp noted- consider paracentesis. can also add lasix to albumin -bnp [place] 6[address]60 to [address]89 6. a fib- now in NSR. replete k and mag 7. anemia- 8 dM care per medicine 9. replace vit d seen and examined w/ rN- telehealth visit discussed w/ RN time spent 30 min Attestations Medical Necessity Statement*: chf, volume overload, electrolyte abnormalities, cirrhosis Time Spent in Patient Care: 16 - 35 minutes (>than 50% of time spent in counselling and/or direct pt care on unit) . Coding Level of Care Code Acute Professor Of Theatre for Kusum Christine
[2021-03-19 07:29] LABS: Ferritin 404 ng/mL (30-400); Iron 64 ug/dL (59-158); Percent Saturation 49.6 % (20-50); Total Iron Binding Capacity 129 mcg/dl; Unsaturated Iron Binding 65 ug/dL (112-347)
[2021-03-19] MEDS: folic acid 1 mg Tablet PO (08:17)
[2021-03-19] MEDS: lactulose oral liq 20 gm/30 mL UDC PO (08:17)
[2021-03-19] MEDS: multivitamin therapeutic Tablet 1 TAB PO (08:17)
[2021-03-19] MEDS: potassium chloride ER 20 mEq Tablet 40 MEQ PO (08:17)
[2021-03-19] MEDS: thiamine 100 mg Tablet PO (08:17)
[2021-03-19] MEDS: metoprolol tartrate 25 mg Tablet 12.5 MG PO ×2 (08:18→17:27)
[2021-03-19] MEDS: insulin lispro 100 unit/1 mL SUBCUT ×3 (08:18→22:09)
[2021-03-19 08:22] LABS: Glucose Point of Care 143 mg/dL (70-110)
[2021-03-19 11:10] LABS: Glucose Point of Care 150 mg/dL (70-110)
[2021-03-19] MEDS: FUROsemide 10 mg/mL SDV 4mL 40 MG IVP (11:37)
--- NOTE | 2021-03-19 12:05 | US_ITS ---
WS: [id number] ULTRASOUND-GUIDED THERAPEUTIC AND DIAGNOSTIC PARACENTESIS Procedure, risks, and complications have been explained to the patient. Consent is obtained. Utilizing aseptic technique and 1% buffered lidocaine, a small dermatome was made through which a 5 F rench Yueh catheter was inserted. Approximately 4100 ml of clear yellow peritoneal fluid was obtained without difficulty. No complications encountered. Specimen collected for analysis as requested by ordering physician. US/US paracentesis abd w [id number] IMPRESSION: Uncomplicated paracentesis yielding 4100 ml of peritoneal fluid.
[2021-03-19 13:14] LABS: Anion Gap 16.2 (5-19); Blood Urea Nitrogen 32 mg/dL (8-23); Calcium 7.7 mg/dL (8.5-10.5); Carbon Dioxide 25 mmol/L (22-29); Chloride 94 mmol/L (98-107); Glucose 153 mg/dL (65-115); Osmolality Calculated 284 mOsm/kg (285-295); Potassium 3.2 mmol/L (3.5-5.1); Sodium 132 mmol/L (136-145)
[2021-03-19 16:25] LABS: Blood Urea Nitrogen 32 mg/dL (8-23); Calcium 7.7 mg/dL (8.5-10.5); Carbon Dioxide 24 mmol/L (22-29); Chloride 94 mmol/L (98-107); Glucose 113 mg/dL (65-115); Osmolality Calculated 286 mOsm/kg (285-295); Sodium 134 mmol/L (136-145)
[2021-03-19 16:27] LABS: Anion Gap 18.9 (5-19)
[2021-03-19 16:41] LABS: Potassium 2.9 mmol/L (3.5-5.1)
[2021-03-19 16:50] LABS: Mononuclear #, Pertinoneal Fl 0.234 10^3/uL; Polynuclear # Cells, Perit 0.053 10^3/uL
[2021-03-19 16:53] LABS: Appearance, Peritoneal Fluid Clear (Clear); Color, Peritoneal Fluid Yellow (Pale Yellow); RBC Pertioneal Fluid 0 10^3/uL
[2021-03-19 16:55] LABS: WBC Peritoneal Fluid 287 /uL
[2021-03-19 17:08] LABS: Glucose Point of Care 124 mg/dL (70-110)
[2021-03-19] MEDS: heparin 5,000 unit/mL INJ 1 mL 5000 UNIT SUBCUT (17:27)
[2021-03-19] MEDS: pantoprazole 40 mg SDV IVP (17:27)
--- NOTE | 2021-03-19 17:55 | US_ITS ---
WS: [id number] RENAL ULTRASOUND HISTORY: valarie COMPARISON: 03/18/[address] 02/09/2021 TECHNIQUE: 2-D and color Doppler imaging of the kidney submitted. Right kidney: 12.6 cm x 5.7 cm x 5.3 cm. Kidneys difficult to see due to patient's body habitus and displacement by ascites. No abnormality id entified. Left kidney: 11.4 cm x 5.3 cm x 4.6 cm. Difficult to visualize kidney due to displacement and ascites. Aorta: Not visualized. Urinary Bladder: Valadez catheter present in a nondistended bladder. There is a small amount of ascites throughout the abdomen. US/US renal BI* [id number] IMPRESSION: 1. No renal obstruction identified. 2. Difficult evaluation due to body habitus and mild diffuse ascites.
[2021-03-19] MEDS: spironolactone 25 mg Tablet PO (18:11)
[2021-03-19 18:40] LABS: Blood Urea Nitrogen 33 mg/dL (8-23); Calcium 7.7 mg/dL (8.5-10.5); Carbon Dioxide 25 mmol/L (22-29); Chloride 95 mmol/L (98-107); Glucose 143 mg/dL (65-115); Osmolality Calculated 284 mOsm/kg (285-295); Sodium 132 mmol/L (136-145)
[2021-03-19 19:06] LABS: Anion Gap 15.1 (5-19); Potassium 3.1 mmol/L (3.5-5.1)
--- NOTE | 2021-03-19 19:24 | PC.NURSE ---
Patient resting in bed watching TV. Patient denies any pain, needs, or requests at this time. All vital signs are stable. No signs or symptoms of distress noted.
--- NOTE | 2021-03-19 19:59 | PM.PN ---
Subjective Subjective: Interval history: Patient was seen and examined this morning, continues to complain of sob as well as abdominal discomfort. Medications: Reviewed: Yes Medication Review Details: Current Medications Acetaminophen (Acetaminophen 325 Mg Tablet) 650 mg PO Q6H PRN PRN Reason: Mild/Mod Pain Or Temp >/= 101 Albuterol/Ipratropium (Ipratropium-Albuterol 3 Ml Neb) 3 ml INHALATION Q6H YAW Bisacodyl (Bisacodyl 5 Mg Tablet) 10 mg PO DAILY PRN; Protocol PRN Reason: Constipation (see protocol) Dextrose (Dextrose 50% Syringe 50 Ml) 25 ml IVP ONCE PRN; Protocol PRN Reason: hypoglycemia protocol Dextrose (Dextrose 50% Syringe 50 Ml) 50 ml IVP PRN PRN; Protocol PRN Reason: hypoglycemia protocol Folic Acid (Folic Acid 1 Mg Tablet) 1 mg PO DAILY YAW Glucagon (Glucagon 1 Mg/Ml Inj 1 Ml) 1 mg IM ONCE PRN; Protocol PRN Reason: Adult Acute Hypoglycemia Prot. Guaifenesin/Dextromethorphan (Guaifenesin-Dextromethorphan Udc 10 Ml) 10 ml PO Q6H PRN PRN Reason: COUGH Heparin Sodium (Porcine) (Heparin 5,000 Unit/Ml Inj 1 Ml) 5,000 unit SUBCUT Q12H YAW Dextrose (D5w) 500 mls @ 100 mls/hr IV ONCE PRN; Protocol PRN Reason: Adult Acute Hypoglycemia Prot Albumin Human (Albumin) 25 gm in 100 mls @ 60 mls/hr IV Q8H [facility] Last Infusion: 03/19/21 03:28 Dose: Infused Documented by: Lidocaine HCl 5 ml/ Potassium (Chloride) 105 mls @ 25 mls/hr IV ONCE ONE Stop: 03/19/21 10:46 Last Admin: 03/19/21 06:48 Dose: 25 mls/hr Documented by: Insulin Human Lispro (Insulin Lispro 100 Unit/1 Ml) 0 unit SUBCUT WM&BEDTIME [facility]; Protocol Last Admin: 03/19/21 00:09 Dose: Not Given Documented by: Lactulose (Lactulose Oral Liq 20 Gm/30 Ml Udc) 20 gm PO DAILY YAW Metoprolol Tartrate (Metoprolol Tartrate 1 Mg/1 Ml Sdv 5 Ml) 5 mg IVP Q4H PRN PRN Reason: TACHYCARDIA Metoprolol Tartrate (Metoprolol Tartrate 25 Mg Tablet) 12.5 mg PO BID [facility] Last Admin: 03/18/21 20:08 Dose: 12.5 mg Documented by: Multivitamins Therapeutic (Multivitamin Therapeutic Tablet) 1 tab PO DAILY [facility] Ondansetron HCl (Ondansetron 2 Mg/Ml Sdv 2 Ml) 4 mg IVP Q8H PRN PRN Reason: vomiting, or N/V if npo Pantoprazole Sodium (Pantoprazole 40 Mg Sdv) 40 mg IVP Q24H [facility] Last Admin: 03/18/21 20:07 Dose: 40 mg Documented by: Thiamine Mononitrate (Thiamine 100 Mg Tablet) 100 mg PO DAILY [facility] Vitals/I&O/Wt Last Vital Signs Temp 97.8 F 03/19/21 11:00 Pulse 88 03/19/21 18:30 Resp 18 03/19/21 18:30 BP 93/52 03/19/21 18:30 Pulse Ox 83 L 03/19/21 18:30 03/19/21 03/19/21 03/19/21 06:59 14:59 22:59 Intake Total 685 / 992 445 / 445 340 / 785 Output Total 700 / 700 600 / 600 450 / 1050 Balance -15 / 292 -155 / -155 -110 / -265 Weight last 48 hrs Weight 97.976 kg Weight 92.986 kg Physical Exam Const: COMMON NORMALS: patient oriented x3 HENMT: COMMON NORMALS: normocephalic and atraumatic HEAD & SCALP: normocephalic and atraumatic Resp: OTHER: Bilateral basal crackles present, bilateral wheezing present in both lung fritz Cardio: OTHER: S1-S2 variable intensity, irregularly irregular rhythm GI: COMMON NORMALS: Soft to palpation and non-tender AUSCULTATION: Yes normoactive bowel sounds PALPATION: Yes Soft to palpation RECTAL EXAM: Yes deferred OTHER: Grossly distended abdomen with fluid thrills Extremity: NARRATIVE EXTREMITY EXAM: 3+ bilateral pitting edema present in both the extremities up to level of knee Neuro: COMMON NORMALS: patient oriented x3 Urinary Catheter Management^: Valadez: Cath Placed During This Visit: yes Reason for Continuing Indwelling Catheter: Accurate Measurement of Urinary Output in Critically Ill Patients Urinary Catheter Date of Insertion: 03/18/21 Urinary Catheter Time of Insertion: 18:34 Data : 03/19/21 04:32 03/19/21 18:06 A&P Assessment and plan (1) Acute kidney injury superimposed on CKD: Status: Acute (2) Hepatorenal syndrome: Status: Acute (3) Alcoholism: Status: Acute (4) Anasarca: Status: Acute (5) Diastolic CHF: Status: Acute (6) Cirrhosis of liver: Status: Acute (7) Ascites: Status: Acute (8) Microscopic hematuria: Status: Acute (9) Type 2 diabetes mellitus with diabetic neuropathy, without long-term current use of insulin: Status: Acute (10) Hypokalemia: Status: Acute (11) Hypomagnesemia: Status: Acute (12) A-fib: Status: Acute (13) Hyponatremia: Status: Acute Additional A&P Information 75 year old male with post medical history of COPD , diabetes , chronic smoker, history of alcoholism,HFpEF, decompensated liver cirrhosis secondary to alcohol abuse, chronic hyponatremia, CKD stage III, Came in with chief complaint of generalized weakness fatigue, cough, palpitation,wheezing, shortness of breath going on for last couple of days.He was also complaining of worsening abdominal swelling,worsening bilateral lower extremity swelling. # ELZBIETA ON CKD stage III: Likely 2/2 TO HRS, +/- CRS from dialstolic dysfunction. Current plan is to fluid restrict the patient, continue with IV albumin. Appreciate renal inputs #Severe hypokalemia: Likely secondary to recent diuretic use. Monitor and replace potassium #Hypomagnesemia: Likely secondary to alcohol use as well as diuretic, monitor and replace serum magnesium #Chronic hyponatremia: Secondary to decompensated liver cirrhosis, diuretics continue to fluid restrict the patient #HFpEF : Continue with fluid restriction, Lasix 40 IV one-time dose today Spironolactone 25 mg po daily #New onset A. fib: Likely secondary to severe electrolyte abnormality. Metoprolol tartrate 12.5 mg twice daily. #Gross ascites: S/P Ultrasound guided paracentesis with removal of 4Ls ascitic fluid. Ascitic fluid sent for cell count and differential. #Anasarca: Secondary to liver cirrhosis and heart failure #Diabetes: SSI, carb consistent diet, monitor fingerstick glucose #CODE STATUS: Full code #DVT prophylaxis: subcu heparin. #Disposition: Discharged home Attestations Medical Necessity Statement*: Patient needs to be in the hospital for management of Above defined problems. Time Spent in Patient Care: Greater than 35 minutes (>than 50% of time spent in counselling and/or direct pt care on unit). Critical Care Time: Critical Care Time (min): 35 Other Attestations: The high probability of a clinically significant, sudden or life threatening deterioration of the patient's [] system(s) required my full and direct attention, intervention and personal management. The critical care time is as shown. This time is in addition to time spent performing any reported procedures but includes the following: [x] Data and vital sign review and interpretation [x] Patient assessment, examination and intervention [x] Documentation [x] Medication orders and management Coding Level of Care Code Acute Preschool Assistant Director for g Fwd Diagnoses Acute kidney injury superimposed on CKD N17.9; N18.9 Hepatorenal syndrome K76.7 Alcoholism F10.20 Anasarca R60.1 Diastolic CHF I50.30 Cirrhosis of liver K74.60 Ascites R18.8 Microscopic hematuria R31.29 Type 2 diabetes mellitus with diabetic neuropathy, without long-term current use of insulin E11.40 Hypokalemia E87.6 Hypomagnesemia E83.42 A-fib I48.91 Hyponatremia E87.1
[2021-03-19] MEDS: ipratropium-albuterol 3 mL Neb INHALATION (20:52)
[2021-03-19 21:07] LABS: Glucose Point of Care 167 mg/dL (70-110)
[2021-03-20] VITALS (39 sets, daily range): BP systolic 84–107; BP diastolic 47–64; PULSE 81–104; RESP 16–29; TEMP 36.1–36.5; O2SAT 70–95
[2021-03-20] MEDS: potassium chloride ER 20 mEq Tablet 40 MEQ PO ×3 (00:41→09:05)
[2021-03-20 00:50] LABS: Anion Gap 18.1 (5-19); Blood Urea Nitrogen 35 mg/dL (8-23); Calcium 7.9 mg/dL (8.5-10.5); Carbon Dioxide 22 mmol/L (22-29); Chloride 94 mmol/L (98-107); Glucose 91 mg/dL (65-115); Osmolality Calculated 280 mOsm/kg (285-295); Potassium 3.1 mmol/L (3.5-5.1); Sodium 131 mmol/L (136-145)
[2021-03-20 01:13] LABS: Urine Creatinine 72 mg/dL (39-259)
[2021-03-20 01:26] LABS: Creatinine 24 Hour Urine 518.4 mg/dL (955-2936); Total Volume Urine 720 ml
[2021-03-20 01:28] LABS: Total Volume, Urine 720 mL
[2021-03-20 01:51] LABS: Urine Total Protein 175.8 mg/24HR (0-150); Urine Total Protein 24 Hour 1265.8 mg/dL (0-150)
[2021-03-20] MEDS: ipratropium-albuterol 3 mL Neb INHALATION ×4 (03:23→20:37)
[2021-03-20] MEDS: heparin 5,000 unit/mL INJ 1 mL 5000 UNIT SUBCUT ×2 (04:00→17:24)
[2021-03-20 05:22] LABS: Basophils % 0.3 %; Eosinophils # 0.1 10^3/uL (0.0-0.8); Eosinophils % 0.3 %; Hematocrit 28.3 % (42.0-52.0); Hemoglobin 9.4 g/dL (11.7-16.6); Lymphocytes # 0.7 10^3/uL (0.8-4.8); Lymphocytes % 4.6 %; Mean Corpuscular HGB Conc 33.2 g/dL (30.0-36.0); Mean Corpuscular Hemoglobin 28.8 pg (28.0-34.0); Mean Corpuscular Volume 86.8 fl (80-94); Mean Platelet Volume 9.9 fL (7.4-10.4); Monocytes # 0.9 10^3/uL (0.2-0.9); Monocytes % 5.8 %; Neutrophils # 12.97 10^3/uL (1.8-7.7); Neutrophils % 88.2 %; Nucleated Red Blood Cells % 0 %; Platelet Count 146 10^3/cmm (130-400); Red Blood Count 3.26 10^6/uL (4.1-5.3); Red Cell Distribution Width 15.4 % (12.1-15.1); White Blood Count 14.7 10^3/uL (4.0-10.0)
[2021-03-20 05:34] LABS: INR 1.44 (0.8-1.2)
[2021-03-20 05:45] LABS: Alanine Aminotransferase 12 U/L (0-41); Albumin Level 3.4 g/dL (3.5-5.2); Alkaline Phosphatase 82 IU/L (40-130); Anion Gap 16.2 (5-19); Aspartate Amino Transferase 23 U/L (0-40); Blood Urea Nitrogen 33 mg/dL (8-23); Carbon Dioxide 24 mmol/L (22-29); Chloride 95 mmol/L (98-107); Globulin 2.6 g/dL (1.3-4.6); Glucose 113 mg/dL (65-115); Magnesium 1.8 mg/dL (1.7-2.3); Osmolality Calculated 282 mOsm/kg (285-295); Phosphorus 4.1 mg/dL (2.5-4.5); Potassium 3.2 mmol/L (3.5-5.1); Sodium 132 mmol/L (136-145); Total Bilirubin 2.3 mg/dL (0.15-1.2)
[2021-03-20 05:51] LABS: Cholesterol 75 mg/dL (0-200); HDL Cholesterol 25 mg/dL (60-100); LDL Cholesterol Calculated 38 mg/dL (50-129); LDL HDL Ratio 1.52 RATIO (0.00-3.22); Triglycerides 60 mg/dL (0-150)
[2021-03-20 06:13] LABS: NT Pro B Type Natriuretic Pept 30753 pg/mL (0-450)
--- NOTE | 2021-03-20 07:00 | ECG_ITS ---
[facility] Test Date: 2021-03-20 Pat Name: Den Bedolla Department: Room: ICU12 Gender: Male Reexaminer: : 1945 Requested By: Chriss Patel Order Number: [id number] Emmanuel MD: Mario Clark M.D. Measurements Intervals [place] Rate: 89 P: 81 DC: 120 QRS: 72 QRSD: 101 T: 64 QT: 321 QTc: 392 Interpretive Statements SINUS RHYTHM WITH OCCASIONAL VENTRICULAR PREMATURE COMPLEXES INCOMPLETE RIGHT BUNDLE BRANCH BLOCK [90+ ms QRS DURATION, TERMINAL R IN V1/V2, 40+ ms S IN I/aVL/V4/V5/V6] NONSPECIFIC ST & T-WAVE ABNORMALITY Compared to ECG 03/18/2021 22:36:12 Incomplete right bundle-branch block now present T-wave abnormality now present Myocardial infarct finding no longer present Electronically Signed On 03-21-2021 7:46:15 TAPE LIBRARIAN by Mario Clark M.D. [id number]
[2021-03-20 08:52] LABS: Glucose Point of Care 151 mg/dL (70-110)
[2021-03-20] MEDS: insulin lispro 100 unit/1 mL SUBCUT ×4 (09:04→22:11)
[2021-03-20] MEDS: lidocaine 1% 5 ML in potassium chloride premix 100 ML 25 ML IV (09:04)
[2021-03-20] MEDS: lactulose oral liq 20 gm/30 mL UDC PO (09:05)
[2021-03-20] MEDS: thiamine 100 mg Tablet PO (09:05)
[2021-03-20] MEDS: multivitamin therapeutic Tablet 1 TAB PO (09:05)
[2021-03-20] MEDS: folic acid 1 mg Tablet PO (09:05)
--- NOTE | 2021-03-20 10:26 | PM.PN ---
Subjective Subjective: Interval history: Den has no specific complaints today. He feels very weak, lethargic. Paracentesis was performed yesterday where just over 4 L of fluid was drained out. He still has significant lower extremity edema. Hemodynamics reviewed, remain quite soft. He is on some low-dose spironolactone with roughly 1 L of urine output noted. Vitals/I&O/Wt Last Vital Signs Temp 97.6 F 03/20/21 04:10 Pulse 95 03/20/21 10:00 Resp 17 03/20/21 10:00 BP 92/55 03/20/21 10:00 Pulse Ox 89 L 03/20/21 10:00 03/19/21 03/20/21 03/20/21 22:59 06:59 14:59 Intake Total 645 / 1090 705 / 1795 120 / 120 Output Total 550 / 1150 100 / 1250 Balance 95 / -60 605 / 545 120 / 120 Weight last 48 hrs Weight 97.522 kg Weight 97.976 kg Weight 92.986 kg Physical Exam Narrative: EXAM NARRATIVE: Constitutional: Awake, comfortable HEENT: Wet mucosa, no jvp, non icteric Lungs: Bilaterally clear without discernible wheeze, rales in all lung zones CVS: S1 S2, no murmurs Abdo: Soft, BS ok Ext 4: 2-3+ edema, peripheral perfusion with no cyanosis Neurological: Grossly non-focal Urinary Catheter Management^: Valadez: Cath Placed During This Visit: yes Reason for Continuing Indwelling Catheter: Accurate Measurement of Urinary Output in Critically Ill Patients Urinary Catheter Date of Insertion: 03/18/21 Urinary Catheter Time of Insertion: 18:34 Data : 03/20/21 04:48 03/20/21 04:48 Micro: Microbiology 03/19/21 00:05 Urine Culture - Preliminary Urine Catheterized 03/19/21 14:00 Gram Stain - Final Ankle - Peritoneal A&P Additional A&P Information 1. Acute kidney injury on chronic kidney disease Likely multifactorial i.e. not purely hepatorenal syndrome as urine sodium 38, however, I suspect there are some hepatorenal dynamics at play in combination with cardiorenal in combination with renal hypoperfusion from labile hemodynamics. Continue albumin, will add midodrine and octreotide today. A.m. labs Continue low-dose diuretics High risk for decompensation Avoid usual nephrotoxic agents Dose medications for GFR less than 30 2. Hemodynamics Soft hemodynamics at this time consistent with both advanced liver and heart disease. Currently on metoprolol, presented with atrial fibrillation, continue metoprolol for now, will add midodrine as mentioned. 3. Chemistry Low sodium, consistent with hypervolemic hyponatremia secondary to both liver and heart disease, kidney disease and also not helping. Potassium actively being replaced. Corrected calcium within range. 4. ID WBCs in the peritoneal fluid noted to be elevated 287, empirical coverage with Zosyn. Cultures pending. Case discussed with bedside RN and Dr. Jorge Armstrong MD Nephrology [phone] Patient seen and examined via telemedicine, with the assistance of the bedside RN > 25 min spent in evaluation and mgmt of patient Attestations Medical Necessity Statement*: ELZBIETA eval Coding Level of Care Code Acute Intranet Support for Kusum Christine
[2021-03-20] MEDS: midodrine 5 mg TABLET 10 MG PO ×3 (10:42→22:10)
[2021-03-20] MEDS: octreotide 100 mcg/mL SDV 200 MCG SUBCUT ×3 (10:45→22:16)
[2021-03-20] MEDS: piperacillin-tazobactam 3.375 GM in sodium chloride 0.9% (plus) 50 ML IV ×2 (11:27→17:44)
[2021-03-20 12:06] LABS: Glucose Point of Care 146 mg/dL (70-110)
--- NOTE | 2021-03-20 16:16 | PM.PN ---
Subjective Subjective: Interval history: Patient was seen and examined this morning, fells tired, blood pressure has been soft today, urine output in the last 24 hours 650cc. Serum creatinine is slowly improving. Medications: Reviewed: Yes Medication Review Details: Current Medications Acetaminophen (Acetaminophen 325 Mg Tablet) 650 mg PO Q6H PRN PRN Reason: Mild/Mod Pain Or Temp >/= 101 Albuterol/Ipratropium (Ipratropium-Albuterol 3 Ml Neb) 3 ml INHALATION Q6H YAW Bisacodyl (Bisacodyl 5 Mg Tablet) 10 mg PO DAILY PRN; Protocol PRN Reason: Constipation (see protocol) Dextrose (Dextrose 50% Syringe 50 Ml) 25 ml IVP ONCE PRN; Protocol PRN Reason: hypoglycemia protocol Dextrose (Dextrose 50% Syringe 50 Ml) 50 ml IVP PRN PRN; Protocol PRN Reason: hypoglycemia protocol Folic Acid (Folic Acid 1 Mg Tablet) 1 mg PO DAILY YAW Glucagon (Glucagon 1 Mg/Ml Inj 1 Ml) 1 mg IM ONCE PRN; Protocol PRN Reason: Adult Acute Hypoglycemia Prot. Guaifenesin/Dextromethorphan (Guaifenesin-Dextromethorphan Udc 10 Ml) 10 ml PO Q6H PRN PRN Reason: COUGH Heparin Sodium (Porcine) (Heparin 5,000 Unit/Ml Inj 1 Ml) 5,000 unit SUBCUT Q12H YAW Dextrose (D5w) 500 mls @ 100 mls/hr IV ONCE PRN; Protocol PRN Reason: Adult Acute Hypoglycemia Prot Albumin Human (Albumin) 25 gm in 100 mls @ 60 mls/hr IV Q8H [facility] Last Infusion: 03/19/21 03:28 Dose: Infused Documented by: Lidocaine HCl 5 ml/ Potassium (Chloride) 105 mls @ 25 mls/hr IV ONCE ONE Stop: 03/19/21 10:46 Last Admin: 03/19/21 06:48 Dose: 25 mls/hr Documented by: Insulin Human Lispro (Insulin Lispro 100 Unit/1 Ml) 0 unit SUBCUT WM&BEDTIME [facility]; Protocol Last Admin: 03/19/21 00:09 Dose: Not Given Documented by: Lactulose (Lactulose Oral Liq 20 Gm/30 Ml Udc) 20 gm PO DAILY [facility] Metoprolol Tartrate (Metoprolol Tartrate 1 Mg/1 Ml Sdv 5 Ml) 5 mg IVP Q4H PRN PRN Reason: TACHYCARDIA Metoprolol Tartrate (Metoprolol Tartrate 25 Mg Tablet) 12.5 mg PO BID [facility] Last Admin: 03/18/21 20:08 Dose: 12.5 mg Documented by: Multivitamins Therapeutic (Multivitamin Therapeutic Tablet) 1 tab PO DAILY [facility] Ondansetron HCl (Ondansetron 2 Mg/Ml Sdv 2 Ml) 4 mg IVP Q8H PRN PRN Reason: vomiting, or N/V if npo Pantoprazole Sodium (Pantoprazole 40 Mg Sdv) 40 mg IVP Q24H [facility] Last Admin: 03/18/21 20:07 Dose: 40 mg Documented by: Thiamine Mononitrate (Thiamine 100 Mg Tablet) 100 mg PO DAILY [facility] Vitals/I&O/Wt Last Vital Signs Temp 97.7 F 03/20/21 15:30 Pulse 86 03/20/21 15:30 Resp 26 H 03/20/21 15:30 BP 94/56 03/20/21 15:30 Pulse Ox 90 03/20/21 15:30 03/20/21 03/20/21 03/20/21 06:59 14:59 22:59 Intake Total 705 / 1795 565 / 565 50 / 615 Output Total 100 / 1250 Balance 605 / 545 565 / 565 50 / 615 Weight last 48 hrs Weight 97.522 kg Weight 97.976 kg Physical Exam Const: COMMON NORMALS: patient oriented x3 HENMT: COMMON NORMALS: normocephalic and atraumatic HEAD & SCALP: normocephalic and atraumatic Resp: OTHER: Bilateral basal crackles present, bilateral wheezing present in both lung fritz Cardio: OTHER: S1-S2 variable intensity, irregularly irregular rhythm GI: COMMON NORMALS: Soft to palpation and non-tender AUSCULTATION: Yes normoactive bowel sounds PALPATION: Yes Soft to palpation RECTAL EXAM: Yes deferred OTHER: Grossly distended abdomen with fluid thrills Extremity: NARRATIVE EXTREMITY EXAM: 2+ bilateral pitting edema present in both the extremities up to level of knee Neuro: COMMON NORMALS: patient oriented x3 Urinary Catheter Management^: Valadez: Cath Placed During This Visit: yes Reason for Continuing Indwelling Catheter: Accurate Measurement of Urinary Output in Critically Ill Patients Urinary Catheter Date of Insertion: 03/18/21 Urinary Catheter Time of Insertion: 18:34 Data : 03/20/21 04:48 03/20/21 04:48 Micro: Microbiology 03/19/21 00:05 Urine Culture - Preliminary Urine Catheterized 03/19/21 14:00 Gram Stain - Final Ankle - Peritoneal A&P Assessment and plan (1) Acute kidney injury superimposed on CKD: Status: Acute (2) Hepatorenal syndrome: Status: Acute (3) Alcoholism: Status: Acute (4) Anasarca: Status: Acute (5) Diastolic CHF: Status: Acute (6) Cirrhosis of liver: Status: Acute (7) Ascites: Status: Acute (8) Microscopic hematuria: Status: Acute (9) Type 2 diabetes mellitus with diabetic neuropathy, without long-term current use of insulin: Status: Acute (10) Hypokalemia: Status: Acute (11) Hypomagnesemia: Status: Acute (12) A-fib: Status: Acute (13) Hyponatremia: Status: Acute Additional A&P Information 75 year old male with post medical history of COPD , diabetes , chronic smoker, history of alcoholism,HFpEF, decompensated liver cirrhosis secondary to alcohol abuse, chronic hyponatremia, CKD stage III, Came in with chief complaint of generalized weakness fatigue, cough, palpitation,wheezing, shortness of breath going on for last couple of days.He was also complaining of worsening abdominal swelling,worsening bilateral lower extremity swelling. # ELZBIETA ON CKD stage III: Likely 2/2 TO HRS, +/- CRS from dialstolic dysfunction. Current plan is to fluid restrict the patient, continue with IV albumin. Midodrine and octreotide has been added. Appreciate renal inputs #Severe hypokalemia: Likely secondary to recent diuretic use. Monitor and replace potassium. Low dose spironlactone #Hypomagnesemia: Likely secondary to alcohol use as well as diuretic, monitor and replace serum magnesium #Chronic hyponatremia: Secondary to decompensated liver cirrhosis, diuretics, as well as Heart failure continue to fluid restrict the patient #HFpEF : Continue with fluid restriction, Lasix as needed. Spironolactone dose decreased to 12. 5 mg po daily #New onset A. fib: Likely secondary to severe electrolyte abnormality. Metoprolol tartrate 12.5 mg twice daily. Will hold off on Ac for now given down trending Hb. FOBT #Gross ascites: S/P Ultrasound guided paracentesis with removal of 4Ls ascitic fluid. Peritoneal fluid WBC: 287. Peritoneal fluid culture awaited. Follow blood culture Empirically on Zosyn #Anasarca: Secondary to liver cirrhosis and heart failure #Diabetes: SSI, carb consistent diet, monitor fingerstick glucose #CODE STATUS: Full code #DVT prophylaxis: subcu heparin. #Disposition: Discharged home Attestations Medical Necessity Statement*: Patient needs to be in hospital for management of above defined problems. Time Spent in Patient Care: Greater than 35 minutes (>than 50% of time spent in counselling and/or direct pt care on unit). Critical Care Time: Critical Care Time (min): 40 Other Attestations: The high probability of a clinically significant, sudden or life threatening deterioration of the patient's [] system(s) required my full and direct attention, intervention and personal management. The critical care time is as shown. This time is in addition to time spent performing any reported procedures but includes the following: [x] Data and vital sign review and interpretation [x] Patient assessment, examination and intervention [x] Documentation [x] Medication orders and management Coding Level of Care Code Acute Child Psychometrist for g Fwd Diagnoses Acute kidney injury superimposed on CKD N17.9; N18.9 Hepatorenal syndrome K76.7 Alcoholism F10.20 Anasarca R60.1 Diastolic CHF I50.30 Cirrhosis of liver K74.60 Ascites R18.8 Microscopic hematuria R31.29 Type 2 diabetes mellitus with diabetic neuropathy, without long-term current use of insulin E11.40 Hypokalemia E87.6 Hypomagnesemia E83.42 A-fib I48.91 Hyponatremia E87.1
[2021-03-20 17:15] LABS: Glucose Point of Care 167 mg/dL (70-110)
[2021-03-20] MEDS: pantoprazole 40 mg SDV IVP (17:23)
[2021-03-20] MEDS: metoprolol tartrate 25 mg Tablet 12.5 MG PO (17:25)
[2021-03-20] MEDS: spironolactone 25 mg Tablet 12.5 MG PO (17:25)
[2021-03-20 20:34] LABS: Glucose Point of Care 190 mg/dL (70-110)
[2021-03-21] VITALS (30 sets, daily range): BP systolic 82–152; BP diastolic 41–122; PULSE 71–92; RESP 15–32; TEMP 36.1–36.6; O2SAT 75–93; BMI 30.6
[2021-03-21] MEDS: piperacillin-tazobactam 3.375 GM in sodium chloride 0.9% (plus) 50 ML IV ×3 (02:27→18:22)
[2021-03-21] MEDS: ipratropium-albuterol 3 mL Neb INHALATION ×4 (02:51→20:20)
[2021-03-21 04:24] LABS: Basophils % 0.3 %; Eosinophils % 0.2 %; Hematocrit 28.7 % (42.0-52.0); Hemoglobin 9.1 g/dL (11.7-16.6); Lymphocytes # 1.4 10^3/uL (0.8-4.8); Lymphocytes % 9.9 %; Mean Corpuscular HGB Conc 31.7 g/dL (30.0-36.0); Mean Corpuscular Hemoglobin 28.3 pg (28.0-34.0); Mean Corpuscular Volume 89.1 fl (80-94); Mean Platelet Volume 9.6 fL (7.4-10.4); Monocytes # 0.9 10^3/uL (0.2-0.9); Monocytes % 6.2 %; Neutrophils # 11.65 10^3/uL (1.8-7.7); Neutrophils % 82.6 %; Nucleated Red Blood Cells % 0 %; Platelet Count 163 10^3/cmm (130-400); Red Blood Count 3.22 10^6/uL (4.1-5.3); Red Cell Distribution Width 15.7 % (12.1-15.1); White Blood Count 14.1 10^3/uL (4.0-10.0)
[2021-03-21 05:01] LABS: Alanine Aminotransferase 10 U/L (0-41); Alkaline Phosphatase 73 IU/L (40-130); Anion Gap 18.2 (5-19); Aspartate Amino Transferase 21 U/L (0-40); Blood Urea Nitrogen 42 mg/dL (8-23); Calcium 8.3 mg/dL (8.5-10.5); Carbon Dioxide 21 mmol/L (22-29); Chloride 93 mmol/L (98-107); Globulin 2.4 g/dL (1.3-4.6); Glucose 112 mg/dL (65-115); Osmolality Calculated 279 mOsm/kg (285-295); Phosphorus 6.7 mg/dL (2.5-4.5); Potassium 3.2 mmol/L (3.5-5.1); Sodium 129 mmol/L (136-145); Total Bilirubin 2.3 mg/dL (0.15-1.2); Total Protein 6.4 g/dL (6.6-8.7)
[2021-03-21 05:22] LABS: NT Pro B Type Natriuretic Pept 53418 pg/mL (0-450)
[2021-03-21] MEDS: heparin 5,000 unit/mL INJ 1 mL 5000 UNIT SUBCUT ×2 (06:23→16:55)
[2021-03-21 07:45] LABS: Glucose Point of Care 112 mg/dL (70-110)
[2021-03-21] MEDS: spironolactone 25 mg Tablet 12.5 MG PO (09:06)
[2021-03-21] MEDS: folic acid 1 mg Tablet PO (09:07)
[2021-03-21] MEDS: multivitamin therapeutic Tablet 1 TAB PO (09:07)
[2021-03-21] MEDS: metoprolol tartrate 25 mg Tablet 12.5 MG PO (09:08)
[2021-03-21] MEDS: lactulose oral liq 20 gm/30 mL UDC PO (09:08)
[2021-03-21] MEDS: midodrine 5 mg TABLET 10 MG PO ×2 (09:08→14:15)
[2021-03-21] MEDS: potassium chloride ER 20 mEq Tablet 40 MEQ PO (09:09)
[2021-03-21] MEDS: thiamine 100 mg Tablet PO (09:12)
[2021-03-21] MEDS: octreotide 100 mcg/mL SDV 200 MCG SUBCUT (09:37)
--- NOTE | 2021-03-21 09:43 | PC.SOCIAL ---
IMM update IMM updated with patient. Verbalized an understanding. Copy Pg 2 provided. Initialled, dated, timed, and placed in chart.
--- NOTE | 2021-03-21 10:47 | PC.CHAP ---
Pastoral Care Encounter/Spiritual Assessment Type of Contact [] Declined mail opener visit [] Patient/Family/Request visit [] Outpatient visit [] Follow-up visit [] Physician referral [] Code/Alert [XX] Routine visit [] Staff referral [] Actively dying [XX] Patient sleeping [] Family support [] [] Out of room [] Palliative care [] [] Receiving care in room [] Pre-surgical visit [] Trauma [] Long length of stay [XX] ICU visit [] Other: Relational/Emotional Strength [] Patient feels connected with others/family/visitors/staff [] Distress [] Loneliness/isolation [] Abandonment Spirituality of Patient [] Person of Allison [] Attends Scientologist of their Allison [] Believes in Prayer [] Reads Bible or Presybeterian materials [] There are Spiritual issues to be addressed Secretary Book Keeper Interventions [] Prayer [] Active listening [] Non-anxious presence [] Spiritual/emotional support [] Crisis/trauma care [] Spiritual counseling [] Bereavement support [] Provided bereavement packet [] Provided Bible/devotional materials [] Provided toy/stuffed animal, coloring book to patient or family member [] Provided Communion [] Anointing/[place] [] Salvation [] Completed spiritual assessment [] Other: Impact on Illness or Injury [] Angry [] Fearful [] Anxious [] Often cries [] Exhaustion [] Unable to work [] Unable to attend mandaen [] Unable to walk/stand [] Unable to read [] Unable to drive [] Unable to eat/drink [] Unable to sleep [] Unable to be with family [] Patient intubated [] Other: Summary Time spent with patient
[2021-03-21 12:29] LABS: Glucose Point of Care 109 mg/dL (70-110)
--- NOTE | 2021-03-21 13:29 | XRR_ITS ---
PROCEDURE INFORMATION: Exam: XR Chest Exam date and time: 03/21/2021 1:29 PM Age: 75 years old Clinical indication: Angina; Patient HX: New onset of afib; Additional info: SOB TECHNIQUE: Imaging protocol: XR of the chest. Views: 1 view. COMPARISON: CR XR chest 1V portable [id number] 03/18/2021 2:06 PM FINDINGS: Lungs: Hyperinflated lungs and coarsening of the lung parenchyma. Increased interstitial opacities throughout both lungs. Pleural spaces: Potential trace pleural effusions versus bibasilar scar. No pneumothorax. Heart/Mediastinum: Similar cardiomegaly. Bones/joints: Visualized osseous structures are intact. XR/XR chest 1V portable [id number] IMPRESSION: Increased interstitial opacities throughout both lungs compared to prior study 03/18/2021. This most likely represents interstitial pulmonary edema as opposed to multifocal infiltrates or worsening fibrosis given clinical history and short interval change.
[2021-03-21] MEDS: lidocaine 1% 5 ML in potassium chloride premix 100 ML 25 ML IV ×3 (13:58→17:26)
[2021-03-21] MEDS: FUROsemide 10 mg/mL SDV 4mL 40 MG IVP (14:15)
[2021-03-21] MEDS: acetylcysteine 200 mg/mL SDV 4 mL INHALATION ×2 (15:00→20:20)
[2021-03-21] MEDS: vancomycin 1,000 MG in sodium chloride 0.9% 250 ML 250 MG IV (15:58)
[2021-03-21] MEDS: pantoprazole 40 mg SDV IVP (16:54)
[2021-03-21 17:13] LABS: Glucose Point of Care 131 mg/dL (70-110)
--- NOTE | 2021-03-21 18:22 | PM.PN ---
Subjective Subjective: Interval history: Patient was seen and examined this morning, he was extremely, drowsy today, urine output has decreased, serum creatinine is worsened, x-ray chest: Suggestive of pulmonary vascular congestion, on auscultation he sounds extremely wet, hyponatremia has worsened, proBNP is significantly increased, blood pressure has been soft. Medications: Reviewed: Yes Medication Review Details: Current Medications Acetaminophen (Acetaminophen 325 Mg Tablet) 650 mg PO Q6H PRN PRN Reason: Mild/Mod Pain Or Temp >/= 101 Albuterol/Ipratropium (Ipratropium-Albuterol 3 Ml Neb) 3 ml INHALATION Q6H YAW Bisacodyl (Bisacodyl 5 Mg Tablet) 10 mg PO DAILY PRN; Protocol PRN Reason: Constipation (see protocol) Dextrose (Dextrose 50% Syringe 50 Ml) 25 ml IVP ONCE PRN; Protocol PRN Reason: hypoglycemia protocol Dextrose (Dextrose 50% Syringe 50 Ml) 50 ml IVP PRN PRN; Protocol PRN Reason: hypoglycemia protocol Folic Acid (Folic Acid 1 Mg Tablet) 1 mg PO DAILY YAW Glucagon (Glucagon 1 Mg/Ml Inj 1 Ml) 1 mg IM ONCE PRN; Protocol PRN Reason: Adult Acute Hypoglycemia Prot. Guaifenesin/Dextromethorphan (Guaifenesin-Dextromethorphan Udc 10 Ml) 10 ml PO Q6H PRN PRN Reason: COUGH Heparin Sodium (Porcine) (Heparin 5,000 Unit/Ml Inj 1 Ml) 5,000 unit SUBCUT Q12H YAW Dextrose (D5w) 500 mls @ 100 mls/hr IV ONCE PRN; Protocol PRN Reason: Adult Acute Hypoglycemia Prot Albumin Human (Albumin) 25 gm in 100 mls @ 60 mls/hr IV Q8H [facility] Last Infusion: 03/19/21 03:28 Dose: Infused Documented by: Lidocaine HCl 5 ml/ Potassium (Chloride) 105 mls @ 25 mls/hr IV ONCE ONE Stop: 03/19/21 10:46 Last Admin: 03/19/21 06:48 Dose: 25 mls/hr Documented by: Insulin Human Lispro (Insulin Lispro 100 Unit/1 Ml) 0 unit SUBCUT WM&BEDTIME [facility]; Protocol Last Admin: 03/19/21 00:09 Dose: Not Given Documented by: Lactulose (Lactulose Oral Liq 20 Gm/30 Ml Udc) 20 gm PO DAILY [facility] Metoprolol Tartrate (Metoprolol Tartrate 1 Mg/1 Ml Sdv 5 Ml) 5 mg IVP Q4H PRN PRN Reason: TACHYCARDIA Metoprolol Tartrate (Metoprolol Tartrate 25 Mg Tablet) 12.5 mg PO BID [facility] Last Admin: 03/18/21 20:08 Dose: 12.5 mg Documented by: Multivitamins Therapeutic (Multivitamin Therapeutic Tablet) 1 tab PO DAILY [facility] Ondansetron HCl (Ondansetron 2 Mg/Ml Sdv 2 Ml) 4 mg IVP Q8H PRN PRN Reason: vomiting, or N/V if npo Pantoprazole Sodium (Pantoprazole 40 Mg Sdv) 40 mg IVP Q24H [facility] Last Admin: 03/18/21 20:07 Dose: 40 mg Documented by: Thiamine Mononitrate (Thiamine 100 Mg Tablet) 100 mg PO DAILY [facility] Vitals/I&O/Wt Last Vital Signs Temp 97 F L 03/21/21 13:00 Pulse 77 03/21/21 15:04 Resp 16 03/21/21 15:03 BP 96/47 03/21/21 14:00 Pulse Ox 91 03/21/21 15:03 03/21/21 03/21/21 03/21/21 06:59 14:59 22:59 Intake Total 540 / 1785 100 / 100 123.333 / 223.333 Output Total 110 / 810 Balance 430 / 975 100 / 100 123.333 / 223.333 Weight last 48 hrs Weight 96.785 kg Weight 97.522 kg Physical Exam Const: COMMON NORMALS: patient oriented x3 HENMT: COMMON NORMALS: normocephalic and atraumatic HEAD & SCALP: normocephalic and atraumatic Resp: OTHER: Bilateral diffuse crackles in both the lungs fritz, bilateral wheezing present in both lung fritz Cardio: OTHER: S1-S2 variable intensity, irregularly irregular rhythm GI: COMMON NORMALS: Soft to palpation and non-tender AUSCULTATION: Yes normoactive bowel sounds PALPATION: Yes Soft to palpation RECTAL EXAM: Yes deferred OTHER: Grossly distended abdomen with fluid thrills Extremity: NARRATIVE EXTREMITY EXAM: 2+ bilateral pitting edema present in both the extremities up to level of knee Neuro: COMMON NORMALS: patient oriented x3 Urinary Catheter Management^: Valadez: Cath Placed During This Visit: yes Reason for Continuing Indwelling Catheter: Accurate Measurement of Urinary Output in Critically Ill Patients Urinary Catheter Date of Insertion: 03/18/21 Urinary Catheter Time of Insertion: 18:34 Data : 03/21/21 03:47 03/21/21 03:47 Micro: Microbiology 03/20/21 17:03 Blood Culture - Preliminary Blood NEGATIVE TO DATE 03/20/21 17:03 Blood Culture - Preliminary Blood NEGATIVE TO DATE 03/19/21 14:00 Gram Stain - Final Ankle - Peritoneal Body Fluid Culture - Preliminary 03/19/21 00:05 Urine Culture - Final Urine Catheterized A&P Assessment and plan (1) Acute kidney injury superimposed on CKD: Status: Acute (2) Hepatorenal syndrome: Status: Acute (3) Alcoholism: Status: Acute (4) Anasarca: Status: Acute (5) Diastolic CHF: Status: Acute (6) Cirrhosis of liver: Status: Acute (7) Ascites: Status: Acute (8) Microscopic hematuria: Status: Acute (9) Type 2 diabetes mellitus with diabetic neuropathy, without long-term current use of insulin: Status: Acute (10) Hypokalemia: Status: Acute (11) Hypomagnesemia: Status: Acute (12) A-fib: Status: Acute (13) Hyponatremia: Status: Acute (14) Shock: Status: Acute Additional A&P Information 75 year old male with post medical history of COPD , diabetes , chronic smoker, history of alcoholism,HFpEF, decompensated liver cirrhosis secondary to alcohol abuse, chronic hyponatremia, CKD stage III, Came in with chief complaint of generalized weakness fatigue, cough, palpitation,wheezing, shortness of breath going on for last couple of days.He was also complaining of worsening abdominal swelling,worsening bilateral lower extremity swelling. # ELZBIETA ON CKD stage III: Likely 2/2 TO HRS, +/- CRS from dialstolic dysfunction. Current plan is to fluid restrict the patient, continue with IV albumin. Midodrine and octreotide has been added. Appreciate renal inputs Shock : Combination of decompensated heart failure as well as possible underlying sepsis secondary to pneumonia. Leukocytosis, hypotension. Blood cultures Lactic acid Procalcitonin Peritoneal fluid culture Continue Vanco and Zosyn #Severe hypokalemia: Likely secondary to recent diuretic use. Monitor and replace potassium. Low dose spironlactone #Hypomagnesemia: Likely secondary to alcohol use as well as diuretic, monitor and replace serum magnesium #Chronic hyponatremia: Secondary to decompensated liver cirrhosis, diuretics, as well as Heart failure continue to fluid restrict the patient #HFpEF : Decompensated heart failure with preserved ejection fraction. Lasix 40 mg IV every 12 hours daily Intake output charting Daily weight k>4, mg>2 Spironolactone was discontinued as the patient is hypotensive #New onset A. fib: Likely secondary to severe electrolyte abnormality. Heart rate is well controlled Metoprolol tartrate 12.5 mg twice daily currently on hold Will hold off on Ac for now given down trending Hb. FOBT #Gross ascites: S/P Ultrasound guided paracentesis with removal of 4Ls ascitic fluid. Peritoneal fluid WBC: 287. Peritoneal fluid culture awaited. Follow blood culture Peritoneal fluid culture Empirically on Zosyn #Anasarca: Secondary to liver cirrhosis and heart failure #Diabetes: SSI, carb consistent diet, monitor fingerstick glucose #CODE STATUS: Full code #DVT prophylaxis: subcu heparin. #Disposition: Discharged home Attestations Medical Necessity Statement*: Patient is to be in hospital for management of above defined problems Time Spent in Patient Care: Greater than 35 minutes Critical Care Time: The high probability of a clinically significant, sudden or life threatening deterioration of the patient's [] system(s) required my full and direct attention, intervention and personal management. The critical care time is as shown. This time is in addition to time spent performing any reported procedures but includes the following: [x] Data and vital sign review and interpretation [x] Patient assessment, examination and intervention [x] Documentation [x] Medication orders and management Critical Care Time (min): 45 Coding Level of Care Code Acute Nurse Discharge for Chg Fwd Exam Expanded Problem Focused Diagnoses Acute kidney injury superimposed on CKD N17.9; N18.9 Hepatorenal syndrome K76.7 Alcoholism F10.20 Anasarca R60.1 Diastolic CHF I50.30 Cirrhosis of liver K74.60 Ascites R18.8 Microscopic hematuria R31.29 Type 2 diabetes mellitus with diabetic neuropathy, without long-term current use of insulin E11.40 Hypokalemia E87.6 Hypomagnesemia E83.42 A-fib I48.91 Hyponatremia E87.1 Shock R57.9
--- NOTE | 2021-03-21 18:27 | P.PN_ITS ---
Subjective Subjective: Interval history: I am seeing him in follow up for his renal failure. No new issues overnight Medications: Reviewed: Yes Vitals/I&O/Wt Last Vital Signs Temp 97 F L 03/21/21 13:00 Pulse 77 03/21/21 15:04 Resp 16 03/21/21 15:03 BP 96/47 03/21/21 14:00 Pulse Ox 91 03/21/21 15:03 03/21/21 03/21/21 03/21/21 06:59 14:59 22:59 Intake Total 540 / 1785 100 / 100 123.333 / 223.333 Output Total 110 / 810 Balance 430 / 975 100 / 100 123.333 / 223.333 Weight last 48 hrs Weight 96.785 kg Weight 97.522 kg Physical Exam Const: COMMON NORMALS: no acute distress GENERAL APPEARANCE: comfortable and lethargic ORIENTATION/CONSCIOUSNESS: Yes lethargic Resp: AUSCULTATION: crackles Cardio: COMMON NORMALS: S1 normal heart sound present and S2 normal heart sound present HEART SOUNDS: S1 normal heart sound present and S2 normal heart sound present GI: AUSCULTATION: Yes normoactive bowel sounds Extremity: GENERAL: Yes edema Neuro: SENSORIUM/ORIENTATION: Yes lethargic Skin: COMMON NORMALS: no rashes or lesions noted GENERAL SKIN EXAM: no ra shes or lesions noted Urinary Catheter Management^: Valadez: Cath Placed During This Visit: yes Reason for Continuing Indwelling Catheter: Accurate Measurement of Urinary Output in Critically Ill Patients Urinary Catheter Date of Insertion: 03/18/21 Urinary Catheter Time of Insertion: 18:34 Data : 03/21/21 03:47 03/21/21 03:47 Micro: Microbiology 03/20/21 17:03 Blood Culture - Preliminary Blood NEGATIVE TO DATE 03/20/21 17:03 Blood Culture - Preliminary Blood NEGATIVE TO DATE 03/19/21 14:00 Gram Stain - Final Ankle - Peritoneal Body Fluid Culture - Preliminary 03/19/21 00:05 Urine Culture - Final Urine Catheterized A&P Assessment and plan (1) Acute kidney injury superimposed on CKD: Kidney function continues to get worse. D/w pt's family about dialysis in future if kidney function does not improve. As per hospitalist() family was not interested in dialysis Status: Acute (2) Hyponatremia: Will monitor Status: Acute (3) Congestive heart failure: Ok to use lasix if chest x ray shows fluid overload Status: Acute (4) Acidosis: If persistent will add sodium bicarbonate supplements Status: Acute (5) Anemia: Monitor hb Status: Acute (6) Hypokalemia: Will replace if k is below 3 Status: Acute Attestations Medical Necessity Statement*: Renal failure Coding Level of Care Code Acute Loading Shovel Oiler for g Fwd Diagnoses Acute kidney injury superimposed on CKD N17.9; N18.9 Hyponatremia E87.1 Congestive heart failure I50.9 Acidosis E87.2 Anemia D64.9 Hypokalemia E87.6
[2021-03-21 19:34] LABS: Ammonia 91 umol/L (16-60)
[2021-03-21 21:23] LABS: Glucose Point of Care 106 mg/dL (70-110)
[2021-03-21] MEDS: FUROsemide 10 mg/mL SDV 10mL 80 MG IVP (22:56)
[2021-03-22] VITALS (21 sets, daily range): BP systolic 69–102; BP diastolic 34–63; PULSE 74–87; RESP 11–23; TEMP 35.5–36.4; O2SAT 87–94; BMI 30.4
[2021-03-22] MEDS: acetylcysteine 200 mg/mL SDV 4 mL INHALATION ×3 (02:27→14:15)
[2021-03-22] MEDS: ipratropium-albuterol 3 mL Neb INHALATION ×3 (02:27→14:15)
[2021-03-22] MEDS: FUROsemide 10 mg/mL SDV 4mL 40 MG IVP (04:07)
[2021-03-22] MEDS: heparin 5,000 unit/mL INJ 1 mL 5000 UNIT SUBCUT (04:07)
[2021-03-22] MEDS: piperacillin-tazobactam 3.375 GM in sodium chloride 0.9% (plus) 50 ML IV (05:07)
[2021-03-22 06:09] LABS: Basophils # 0.1 10^3/uL (0.0-0.1); Basophils % 0.4 %; Hematocrit 34.5 % (42.0-52.0); Hemoglobin 10.5 g/dL (11.7-16.6); Lymphocytes # 0.8 10^3/uL (0.8-4.8); Lymphocytes % 4.5 %; Mean Corpuscular HGB Conc 30.4 g/dL (30.0-36.0); Mean Corpuscular Hemoglobin 28.8 pg (28.0-34.0); Mean Corpuscular Volume 94.5 fl (80-94); Mean Platelet Volume 10.4 fL (7.4-10.4); Monocytes # 1.3 10^3/uL (0.2-0.9); Monocytes % 7.1 %; Neutrophils # 15.51 10^3/uL (1.8-7.7); Neutrophils % 85.5 %; Nucleated Red Blood Cells % 0 %; Platelet Count 221 10^3/cmm (130-400); Red Blood Count 3.65 10^6/uL (4.1-5.3); Red Cell Distribution Width 15.8 % (12.1-15.1); White Blood Count 18.1 10^3/uL (4.0-10.0)
[2021-03-22 06:33] LABS: Alanine Aminotransferase 35 U/L (0-41); Albumin Level 4.3 g/dL (3.5-5.2); Alkaline Phosphatase 80 IU/L (40-130); Aspartate Amino Transferase 112 U/L (0-40); Blood Urea Nitrogen 53 mg/dL (8-23); Calcium 8.4 mg/dL (8.5-10.5); Carbon Dioxide 12 mmol/L (22-29); Chloride 94 mmol/L (98-107); Globulin 2.5 g/dL (1.3-4.6); Glucose 84 mg/dL (65-115); Osmolality Calculated 288 mOsm/kg (285-295); Sodium 132 mmol/L (136-145); Total Bilirubin 4.2 mg/dL (0.15-1.2); Total Protein 6.8 g/dL (6.6-8.7)
[2021-03-22 06:36] LABS: Anion Gap 31.3 (5-19); Potassium 5.3 mmol/L (3.5-5.1)
--- NOTE | 2021-03-22 06:59 | PC.NURSE ---
Pt appeared more lethargic, confused, and generally sicker when coming on shift. Pt had been started on levophed during day shift, due to blood pressure issues. Levophed needs continued to increase throughout this shift, from 6 mcg to 15 mcg/min. Confusion increased this shift, as alertness and orientation decreased greatly. Family arrived at the hospital approximately 2200, after discussing the patient's critical deconditioning and imminent . Daughter, Amber, brought up the idea of going making him comfortable, and not making him do all of this. Family stayed at the bedside until about 01:30, and reported they would be back during the day to confirm comfort care orders. Pt continued to decline, and family was notified approximately 0620. They declined bipap for airway and oxygen delivery, and said they would be to the hospital in about and hour to say their goodbyes, and start comfort measures. Dr. Rizo informed of pt's condition, and family's desire to initiate comfort measures. Dr. Rizo confirmed family's wishes and began inputting orders.
[2021-03-22 07:43] LABS: Glucose Point of Care 98 mg/dL (70-110)
[2021-03-22] MEDS: FUROsemide 10 mg/mL SDV 10mL 80 MG IVP (08:00)
[2021-03-22] MEDS: bumetanide 0.25 mg/mL SDV 10 mL 4 MG IVP (09:49)
[2021-03-22] MEDS: bumetanide 25 MG in empty flexible container 1 EACH 8 MG IV (09:50)
[2021-03-22] MEDS: morphine 10 mg/0.5 mL oral liq UD SUBLINGUAL (09:59)
--- NOTE | 2021-03-22 12:30 | PC.NURSE ---
Patient only has one IV. Family request no more IVs at this time. Unable to give some IV medications. Dr. Patel aware
--- NOTE | 2021-03-22 13:33 | PC.NURSE ---
Family requesting comfort care.
[2021-03-22] MEDS: morphine 4 mg/mL SDV 1 mL IVP (15:56)
--- NOTE | 2021-03-22 16:03 | PC.NURSE ---
Patient made full comfort measures per family's request. Multiple family members at bedside. Medications turned off. NRB switched to 2lnc.
--- NOTE | 2021-03-22 16:05 | P.PN_ITS ---
Subjective Subjective: Interval history: Patient was seen and examined this morning, he was extremely, drowsy today, urine output has decreased, serum creatinine is worsened, x-ray chest: Suggestive of pulmonary vascular congestion, on auscultation he sounds extremely wet, hyponatremia has worsened, proBNP is significantly increased, blood pressure has been soft. Medications: Reviewed: Yes Medication Review Details: Current Medications Acetaminophen (Acetaminophen 325 Mg Tablet) 650 mg PO Q6H PRN PRN Reason: Mild/Mod Pain Or Temp >/= 101 Albuterol/Ipratropium (Ipratropium-Albuterol 3 Ml Neb) 3 ml INHALATION Q6H YAW Bisacodyl (Bisacodyl 5 Mg Tablet) 10 mg PO DAILY PRN; Protocol PRN Reason: Constipation (see protocol) Dextrose (Dextrose 50% Syringe 50 Ml) 25 ml IVP ONCE PRN; Protocol PRN Reason: hypoglycemia protocol Dextrose (Dextrose 50% Syringe 50 Ml) 50 ml IVP PRN PRN; Protocol PRN Reason: hypoglycemia protocol Folic Acid (Folic Acid 1 Mg Tablet) 1 mg PO DAILY YAW Glucagon (Glucagon 1 Mg/Ml Inj 1 Ml) 1 mg IM ONCE PRN; Protocol PRN Reason: Adult Acute Hypoglycemia Prot. Guaifenesin/Dextromethorphan (Guaifenesin-Dextromethorphan Udc 10 Ml) 10 ml PO Q6H PRN PRN Reason: COUGH Heparin Sodium (Porcine) (Heparin 5,000 Unit/Ml Inj 1 Ml) 5,000 unit SUBCUT Q12H YAW Dextrose (D5w) 500 mls @ 100 mls/hr IV ONCE PRN; Protocol PRN Reason: Adult Acute Hypoglycemia Prot Albumin Human (Albumin) 25 gm in 100 mls @ 60 mls/hr IV Q8H [facility] Last Infusion: 03/19/21 03:28 Dose: Infused Documented by: Lidocaine HCl 5 ml/ Potassium (Chloride) 105 mls @ 25 mls/hr IV ONCE ONE Stop: 03/19/21 10:46 Last Admin: 03/19/21 06:48 Dose: 25 mls/hr Documented by: Insulin Human Lispro (Insulin Lispro 100 Unit/1 Ml) 0 unit SUBCUT WM&BEDTIME [facility]; Protocol Last Admin: 03/19/21 00:09 Dose: Not Given Documented by: Lactulose (Lactulose Oral Liq 20 Gm/30 Ml Udc) [address] [facility] Metoprolol Tartrate (Metoprolol Tartrate 1 Mg/1 Ml Sdv 5 Ml) 5 mg IVP Q4H PRN PRN Reason: TACHYCARDIA Metoprolol Tartrate (Metoprolol Tartrate 25 Mg Tablet) 12.[address] [facility] Last Admin: 03/18/21 20:08 Dose: 12.5 mg Documented by: Multivitamins Therapeutic (Multivitamin Therapeutic Tablet) [address] [facility] Ondansetron HCl (Ondansetron 2 Mg/Ml Sdv 2 Ml) 4 mg IVP Q8H PRN PRN Reason: vomiting, or N/V if npo Pantoprazole Sodium (Pantoprazole 40 Mg Sdv) [address] [facility] Last Admin: 03/18/21 20:07 Dose: 40 mg Documented by: Thiamine Mononitrate (Thiamine 100 Mg Tablet) [address] [facility] Vitals/I&O/Wt Last Vital Signs Temp 95.9 F L 03/22/21 07:30 Pulse 76 03/22/21 15:00 Resp 20 H 03/22/21 15:56 BP 73/63 03/22/21 15:00 Pulse Ox 88 L 03/22/21 15:00 03/22/21 03/22/21 03/22/21 06:59 14:59 22:59 Intake Total 237.681 / 679.594 780.519 / 780.519 252.339 / 1032.858 Output Total 40 / 40 Balance 197.681 / 639.594 780.519 / 780.519 252.339 / 1032.858 Weight last 48 hrs Weight 96.332 kg Weight 96.785 kg Physical Exam Const: COMMON NORMALS: patient oriented x3 HENMT: COMMON NORMALS: normocephalic and atraumatic HEAD & SCALP: normocephalic and atraumatic Resp: OTHER: Bilateral diffuse crackles in both the lungs fritz, bilateral wheezing present in both lung fritz Cardio: OTHER: S1-S2 variable intensity, irregularly irregular rhythm GI: COMMON NORMALS: Soft to palpation and non-tender AUSCULTATION: Yes normoactive bowel sounds PALPATION: Yes Soft to palpation RECTAL EXAM: Yes deferred OTHER: Grossly distended abdomen with fluid thrills Extremity: NARRATIVE EXTREMITY EXAM: 2+ bilateral pitting edema present in both the extremities up to level of knee Neuro: COMMON NORMALS: patient oriented x3 Urinary Catheter Management^: Valadez: Cath Placed During This Visit: yes Reason for Continuing Indwelling Catheter: Accurate Measurement of Urinary Output in Critically Ill Patients Urinary Catheter Date of Insertion: 03/18/21 Urinary Catheter Time of Insertion: 18:34 Data : 03/22/21 04:45 03/22/21 04:45 Micro: Microbiology 03/19/21 14:00 Gram Stain - Final Ankle - Peritoneal Body Fluid Culture - Preliminary 03/21/21 21:50 Occult Blood (FIT) - Final Stool Routine Collection 03/20/21 17:03 Blood Culture - Preliminary Blood NEGATIVE TO DATE 03/20/21 17:03 Blood Culture - Preliminary Blood NEGATIVE TO DATE A&P Assessment and plan (1) Acute kidney injury superimposed on CKD: Status: Acute (2) Hepatorenal syndrome: Status: Acute (3) Alcoholism: Status: Acute (4) Anasarca: Status: Acute (5) Diastolic CHF: Status: Acute (6) Cirrhosis of liver: Status: Acute (7) Ascites: Status: Acute (8) Microscopic hematuria: Status: Acute (9) Type 2 diabetes mellitus with diabetic neuropathy, without long-term current use of insulin: Status: Acute (10) Hypokalemia: Status: Acute (11) Hypomagnesemia: Status: Acute (12) A-fib: Status: Acute (13) Hyponatremia: Status: Acute (14) Shock: Status: Acute Additional A&P Information 75 year old male with post medical history of COPD , diabetes , chronic smoker, history of alcoholism,HFpEF, decompensated liver cirrhosis secondary to alcohol abuse, chronic hyponatremia, CKD stage III, Came in with chief complaint of generalized weakness fatigue, cough, palpitation,wheezing, shortness of breath going on for last couple of days.He was also complaining of worsening abdominal swelling,worsening bilateral lower extremity swelling. # ELZBIETA ON CKD stage III: Likely 2/2 TO HRS, +/- CRS from dialstolic dysfunction. Current plan is to fluid restrict the patient, continue with IV albumin. Midodrine and octreotide has been added. Appreciate renal inputs Shock : Combination of decompensated heart failure as well as possible underlying sepsis secondary to pneumonia. Leukocytosis, hypotension. Blood cultures Lactic acid Procalcitonin Peritoneal fluid culture Continue Vanco and Zosyn #Severe hypokalemia: Likely secondary to recent diuretic use. Monitor and replace potassium. Low dose spironlactone #Hypomagnesemia: Likely secondary to alcohol use as well as diuretic, monitor and replace serum magnesium #Chronic hyponatremia: Secondary to decompensated liver cirrhosis, diuretics, as well as Heart failure continue to fluid restrict the patient #HFpEF : Decompensated heart failure with preserved ejection fraction. Lasix 40 mg IV every 12 hours daily Intake output charting Daily weight k>4, mg>2 Spironolactone was discontinued as the patient is hypotensive #New onset A. fib: Likely secondary to severe electrolyte abnormality. Heart rate is well controlled Metoprolol tartrate 12.5 mg twice daily currently on hold Will hold off on Ac for now given down trending Hb. FOBT #Gross ascites: S/P Ultrasound guided paracentesis with removal of 4Ls ascitic fluid. Peritoneal fluid WBC: 287. Peritoneal fluid culture awaited. Follow blood culture Peritoneal fluid culture Empirically on Zosyn #Anasarca: Secondary to liver cirrhosis and heart failure #Diabetes: SSI, carb consistent diet, monitor fingerstick glucose #CODE STATUS: Full code #DVT prophylaxis: subcu heparin. #Disposition: Discharged home Coding Level of Care Code Acute Manager Financial for [facility] Fwd Diagnoses Acute kidney injury superimposed on CKD N17.9; N18.9 Hepatorenal syndrome K76.7 Alcoholism F10.20 Anasarca R60.1 Diastolic CHF I50.30 Cirrhosis of liver K74.60 Ascites R18.8 Microscopic hematuria R31.29 Type 2 diabetes mellitus with diabetic neuropathy, without long-term current use of insulin E11.40 Hypokalemia E87.6 Hypomagnesemia E83.42 A-fib I48.91 Hyponatremia E87.1 Shock R57.9
--- NOTE | 2021-03-22 16:22 | PM.PN ---
Subjective Subjective: Interval history: I am seeing him in follow up for his renal failure. No new issues overnight. Still requiring levophed Medications: Reviewed: Yes Vitals/I&O/Wt Last Vital Signs Temp 95.9 F L 03/22/21 07:30 Pulse 76 03/22/21 15:00 Resp 20 H 03/22/21 15:56 BP 73/63 03/22/21 15:00 Pulse Ox 88 L 03/22/21 15:00 03/22/21 03/22/21 03/22/21 06:59 14:59 22:59 Intake Total 237.681 / 679.594 780.519 / 780.519 252.339 / 1032.858 Output Total 40 / 40 Balance 197.681 / 639.594 780.519 / 780.519 252.339 / 1032.858 Weight last 48 hrs Weight 96.332 kg Weight 96.785 kg Physical Exam Const: EXAM LIMITATIONS: altered mental status GENERAL APPEARANCE: in distress and lethargic ORIENTATION/CONSCIOUSNESS: Yes lethargic Resp: AUSCULTATION: crackles Cardio: COMMON NORMALS: S1 normal heart sound present and S2 normal heart sound present HEART SOUNDS: S1 normal heart sound present and S2 normal heart sound present GI: AUSCULTATION: Yes normoactive bowel sounds Extremity: GENERAL: Yes edema Neuro: SENSORIUM/ORIENTATION: Yes lethargic Skin: COMMON NORMALS: no rashes or lesions noted GENERAL SKIN EXAM: no rashes or lesions noted Urinary Catheter Management^: Valadez: Cath Placed During This Visit: yes Reason for Continuing Indwelling Catheter: Accurate Measurement of Urinary Output in Critically Ill Patients Urinary Catheter Date of Insertion: 03/18/21 Urinary Catheter Time of Insertion: 18:34 Data : 03/22/21 04:45 03/22/21 04:45 Micro: Microbiology 03/19/21 14:00 Gram Stain - Final Ankle - Peritoneal Body Fluid Culture - Preliminary 03/21/21 21:50 Occult Blood (FIT) - Final Stool Routine Collection 03/20/21 17:03 Blood Culture - Preliminary Blood NEGATIVE TO DATE 03/20/21 17:03 Blood Culture - Preliminary Blood NEGATIVE TO DATE A&P Assessment and plan (1) ELZBIETA (acute kidney injury): Kidney function continues to get worse. D/w and pt's family in detail regarding dialysis. Family does not want dialysis. They are leaning towards making pt comfort measures. Status: Acute (2) Congestive heart failure: Ok to give iv lasix prn Status: Acute (3) Hyponatremia: Will monitor Status: Acute (4) Anemia: Follow hb Status: Acute (5) Acidosis: If persistent, add sodiumbicarbonate suppliments Status: Acute (6) Hypotension: Titrate levophed to keep map above 60 Status: Acute Attestations Medical Necessity Statement*: Renal failure Coding Level of Care Code Acute Commodity Industry Analyst for [facility] Fwd Diagnoses ELZBIETA (acute kidney injury) N17.9 Congestive heart failure I50.9 Hyponatremia E87.1 Anemia D64.9 Acidosis E87.2 Hypotension I95.9
--- NOTE | 2021-03-22 16:30 | PM.DDS ---
Discharge Providers DDS Date of Admission: 03/18/21 17:07 Date Summary Completed: 03/27/21 Attending Provider at Admission: Chriss Patel MD Time of : 16:06 Attending Provider at Discharge: Chriss Patel MD Primary Care Provider: DO IZAIAH Ramesh Diagnoses Hospital Diagnoses (1) Acute kidney injury superimposed on CKD: (2) Hepatorenal syndrome: (3) Alcoholism: (4) Anasarca: (5) Diastolic CHF: (6) Cirrhosis of liver: (7) Ascites: (8) Microscopic hematuria: (9) Type 2 diabetes mellitus with diabetic neuropathy, without long-term current use of insulin: (10) Hypokalemia: (11) Hypomagnesemia: (12) A-fib: (13) Hyponatremia: (14) Shock: Reason for Visit Reason for Visit: NEW ONSET OF AFIB Summary Date and Time of Date of : 03/22/21 Time of : 16:06 Summary Summary: 75 year old male with post medical history of COPD , diabetes , chronic smoker, history of alcoholism,HFpEF, decompensated liver cirrhosis secondary to alcohol abuse, chronic hyponatremia, CKD stage III, Came in with chief complaint of generalized weakness fatigue, cough, palpitation,wheezing, shortness of breath going on for last couple of days.He was also complaining of worsening abdominal swelling,worsening bilateral lower extremity swelling. Today he was in GI Lab for an outpatient paracentesis, was found to be in A. fib with RVR, patient was advised to go to emergency room.He was admitted for the management of ELZBIETA on CKD Stage 3 ( multifactrial HRS, CRS , ), CRS from dialstolic dysfunction.Severe hypokalemia: Likely secondary to recent diuretic use. Hypomagnesemia: Likely secondary to alcohol use as well as diuretic, Chronic hyponatremia: Secondary to decompensated liver cirrhosis, diuretics,relative hypervolemia, Decompensated HFpEF : New onset A. fib: Likely secondary to severe electrolyte abnormality. Gross ascites: Anasarca: and his other comorbid conditions.Nephrology was board.Patient underwent U/S Guided paracentesis, with removal of 4Ls ascitic fluid. Peritoneal fluid WBC: 287.pertitoneal fluid culture was negative as well as blood cultures,patient was kept on albumin I.V as well as midodrine and osteotride for HRS,intially he was kept on fluid restriction for decompensated CRS and aggressive electrolytes correction was undertaken later aggressive i.v diuresis was also attempted,as the kidney function started getting progressively worsened after initial slight improvement, but unfortunately patient likely had developed diuretic resistant ARF, patient became anuric and failed to respond to bolus high dose I.V diuretic as well as I.V bumix drip.Family was provided with the option of H/D but they reasonably declined.Hospital course was also complicated by the development of Shock likely multifactorail ( H/F, sepsis 2/2 PNA ), for which he was on broad spectrum abxs as well as on vasopressors. Inspite of all these aggressive intervention patient failed to respond, he also went into hypoxic r/f 2/2 to heart failure, pna,volume overload and was requiring NRM. Family lately decided to make him comfort care.Family wishes were honoured and he was made comfort care.Patient on 03/22/2021 at 16:06, family being at bedside. Additional Data Confirmation of as documented by pronouncing clinician: no pulse, no respirations, no heart sounds and pupils fixed and dilated Family: at bedside Additional persons at bedside: nursing staff Attending/PCP notified?: I am attending Was code activated?: No Autopsy requested?: No Advance directives?: No Hospice patient?: No Discharge Plan Discharge Patient Disposition: Condition: Prescriptions: No Action albuterol sulfate 90 mcg/actuation HFA aerosol inhaler 2 puff INHALATION Q4H MDD 12 puffs PRN (Reason: Shortness Of Breath) RF: 0 (DME) CAM WALKER Qty: 1 RF: 0 furosemide 40 mg tablet 40 mg PO BID RF: 0 lactulose 10 gram/15 mL solution 30 ml PO DAILY RF: 0 Vitamin B-1 100 mg Tablet 100 mg PO DAILY RF: 0 potassium chloride 10 mEq tablet extended release 10 meq PO DAILY PRN (Reason: take with lasix) RF: 0 spironolactone 25 mg tablet 25 mg PO DAILY RF: 0 Pepcid 20 mg Tablet 20 mg PO DAILY PRN (Reason: Heartburn) RF: 0 pantoprazole 40 mg tablet,delayed release (DR/EC) 40 mg PO DAILY RF: 0 folic acid 1 mg Tablet 1 mg PO DAILY RF: 0 furosemide 20 mg tablet 20 mg PO DAILY PRN (Reason: Edema) RF: 0 gabapentin 100 mg capsule 200 mg PO .HAS BUT NOT TAKING RF: 0 Therems Multivitamin 400 mcg Tablet 1 tab PO DAILY RF: 0 Vitamin B-12 5,000 mcg/mL Drops 5,000 mcg PO PRN RF: 0 Januvia 100 mg tablet 50 mg PO QAM RF: 0 Referrals: Cristo Mccormick, [Primary Care Provider] - DS Attestations Time Spent in /Discharge Care*: less than 30 min Quality - AMI: AMI present?: No Quality - Stroke: CVA present?: No Quality - VTE: VTE present?: No Deep Vein Thrombosis/Pulmonary Embolism Present on Admission: No Coding Level of Care Code Acute Service Desk Manager for Chg Fwd Diagnoses Acute kidney injury superimposed on CKD N17.9; N18.9 Hepatorenal syndrome K76.7 Alcoholism F10.20 Anasarca R60.1 Diastolic CHF I50.30 Cirrhosis of liver K74.60 Ascites R18.8 Microscopic hematuria R31.29 Type 2 diabetes mellitus with diabetic neuropathy, without long-term current use of insulin E11.40 Hypokalemia E87.6 Hypomagnesemia E83.42 A-fib I48.91 Hyponatremia E87.1 Shock R57.9
--- NOTE | 2021-03-22 16:45 | PC.NURSE ---
1606 TOD, family at bedside, Dr. Patel notified. Verified with NGUYEN RN, by no pulse, no hr, no respirations, asystole in all leads. Family chose [facility] in [facility].
--- NOTE | 2021-03-22 16:53 | PC.NURSE ---
MTS called by Patient Service Rep Mone Feliz RN.
== END 2021-03-22 21:00 | disposition expired | DRG 441 ==
LOC: ER 17:40 → ICU 20:42
PROVIDERS: Internal Medicine Nephrology; Admitting Provider Internal Medicine; Emergency Provider Family Medicine; PCP Family Medicine; Visit Provider Internal Medicine
DX: K76.7 Hepatorenal syndrome (principal); I50.33 Acute on chronic diastolic (congestive) heart failure; A41.9 Sepsis, unspecified organism; J18.9 Pneumonia, unspecified organism; N17.9 Acute kidney failure, unspecified; E87.1 Hypo-osmolality and hyponatremia; R57.9 Shock, unspecified; I13.0 Hypertensive heart and chronic kidney disease with heart failure and stage 1 through stage 4 chronic kidney disease, or unspecified chronic kidney disease; E11.22 Type 2 diabetes mellitus with diabetic chronic kidney disease; F10.20 Alcohol dependence, uncomplicated; K70.31 Alcoholic cirrhosis of liver with ascites; R31.29 Other microscopic hematuria; E11.40 Type 2 diabetes mellitus with diabetic neuropathy, unspecified; E87.6 Hypokalemia; E83.42 Hypomagnesemia; I48.91 Unspecified atrial fibrillation; F17.210 Nicotine dependence, cigarettes, uncomplicated; N18.32 Chronic kidney disease, stage 3b; J44.9 Chronic obstructive pulmonary disease, unspecified; Z79.84 Long term (current) use of oral hypoglycemic drugs; K21.9 Gastro-esophageal reflux disease without esophagitis; D64.9 Anemia, unspecified
CPT/HCPCS: 36415; 36416; 49083; 51702; 71045; 76705; 76770; 80048; 80053; 80061; 80069; 80500; 81001; 82140; 82274; 82306; 82310; 82570; 82728; 82962; 83540; 83550; 83605; 83735; 83880; 83883; 83930; 83935; 83970; 84100; 84145; 84155; 84156; 84165; 84300; 84439; 84443; 84484; 85025; 85610; 85730; 87040; 87070; 87075; 87086; 87205; 89050; 93005; 94640; 96365; 96366; 96372; 96375; 99291; C9113; J1644; J1815; J1940; J2270; J2354; J2543; J3370; J3475; J3480; J3490; J7050; J7608; P9047; Q3014